=== PATIENT | male | born 1975 | race American Indian/Alaskan Native ===

== ENCOUNTER 2021-01-05 10:18 | Observation (INO) | payer SELFPAY ==
[2021-01-05] MEDS ORDERED: ONDANSETRON 4 MG/2 ML INJ IV ONE (16:46)
[2021-01-05] MEDS ORDERED: SODIUM CHLORIDE 0.9% 1000 ML 1,000 ML IV ONE (16:46)
[2021-01-05] MEDS ORDERED: MORPHINE 4 MG/1 ML INJ IV ONE (16:46)
[2021-01-05 17:41] LABS: Hematocrit 23.7 % (35.5-45.6); Hemoglobin 7.9 gm/dl (11.8-15.2); Mean Corpuscular HGB Conc 33 % (32-34); Mean Corpuscular Volume 83 fl (84-94); Red Blood Count 2.86 M/mm3 (3.65-5.03); Red Cell Distribution Width 19.8 % (13.2-15.2)
[2021-01-05 17:42] LABS: Platelet Count 93 K/mm3 (140-440)
[2021-01-05 17:51] LABS: Alanine Aminotransferase 100 units/L (7-56); Albumin 3.1 g/dL (3.9-5); BUN/Creatinine Ratio 7; Blood Urea Nitrogen 6 mg/dL (9-20); Hemolysis Index 0
--- NOTE | 2021-01-05 17:51 | Emergency Department Report ---
ED Abdominal Pain HPI - General Chief Complaint: Psych Stated Complaint: ABDOMINAL PAIN FROM SURGERY Time Seen by Provider: 01/05/21 16:45 Source: patient, EMS Mode of arrival: Ambulatory Limitations: No Limitations - History of Present Illness Initial Comments: This is a 45-year-old male nontoxic, well nourished in appearance, no acute signs of distress presents to the ED with c/o of nausea and vomiting and abdominal pain several days. Patient stated has history of appendectomy 2 weeks ago. Stated has a general surgeon scheduled for post-op next week. Patient describes vomiting as food content and yellow gastric acid. Patient describes abdominal pain as cramping and aching with level of 8/10 diffuse. Patient denies chest pain, short of breath, fever, hemoptysis, blood in stool, chills, headache, stiff neck, numbness or tingling. Patient denies any diarrhea or constipation. Denies any blood in stool. Patient denies any recent travels. Patient stated allergies to PCN. Stated past medical history includes appendectomy, asthma and psych. Patient stated has been feeling anxious due to pain. Denies any suicidal homicidal ideation. Denies any psychiatric complications or symptoms. MD Complaint: abdominal pain -: days(s) Location: diffuse Radiation: none Migration to: no migration Severity: moderate Severity scale (0 -10): 10 Quality: cramping, aching Improves With: nothing Worsens With: nothing Associated Symptoms: nausea, vomiting. denies: diarrhea, fever, chills, constipation, dysuria, hematemesis, hematochezia, melena, hematuria, anorexia, syncope - Related Data Allergies Allergy/AdvReac Type Severity Reaction Status Date / Time Penicillins Allergy Angioedema Verified 01/03/16 16:56 ED Review of Systems ROS: Stated complaint: ABDOMINAL PAIN FROM SURGERY Other details as noted in HPI Comment: All other systems reviewed and negative Constitutional: denies: chills, fever Eyes: denies: eye pain, eye discharge, vision change ENT: denies: ear pain, throat pain Respiratory: denies: cough, shortness of breath, wheezing Cardiovascular: denies: chest pain, palpitations Endocrine: no symptoms reported Gastrointestinal: abdominal pain, nausea, vomiting. denies: diarrhea, constipation, hematemesis, melena, hematochezia Genitourinary: denies: urgency, dysuria Musculoskeletal: denies: back pain, joint swelling, arthralgia Skin: denies: rash, lesions Neurological: denies: headache, weakness, paresthesias Psychiatric: denies: anxiety, depression Hematological/Lymphatic: denies: easy bleeding, easy bruising ED Past Medical Hx - Past Medical History Previous Medical History?: Yes Hx Psychiatric Treatment: Yes (anxiety) Hx Asthma: Yes - Surgical History Past Surgical History?: Yes Hx Appendectomy: Yes - Social History Smoking Status: Never Smoker Substance Use Type: None ED Physical Exam - General Limitations: No Limitations General appearance: alert, in no apparent distress - Head Head exam: Present: atraumatic, normocephalic - Eye Eye exam: Present: normal appearance - Neck Neck exam: Present: normal inspection, full ROM. Absent: tenderness, meningismus, lymphadenopathy - Respiratory Respiratory exam: Present: normal lung sounds bilaterally. Absent: respiratory distress, wheezes, rales, rhonchi, stridor, chest wall tenderness, accessory muscle use, decreased breath sounds, prolonged expiratory - Cardiovascular Cardiovascular Exam: Present: regular rate, normal rhythm, normal heart sounds. Absent: bradycardia, tachycardia, irregular rhythm, systolic murmur, diastolic murmur, rubs, gallop - GI/Abdominal GI/Abdominal exam: Present: soft, tenderness (diffuse), normal bowel sounds, other (kaya present to midline abdomen area s/p surgery). Absent: distended, guarding, rebound, rigid, diminished bowel sounds - Extremities Exam Extremities exam: Present: normal inspection, full ROM - Back Exam Back exam: Present: normal inspection, full ROM. Absent: tenderness, CVA tenderness (R), CVA tenderness (L), muscle spasm, paraspinal tenderness, vertebral tenderness, rash noted - Neurological Exam Neurological exam: Present: alert, oriented X3, normal gait - Psychiatric Psychiatric exam: Present: normal affect, normal mood - Skin Skin exam: Present: warm, dry, intact, normal color. Absent: rash ED Course Vital Signs 01/05/21 01/05/21 01/05/21 10:42 17:56 17:57 Temperature 98.8 F 97.8 F Pulse Rate 92 H 73 Respiratory 20 20 Rate Blood Pressure 127/85 Blood Pressure 131/72 [Right] O2 Sat by Pulse 96 99 100 Oximetry 01/05/21 01/05/21 01/05/21 19:45 20:00 20:16 Temperature Pulse Rate 61 72 Respiratory 12 11 L Rate Blood Pressure 127/81 127/81 Blood Pressure [Right] O2 Sat by Pulse 100 98 100 Oximetry - Reevaluation(s) Reevaluation #1: 01/05/21 19:14 Patient is speaking in full sentences with no signs of distress noted. - Consultations Consultation #1: 01/05/21 17:50 Patient has been consulted with Dr. Pearce about patient history, physical exam, and labs and agrees to the ED plan of care and admission. Consultation #2: 01/05/21 19:38 Patient has been consulted with Dr. Pearce about final lab results and imaging results and no blood transfusion at this time but patient to be admitted. Consultation #3: 01/05/21 21:24 Patient has been consulted with Dr. Chavez about patient history, physical exam, and labs/imaging results and accepts patient to services. ED Medical Decision Making - Lab Data Result diagrams: 01/05/21 17:19 01/05/21 17:19 Lab Results 01/05/21 01/05/21 01/05/21 Range/Units 17:19 17:19 17:57 WBC 1.6 L* (4.5-11.0) K/mm3 RBC 2.86 L (3.65-5.03) M/mm3 Hgb 7.9 L (11.8-15.2) gm/dl Hct 23.7 L (35.5-45.6) % MCV 83 L (84-94) fl MCH 28 (28-32) pg MCHC 33 (32-34) % RDW 19.8 H (13.2-15.2) % Plt Count 93 L (140-440) K/mm3 [place] % (Auto) [employer] Add Manual Diff Complete Total Counted 50 Seg Neuts % (Manual) 64.0 (40.0-70.0) % Lymphocytes % (Manual) 22.0 (13.4-35.0) % Monocytes % (Manual) 12.0 H (0.0-7.3) % Eosinophils % (Manual) 2.0 (0.0-4.3) % Nucleated RBC % Not Reportable Seg Neutrophils # Man 1.0 L (1.8-7.7) K/mm3 Band Neutrophils # 0.0 K/mm3 Lymphocytes # (Manual) 0.4 L (1.2-5.4) K/mm3 Abs React Lymphs (Man) 0.0 K/mm3 Monocytes # (Manual) 0.2 (0.0-0.8) K/mm3 Eosinophils # (Manual) 0.0 (0.0-0.4) K/mm3 Basophils # (Manual) 0.0 (0.0-0.1) K/mm3 Metamyelocytes # 0.0 K/mm3 Myelocytes # 0.0 K/mm3 Promyelocytes # 0.0 K/mm3 Blast Cells # 0.0 K/mm3 WBC Morphology Not Reportable Hypersegmented Neuts Not Reportable Hyposegmented Neuts Not Reportable Hypogranular Neuts Not Reportable Smudge Cells Not Reportable Toxic Granulation Not Reportable Toxic Vacuolation Not Reportable Dohle Bodies Not Reportable Pelger-Huet Anomaly Not Reportable Steffi Rods Not Reportable Platelet Estimate Consistent w auto Clumped Platelets Not Reportable Plt Clumps, EDTA Not Reportable Large Platelets Not Reportable Giant Platelets Not Reportable Platelet Satelliting Not Reportable Plt Morphology Comment Not Reportable RBC Morphology Not Reportable Dimorphic RBCs Not Reportable Polychromasia Not Reportable Hypochromasia Not Reportable Poikilocytosis 2+ Anisocytosis 1+ Microcytosis Not Reportable Macrocytosis Not Reportable Spherocytes Not Reportable Pappenheimer Bodies Not Reportable Sickle Cells Not Reportable Target Cells Not Reportable Tear Drop Cells Not Reportable Ovalocytes 1+ Helmet Cells Not Reportable [place] Bodies Not Reportable [place] Rings Not Reportable [place] Cells Few Bite Cells Not Reportable Crenated Cell Not Reportable Elliptocytes Few Acanthocytes (Spur) Not Reportable Rouleaux Not Reportable Hemoglobin C Crystals Not Reportable Schistocytes Rare Malaria parasites Not Reportable Josue Bodies Not Reportable Hem Pathologist Commnt No PT 13.3 (12.2-14.9) Sec. INR 0.95 (0.87-1.13) APTT 37.1 H (24.2-36.6) Sec. Sodium 141 (137-145) mmol/L Potassium 3.3 L (3.6-5.0) mmol/L Chloride 105.1 (98-107) mmol/L Carbon Dioxide 27 (22-30) mmol/L Anion Gap 12 mmol/L BUN 6 L (9-20) mg/dL Creatinine 0.9 (0.8-1.3) mg/dL Estimated GFR > 60 ml/min BUN/Creatinine Ratio 7 % Glucose 86 (75-100) mg/dL Calcium 8.0 L (8.4-10.2) mg/dL Total Bilirubin 0.30 (0.1-1.2) mg/dL AST 202 H (5-40) units/L ALT 100 H (7-56) units/L Alkaline Phosphatase 98 (35-129) units/L Troponin T (0.00-0.029) ng/mL Total Protein 6.6 (6.3-8.2) g/dL Albumin 3.1 L (3.9-5) g/dL Albumin/Globulin Ratio 0.9 % Lipase 162 H (13-60) units/L Blood Type Antibody Screen 01/05/21 01/05/21 Range/Units 17:57 17:57 WBC (4.5-11.0) K/mm3 RBC (3.65-5.03) M/mm3 Hgb (11.8-15.2) gm/dl Hct (35.5-45.6) % MCV (84-94) fl MCH (28-32) pg MCHC (32-34) % RDW (13.2-15.2) % Plt Count (140-440) K/mm3 [place] % (Auto) Add Manual Diff Total Counted Seg Neuts % (Manual) (40.0-70.0) % Lymphocytes % (Manual) (13.4-35.0) % Monocytes % (Manual) (0.0-7.3) % Eosinophils % (Manual) (0.0-4.3) % Nucleated RBC % Seg Neutrophils # Man (1.8-7.7) K/mm3 Band Neutrophils # K/mm3 Lymphocytes # (Manual) (1.2-5.4) K/mm3 Abs React Lymphs (Man) K/mm3 Monocytes # (Manual) (0.0-0.8) K/mm3 Eosinophils # (Manual) (0.0-0.4) K/mm3 Basophils # (Manual) (0.0-0.1) K/mm3 Metamyelocytes # K/mm3 Myelocytes # K/mm3 Promyelocytes # K/mm3 Blast Cells # K/mm3 WBC Morphology Hypersegmented Neuts Hyposegmented Neuts Hypogranular Neuts Smudge Cells Toxic Granulation Toxic Vacuolation Dohle Bodies Pelger-Huet Anomaly Steffi Rods Platelet Estimate Clumped Platelets Plt Clumps, EDTA Large Platelets Giant Platelets Platelet Satelliting Plt Morphology Comment RBC Morphology Dimorphic RBCs Polychromasia Hypochromasia Poikilocytosis Anisocytosis Microcytosis Macrocytosis Spherocytes Pappenheimer Bodies Sickle Cells Target Cells Tear Drop Cells Ovalocytes Helmet Cells [place] Bodies [place] Rings [place] Cells Bite Cells Crenated Cell Elliptocytes Acanthocytes (Spur) Rouleaux Hemoglobin C Crystals Schistocytes Malaria parasites Josue Bodies Hem Pathologist Commnt PT (12.2-14.9) Sec. INR (0.87-1.13) APTT (24.2-36.6) Sec. Sodium (137-145) mmol/L Potassium (3.6-5.0) mmol/L Chloride (98-107) mmol/L Carbon Dioxide (22-30) mmol/L Anion Gap mmol/L BUN (9-20) mg/dL Creatinine (0.8-1.3) mg/dL Estimated GFR ml/min BUN/Creatinine Ratio % Glucose (75-100) mg/dL Calcium (8.4-10.2) mg/dL Total Bilirubin (0.1-1.2) mg/dL AST (5-40) units/L ALT (7-56) units/L Alkaline Phosphatase (35-129) units/L Troponin T < 0.010 (0.00-0.029) ng/mL Total Protein (6.3-8.2) g/dL Albumin (3.9-5) g/dL Albumin/Globulin Ratio % Lipase (13-60) units/L Blood Type B POSITIVE Antibody Screen Negative - EKG Data 01/05/21 20:14 Normal sinus bradycardia at [address] or T wave abnormalities. No STEMI. Reviewed and signed by Brien Fischer. - Radiology Data [facility] [address] [place] [address] XRay Report Signed Patient: ALEJANDRO JARRELL MR#: [id number] : 1975 Acct:[id number] Age/Sex: 45 / M ADM Date: 01/05/21 Loc: ED Attending Dr: Ordering Physician: BRENDA SANTIAGO NP Date of Service: 01/05/21 Procedure(s): XR chest routine 2V Accession Number(s): [id number] cc: BRENDA SANTIAGO NP Fluoro Time In Minutes: CHEST 2 VIEWS INDICATION / CLINICAL INFORMATION: Chest Pain. COMPARISON: None available. FINDINGS: SUPPORT DEVICES: None. HEART / MEDIASTINUM: No significant abnormality. LUNGS / PLEURA: No significant pulmonary or pleural abnormality. No pneumothorax. ADDITIONAL FINDINGS: No significant additional findings. IMPRESSION: 1. No acute findings. Signer Name: Viktor Petty MD Signed: 01/05/2021 6:28 PM Workstation Name: [id number] Transcribed By: SS Dictated By: Viktor Petty MD Electronically Authenticated By: Viktor Petty MD Signed Date/Time: 01/05/211827 DD/ 27 TD/TT: [place] [address] Cat Scan Report Signed Patient: ALEJANDRO JARRELL MR#: [id number] : 1975 Acct:[id number] Age/Sex: 45 / M ADM Date: 01/05/21 Loc: ED Attending Dr: Ordering Physician: BRENDA SANTIAGO NP Date of Service: 01/05/21 Procedure(s): CT abdomen pelvis w con Accession Number(s): [id number] cc: BRENDA SANTIAGO NP CT OF THE ABDOMEN AND PELVIS WITH INTRAVENOUS CONTRAST INDICATION / CLINICAL INFORMATION: Abdominal pain with nausea and vomiting s/p appendectomy. TECHNIQUE: The patient received 100 cc Omnipaque [address] scans at this location are performed using CT dose reduction for ALARA by means of automated exposure control. COMPARISON: None available. FINDINGS: ABDOMEN: The liver, gallbladder, bile ducts, pancreas, spleen, adrenal glands and kidneys are normal in appearance. There is no evidence of bowel obstruction, wall thickening or free air. No adenopathy is present. The lung bases are clear. PELVIS: The distal ureters and urinary bladder are normal. The prostate gland and seminal vesicles are unremarkable. The appendix is surgically absent. There are surgical clips involving the lower anterior abdominal wall in the midline. There is no evidence of diverticulitis. No abnormal mass or fluid collection is seen. I do not identify a hernia. Bilateral small symmetric inguinal lymph nodes are likely reactive. No acute osseous abnormality is seen. IMPRESSION: Prior appendectomy. No acute intra-abdominal disease is identified. No complication of surgery is seen. Signer Name: Khanh Jarquin MD Signed: 01/05/2021 6:44 PM Workstation Name: [id number] Transcribed By: RT Dictated By: Khanh Jarquin MD Electronically Authenticated By: Khanh Jarquin MD Signed Date/Time: 01/05/211843 DD/ 39 TD/TT: - Medical Decision Making 36-year-old male that presents with thrombocytopenia, neutropenia, abdominal pain with nausea vomiting. Patient is stable and was examined by me. Patient consulted with my attending Dr. Pearce which agrees to the ED plan of care and admission. Patient admitted with hospitalist Dr. Chavez. Patient is notified of the lab results and imaging results with no questions noted by the patient. Patient received IV resuscitation which stated pain is under control with no n/v. At time of admission, the patient does not seem toxic or ill in appearance. No acute signs of distress noted. Patient agrees to admission treatment plan of care. No further questions noted by the patient. Critical care attestation.: If time is entered above; I have spent that time in minutes in the direct care of this critically ill patient, excluding procedure time. ED Disposition Clinical Impression: Thrombocytopenia, Abdominal pain of unknown cause Neutropenia Qualifiers: Neutropenia type: unspecified Qualified Code(s): D70.9 - Neutropenia, unspecified Nausea & vomiting Qualifiers: Vomiting type: unspecified Vomiting Intractability: non-intractable Qualified Code(s): R11.2 - Nausea with vomiting, unspecified Disposition: ADMITTED INPATIENT Is pt being admited?: Yes Condition: Stable
[2021-01-05] MEDS ORDERED: POTASSIUM CHLORIDE ER 20 MEQ TAB PO ONE (18:07)
--- NOTE | 2021-01-05 18:33 | XRay Report ---
CHEST 2 VIEWS INDICATION / CLINICAL INFORMATION: Chest Pain. COMPARISON: None available. FINDINGS: SUPPORT DEVICES: None. HEART / MEDIASTINUM: No significant abnormality. LUNGS / PLEURA: No significant pulmonary or pleural abnormality. No pneumothorax. ADDITIONAL FINDINGS: No significant additional findings. IMPRESSION: 1. No acute findings. Signer Name: Viktor Petty MD Signed: 01/05/2021 6:28 PM Workstation Name: [id number]
[2021-01-05 18:41] LABS: INR 0.95 (0.87-1.13)
[2021-01-05 18:42] LABS: Partial Thromboplastin Time 37.1 Sec. (24.2-36.6)
--- NOTE | 2021-01-05 18:48 | Cat Scan Report ---
CT OF THE ABDOMEN AND PELVIS WITH INTRAVENOUS CONTRAST INDICATION / CLINICAL INFORMATION: Abdominal pain with nausea and vomiting s/p appendectomy. TECHNIQUE: The patient received 100 cc Omnipaque [address] scans at this location are performed using CT dose reduction for ALARA by means of automated exposure control. COMPARISON: None available. FINDINGS: ABDOMEN: The liver, gallbladder, bile ducts, pancreas, spleen, adrenal glands and kidneys are normal in appearance. There is no evidence of bowel obstruction, wall thickening or free air. No adenopathy is present. The lung bases are clear. PELVIS: The distal ureters and urinary bladder are normal. The prostate gland and seminal vesicles ar e unremarkable. The appendix is surgically absent. There are surgical clips involving the lower anter ior abdominal wall in the midline. There is no evidence of diverticulitis. No abnormal mass or fluid collection is seen. I do not identify a hernia. Bilateral small symmetric inguinal lymph nodes are li geri reactive. No acute osseous abnormality is seen. IMPRESSION: Prior appendectomy. No acute intra-abdominal disease is identified. No complication of bolaños rgery is seen. Signer Name: Khanh Jarquin MD Signed: 01/05/2021 6:44 PM Workstation Name: [id number]
[2021-01-05 19:48] LABS: Anisocytosis 1+; Poikilocytosis 2+; Total Cells Counted 50
[2021-01-05 19:49] LABS: Burr Cells Few; Ovalocytes 1+; Platelet Estimate Consistent w Auto; Schistocytes Rare
[2021-01-05] MEDS ORDERED: VANCOMYCIN/NS 1 GM/250 ML 1 GM/250 ML BAG IV ONE (21:32)
--- NOTE | 2021-01-05 22:08 | History and Physical Report ---
History of Present Illness Date of examination: 01/05/21 Date of admission: 01/05 Chief complaint: abdominal pain History of present illness: This is a 45-year-old male that presented to ED with chief complaint of abdominal pain and nausea and vomiting. Patient stated has history of appendectomy 2 weeks ago. Patient describes abdominal pain as cramping and aching with level of 9/10 diffuse. Patient denies chest pain, short of breath, fever, hemoptysis, blood in stool, chills, headache, stiff neck, numbness or tingling. Patient denies any diarrhea or constipation. Patient denies tobacco use, alcohol use and illicit drug use. Patient said he lives in [place]. He is visiting nephew and started having abdominal pain, then he came to the hospital. Patient said he will be going back to [facility] when discharged. Patient said he lives alone but may not be able to live by himself anymore because of his illness. Reviewed lab medication record, and vital signs. Patient has no all blood counts including WBC and platelet level. Heme oncologist has been consulted. CT of the abdomen done with no acute finding. Past History Past Medical History: other (Appendicitis, asthma, and anxiety) Past Surgical History: Other (Appendectomy) Social history: Lives alone Family history: no significant family history Medications and Allergies Allergies Allergy/AdvReac Type Severity Reaction Status Date / Time Penicillins Allergy Angioedema Verified 01/03/16 16:56 Active Meds: Active Medications Vancomycin HCl (Vancomycin/Ns 1 Gm/250 Ml) 1 gm in 250 mls @ 167.007 mls/hr IV ONCE ONE; Protocol Stop: 01/05/21 23:01 Levofloxacin/Dextrose (Levaquin 750mg/150ml) 750 mg in 150 mls @ 100 mls/hr IV ONCE ONE; Protocol Stop: 01/05/21 23:03 Review of Systems Constitutional: fatigue, weakness Ears, nose, mouth and throat: no epistaxis, no bleeding gums Cardiovascular: no chest pain Respiratory: no wheezing Gastrointestinal: abdominal pain, nausea Genitourinary Male: no genital sores Rectal: no hemorrhoids Musculoskeletal: muscle weakness Integumentary: rash (Dry scaly rash but no open sores) Neurological: no convulsions Psychiatric: anxiety Hematologic/Lymphatic: no easy bruising, no easy bleeding Allergic/Immunologic: no urticaria Exam - Constitutional Vitals: Temp Pulse Resp BP Pulse Ox 97.8 F 72 11 L 127/81 100 01/05/21 17:56 01/05/21 20:16 01/05/21 20:16 01/05/21 20:16 01/05/21 20:16 General appearance: Present: mild distress, other (Fragile appearing patient) - EENT Eyes: Absent: exopthalmos ENT: hearing intact, clear oral mucosa - Neck Neck: Present: supple, normal ROM - Respiratory Respiratory effort: normal Respiratory: bilateral: CTA - Cardiovascular Heart Sounds: Present: S1 & S2. Absent: rub, click - Extremities Extremities: pulses symmetrical, No edema Peripheral Pulses: within normal limits - Abdominal General gastrointestinal: Present: soft, tender, non-distended, normal bowel sounds, other (Abdominal incision from appendectomy tender on palpation, no drainage, kaya intact) Male genitourinary: Present: normal - Integumentary Integumentary: Present: clear, warm, dry - Musculoskeletal Musculoskeletal: gait normal, strength equal bilaterally - Psychiatric Psychiatric: appropriate mood/affect, intact judgment & insight, cooperative - Neurologic Neurologic: CNII-XII intact, moves all extremities - Allied Health Allied health notes reviewed: nursing HEART Score - HEART Score Troponin: Troponin T < 0.010 ng/mL (0.00-0.029) 01/05/21 20:56 Results - Labs CBC & Chem 7: 01/06/21 04:58 01/06/21 04:58 Labs: Abnormal lab results 01/05/21 01/05/21 01/05/21 Range/Units 17:19 17:19 17:57 WBC 1.6 L* (4.5-11.0) K/mm3 RBC 2.86 L (3.65-5.03) M/mm3 Hgb 7.9 L (11.8-15.2) gm/dl Hct 23.7 L (35.5-45.6) % MCV 83 L (84-94) fl RDW 19.8 H (13.2-15.2) % Plt Count 93 L (140-440) K/mm3 Monocytes % (Manual) 12.0 H (0.0-7.3) % Seg Neutrophils # Man 1.0 L (1.8-7.7) K/mm3 Lymphocytes # (Manual) 0.4 L (1.2-5.4) K/mm3 APTT 37.1 H (24.2-36.6) Sec. Potassium 3.3 L (3.6-5.0) mmol/L BUN 6 L (9-20) mg/dL Calcium 8.0 L (8.4-10.2) mg/dL AST 202 H (5-40) units/L ALT 100 H (7-56) units/L Albumin 3.1 L (3.9-5) g/dL Lipase 162 H (13-60) units/L Assessment and Plan - Patient Problems (1) Abdominal pain of unknown cause Current Visit: Yes Status: Acute Plan to address problem: CT of the abdomen done showed no acute process As needed pain management (2) Nausea & vomiting Current Visit: Yes Status: Acute Qualifiers: Vomiting type: unspecified Vomiting Intractability: non-intractable Qualified Code(s): R11.2 - Nausea with vomiting, unspecified Plan to address problem: Antiemetic as needed (3) Neutropenia Current Visit: Yes Status: Acute Qualifiers: Neutropenia type: unspecified Qualified Code(s): D70.9 - Neutropenia, unspecified Plan to address problem: Unknown causeinfection? Patient denies Covid infection exposurehe said he was tested and it was negative We will consult heme oncologist Dr. Jackson (4) Thrombocytopenia Current Visit: Yes Status: Acute Plan to address problem: Questionable causeviral infection/bone marrow disease Monitor platelet level Bleeding precautionheme oncologist has been consulted follow-up with plan of care (5) Elevated liver enzymes Current Visit: Yes Status: Acute Plan to address problem: Questionable causepatient denies alcohol use/viral infection Monitor liver enzymes
[2021-01-05] MEDS ORDERED: ACETAMINOPHEN 325 MG TAB PO PRN ×2 (22:11→22:17)
[2021-01-05] MEDS ORDERED: IBUPROFEN 600 MG TAB PO PRN (22:17)
[2021-01-05] MEDS ORDERED: ONDANSETRON 4 MG/2 ML INJ IV PRN (22:17)
[2021-01-06] MEDS: FAMOTIDINE 20 MG/2 ML INJ IV SCH ×2 (00:27→11:35)
[2021-01-06 00:55] LABS: Bilirubin,Urine NEG (Negative); Blood,Urine MOD (Negative); Color,Urine Yellow (Yellow); Mucus,Urine FEW /HPF; Urobilinogen,Urine < 2.0 mg/dL (<2.0)
[2021-01-06 05:24] LABS: Alanine Aminotransferase 90 units/L (7-56); Albumin 2.8 g/dL (3.9-5); BUN/Creatinine Ratio 8; Blood Urea Nitrogen 6 mg/dL (9-20); Calcium 7.6 mg/dL (8.4-10.2); Hemolysis Index 2
[2021-01-06 06:31] LABS: Hematocrit 22.5 % (35.5-45.6); Hemoglobin 7.5 gm/dl (11.8-15.2); Mean Corpuscular HGB Conc 33 % (32-34); Mean Corpuscular Volume 82 fl (84-94); Red Blood Count 2.73 M/mm3 (3.65-5.03); Red Cell Distribution Width 19.2 % (13.2-15.2)
[2021-01-06 06:59] LABS: Platelet Count 90 K/mm3 (140-440)
--- NOTE | 2021-01-06 10:17 | Electrocardiograph Report ---
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
--- NOTE | 2021-01-06 10:38 | Hem/Onc Consultation ---
History of Present Illness - History of Present Illness premil note heme consult for pancytopenia 45yo man with no listed chronicmedical problems appendectomy 2 weeks ago abd pain, vomiting found to have pancytopenia data reviewed below Abd CT nothing acute IMP: pancytopenia, r/o heme malignancy or infection abd pain, cause unknown PLAN/REC: eval for covid infection try to obtain records from recent hospitalization consider RBC transfusion will consider requesting BM biopsy Laboratory Last Values WBC 1.6 K/mm3 (4.5-11.0) L* 01/06/21 04:58 Hgb 7.5 gm/dl (11.8-15.2) L 01/06/21 04:58 Hct 22.5 % (35.5-45.6) L 01/06/21 04:58 Plt Count 90 K/mm3 (140-440) L 01/06/21 04:58 Seg Neuts % (Manual) 64.0 % (40.0-70.0) 01/05/21 17:19 Lymphocytes % (Manual) 22.0 % (13.4-35.0) 01/05/21 17:19 Monocytes % (Manual) 12.0 % (0.0-7.3) H 01/05/21 17:19 Eosinophils % (Manual) 2.0 % (0.0-4.3) 01/05/21 17:19 PT 13.3 Sec. (12.2-14.9) 01/05/21 17:57 INR 0.95 (0.87-1.13) 01/05/21 17:57 APTT 37.1 Sec. (24.2-36.6) H 01/05/21 17:57 Creatinine 0.8 mg/dL (0.8-1.3) 01/06/21 04:58 Total Bilirubin 0.20 mg/dL (0.1-1.2) 01/06/21 04:58 AST 180 units/L (5-40) H 01/06/21 04:58 ALT 90 units/L (7-56) H 01/06/21 04:58 Alkaline Phosphatase 92 units/L (35-129) 01/06/21 04:58 Lipase 162 units/L (13-60) H 01/05/21 17:19 Antibody Screen Negative 01/05/21 17:57 Past History Past Medical History: other (Appendicitis, asthma, and anxiety) Past Surgical History: Other (Appendectomy) Social history: Lives alone Family history: no significant family history Medications and Allergies Allergies Allergy/AdvReac Type Severity Reaction Status Date / Time Penicillins Allergy Angioedema Verified 01/03/16 16:56 Active Meds: Active Medications Acetaminophen (Acetaminophen 325 Mg Tab) 650 mg PO Q4H PRN PRN Reason: Pain MILD(1-3)/Fever >100.5/STEPHENS Famotidine (Famotidine 20 Mg/2 Ml Inj) 20 mg IV BID [facility] Last Admin: 01/06/21 00:27 Dose: 20 mg Documented by: Levofloxacin (Levofloxacin 500 Mg Tab) 500 mg PO Q24HR YANELIS; Protocol Morphine Sulfate (Morphine 2 Mg/1 Ml Inj) 2 mg IV Q4H PRN PRN Reason: Pain, Moderate (4-6) Ondansetron HCl (Ondansetron 4 Mg/2 Ml Inj) 4 mg IV Q8H PRN PRN Reason: Nausea And Vomiting Oxycodone/Acetaminophen (Oxycodone /Acetaminophen 5-325mg Tab) 1 tab PO Q6H PRN PRN Reason: Pain, Moderate (4-6) Sodium Chloride (Sodium Chloride 0.9% 10 Ml Flush Syringe) 10 ml IV BID [facility] Sodium Chloride (Sodium Chloride 0.9% 10 Ml Flush Syringe) 10 ml IV PRN PRN PRN Reason: LINE FLUSH Exam - Constitutional Vitals: Last Vital Signs Temp 98 F 01/06/21 07:49 Pulse 70 01/06/21 07:49 Resp 16 01/06/21 08:00 BP 122/80 01/06/21 07:49 Pulse Ox 100 01/06/21 08:00 Results - Labs lab Results: Laboratory Results - last 24 hr 01/05/21 01/05/21 01/05/21 17:19 17:19 17:57 WBC 1.6 L* RBC 2.86 L Hgb 7.9 L Hct 23.7 L MCV 83 L MCH 28 MCHC 33 RDW 19.8 H Plt Count 93 L [place] % (Auto) Manager Pmo Eos % (Auto) Add Manual Diff Complete Total Counted 50 Seg Neuts % (Manual) 64.0 Lymphocytes % (Manual) 22.0 Monocytes % (Manual) 12.0 H Eosinophils % (Manual) 2.0 Nucleated RBC % Not Reportable Seg Neutrophils # Man 1.0 L Band Neutrophils # 0.0 Lymphocytes # (Manual) 0.4 L Abs React Lymphs (Man) 0.0 Monocytes # (Manual) 0.2 Eosinophils # (Manual) 0.0 Basophils # (Manual) 0.0 Metamyelocytes # 0.0 Myelocytes # 0.0 Promyelocytes # 0.0 Blast Cells # 0.0 WBC Morphology Not Reportable Hypersegmented Neuts Not Reportable Hyposegmented Neuts Not Reportable Hypogranular Neuts Not Reportable Smudge Cells Not Reportable Toxic Granulation Not Reportable Toxic Vacuolation Not Reportable Dohle Bodies Not Reportable Pelger-Huet Anomaly Not Reportable Steffi Rods Not Reportable Platelet Estimate Consistent w auto Clumped Platelets Not Reportable Plt Clumps, EDTA Not Reportable Large Platelets Not Reportable Giant Platelets Not Reportable Platelet Satelliting Not Reportable Plt Morphology Comment Not Reportable RBC Morphology Not Reportable Dimorphic RBCs Not Reportable Polychromasia Not Reportable Hypochromasia Not Reportable Poikilocytosis 2+ Anisocytosis 1+ Microcytosis Not Reportable Macrocytosis Not Reportable Spherocytes Not Reportable Pappenheimer Bodies Not Reportable Sickle Cells Not Reportable Target Cells Not Reportable Tear Drop Cells Not Reportable Ovalocytes 1+ Helmet Cells Not Reportable [place] Bodies Not Reportable [place] Rings Not Reportable Praveena Cells Few Bite Cells Not Reportable Crenated Cell Not Reportable Elliptocytes Few Acanthocytes (Spur) Not Reportable Rouleaux Not Reportable Hemoglobin C Crystals Not Reportable Schistocytes Rare Malaria parasites Not Reportable Josue Bodies Not Reportable Hem Pathologist Commnt No PT 13.3 INR 0.95 APTT 37.1 H Sodium 141 Potassium 3.3 L Chloride 105.1 Carbon Dioxide 27 Anion Gap 12 BUN 6 L Creatinine 0.9 Estimated GFR > 60 BUN/Creatinine Ratio 7 Glucose 86 Calcium 8.0 L Total Bilirubin 0.30 AST 202 H ALT 100 H Alkaline Phosphatase 98 Troponin T Total Protein 6.6 Albumin 3.1 L Albumin/Globulin Ratio 0.9 Lipase 162 H Urine Color Urine Turbidity Urine pH Ur Specific Speculator Urine Protein Urine Glucose (UA) Urine Ketones Urine Blood Urine Nitrite Urine Bilirubin Urine Urobilinogen Ur Leukocyte Esterase Urine WBC (Auto) Urine RBC (Auto) U Epithel Cells (Auto) Urine Mucus Blood Type Antibody Screen 01/05/21 01/05/21 01/05/21 17:57 17:57 20:56 WBC RBC Hgb Hct MCV MCH MCHC RDW Plt Count [place] % (Auto) Eos % (Auto) Add Manual Diff Total Counted Seg Neuts % (Manual) Lymphocytes % (Manual) Monocytes % (Manual) Eosinophils % (Manual) Nucleated RBC % Seg Neutrophils # Man Band Neutrophils # Lymphocytes # (Manual) Abs React Lymphs (Man) Monocytes # (Manual) Eosinophils # (Manual) Basophils # (Manual) Metamyelocytes # Myelocytes # Promyelocytes # Blast Cells # WBC Morphology Hypersegmented Neuts Hyposegmented Neuts Hypogranular Neuts Smudge Cells Toxic Granulation Toxic Vacuolation Dohle Bodies Pelger-Huet Anomaly Steffi Rods Platelet Estimate Clumped Platelets Plt Clumps, EDTA Large Platelets Giant Platelets Platelet Satelliting Plt Morphology Comment RBC Morphology Dimorphic RBCs Polychromasia Hypochromasia Poikilocytosis Anisocytosis Microcytosis Macrocytosis Spherocytes Pappenheimer Bodies Sickle Cells Target Cells Tear Drop Cells Ovalocytes Helmet Cells [place] Bodies [place] Rings Praveena Cells Bite Cells Crenated Cell Elliptocytes Acanthocytes (Spur) Rouleaux Hemoglobin C Crystals Schistocytes Malaria parasites Josue Bodies Hem Pathologist Commnt PT INR APTT Sodium Potassium Chloride Carbon Dioxide Anion Gap BUN Creatinine Estimated GFR BUN/Creatinine Ratio Glucose Calcium Total Bilirubin AST ALT Alkaline Phosphatase Troponin T < 0.010 < 0.010 Total Protein Albumin Albumin/Globulin Ratio Lipase Urine Color Urine Turbidity Urine pH Ur Specific Speculator Urine Protein Urine Glucose (UA) Urine Ketones Urine Blood Urine Nitrite Urine Bilirubin Urine Urobilinogen Ur Leukocyte Esterase Urine WBC (Auto) Urine RBC (Auto) U Epithel Cells (Auto) Urine Mucus Blood Type B POSITIVE Antibody Screen Negative 01/06/21 01/06/21 01/06/21 04:58 04:58 Unknown WBC 1.6 L* RBC 2.73 L Hgb 7.5 L Hct 22.5 L MCV 82 L MCH 27 L MCHC 33 RDW 19.2 H Plt Count 90 L [place] % (Auto) Manager Pmo Eos % (Auto) Manager Pmo Add Manual Diff Total Counted Seg Neuts % (Manual) Lymphocytes % (Manual) Monocytes % (Manual) Eosinophils % (Manual) Nucleated RBC % Seg Neutrophils # Man Band Neutrophils # Lymphocytes # (Manual) Abs React Lymphs (Man) Monocytes # (Manual) Eosinophils # (Manual) Basophils # (Manual) Metamyelocytes # Myelocytes # Promyelocytes # Blast Cells # WBC Morphology Hypersegmented Neuts Hyposegmented Neuts Hypogranular Neuts Smudge Cells Toxic Granulation Toxic Vacuolation Dohle Bodies Pelger-Huet Anomaly Steffi Rods Platelet Estimate Clumped Platelets Plt Clumps, EDTA Large Platelets Giant Platelets Platelet Satelliting Plt Morphology Comment RBC Morphology Dimorphic RBCs Polychromasia Hypochromasia Poikilocytosis Anisocytosis Microcytosis Macrocytosis Spherocytes Pappenheimer Bodies Sickle Cells Target Cells Tear Drop Cells Ovalocytes Helmet Cells [place] Bodies [place] Rings Praveena Cells Bite Cells Crenated Cell Elliptocytes Acanthocytes (Spur) Rouleaux Hemoglobin C Crystals Schistocytes Malaria parasites Josue Bodies Hem Pathologist Commnt PT INR APTT Sodium 140 Potassium 3.6 Chloride 106.1 Carbon Dioxide 26 Anion Gap 12 BUN 6 L Creatinine 0.8 Estimated GFR > 60 BUN/Creatinine Ratio 8 Glucose 90 Calcium 7.6 L Total Bilirubin 0.20 AST 180 H ALT 90 H Alkaline Phosphatase 92 Troponin T Total Protein 5.8 L Albumin 2.8 L Albumin/Globulin Ratio 0.9 Lipase Urine Color Yellow Urine Turbidity Clear Urine pH 7.0 Ur Specific Speculator 1.030 Urine Protein 30 mg/dl Urine Glucose (UA) Neg Urine Ketones Neg Urine Blood Mod Urine Nitrite Neg Urine Bilirubin Neg Urine Urobilinogen < 2.0 Ur Leukocyte Esterase Neg Urine WBC (Auto) 7.0 H Urine RBC (Auto) 4.0 U Epithel Cells (Auto) < 1.0 Urine Mucus Few Blood Type Antibody Screen
[2021-01-06 10:55] LABS: Platelet Estimate Consistent w Auto; Total Cells Counted 100
[2021-01-06 11:01] LABS: Hypochromasia 3+; Poikilocytosis 3+; Tear Drop Cells 3+
[2021-01-06 11:02] LABS: Anisocytosis 1+; Burr Cells Few; Ovalocytes 1+; Schistocytes Rare
[2021-01-06] MEDS: MORPHINE 2 MG/1 ML INJ IV PRN (11:35)
[2021-01-06] MEDS: oxyCODONE /ACETAMINOPHEN 5-325MG TAB PO PRN (11:35)
--- NOTE | 2021-01-06 14:42 | Progress Note ---
Assessment and Plan Assessment and plan: This is a 45-year-old male that presented to ED with chief complaint of abdominal pain and nausea and vomiting. Patient stated has history of appendectomy 2 weeks ago. Patient describes abdominal pain as cramping and aching with level of 9/10 diffuse. Patient denies chest pain, short of breath, fever, hemoptysis, blood in stool, chills, headache, stiff neck, numbness or tingling. Patient denies any diarrhea or constipation. Patient denies tobacco use, alcohol use and illicit drug use. Patient said he lives in [place]. He is visiting nephew and started having abdominal pain, then he came to the hospital. Patient said he will be going back to [facility] when discharged. Patient said he lives alone but may not be able to live by himself anymore because of his illness. Reviewed lab medication record, and vital signs. Patient has no all blood counts including WBC and platelet level. Heme oncologist has been consulted. CT of the abdomen done with no acute finding. CT of the abdomen pelvis was negative for acute pathology except for postsurgical changes.. 01/06: Patient still with surgical sutures. Surgery consulted to assist with property management specialist has diffuse tenderness. Managed Services Sales Consultant assisted with pancytopenia. Continue pain control. Have requested records from his facility outside to further evaluate and help with management. (1) Abdominal pain of unknown cause Current Visit: Yes Status: Acute Plan to address problem: CT of the abdomen done showed no acute process As needed pain management (2) Nausea & vomiting Current Visit: Yes Status: Acute Qualifiers: Vomiting type: unspecified Vomiting Intractability: non-intractable Quali fied Code(s): R11.2 - Nausea with vomiting, unspecified Plan to address problem: Antiemetic as needed (3) Neutropenia Current Visit: Yes Status: Acute Qualifiers: Neutropenia type: unspecified Qualified Code(s): D70.9 - Neutropenia, unspecified Plan to address problem: Unknown causeinfection? Patient denies Covid infection exposurehe said he was tested and it was negative We will consult heme oncologist Dr. Jackson (4) Thrombocytopenia Current Visit: Yes Status: Acute Plan to address problem: Questionable causeviral infection/bone marrow disease Monitor platelet level Bleeding precautionheme oncologist has been consulted follow-up with plan of care (5) Elevated liver enzymes Current Visit: Yes Status: Acute Plan to address problem: Questionable causepatient denies alcohol use/viral infection Monitor liver enzymes History Interval history: Patient seen and examined resting comfortably molder machine tender 7/10 in the abdomen. Hospitalist Physical - Physical exam Narrative exam: General appearance: Present: mild distress, other (Fragile appearing patient) - EENT Eyes: Absent: exopthalmos ENT: hearing intact, clear oral mucosa - Neck Neck: Present: supple, normal ROM - Respiratory Respiratory effort: normal Respiratory: bilateral: CTA - Cardiovascular Heart Sounds: Present: S1 & S2. Absent: rub, click - Extremities Extremities: pulses symmetrical, No edema Peripheral Pulses: within normal limits - Abdominal General gastrointestinal: Present: soft, tender, non-distended, normal bowel sounds, other (Abdominal incision from appendectomy tender on palpation, no drainage, kaya intact) Male genitourinary: Present: normal - Integumentary Integumentary: Present: clear, warm, dry - Musculoskeletal Musculoskeletal: gait normal, strength equal bilaterally - Psychiatric Psychiatric: appropriate mood/affect, intact judgment & insight, cooperative - Neurologic Neurologic: CNII-XII intact, moves all extremities - Allied Health Allied health notes reviewed: nursing - Constitutional Vitals: Temp Pulse Resp BP Pulse Ox 98 F 74 13 111/64 100 01/06/21 07:49 01/06/21 11:30 01/06/21 11:30 01/06/21 11:30 01/06/21 11:30 General appearance: Present: mild distress, other (Fragile appearing patient) HEART Score - HEART Score Troponin: Troponin T < 0.010 ng/mL (0.00-0.029) 01/05/21 20:56 Results - Labs CBC & Chem 7: 01/06/21 04:58 01/06/21 04:58 Labs: Laboratory Last Values WBC 1.6 K/mm3 (4.5-11.0) L* 01/06/21 04:58 RBC 2.73 M/mm3 (3.65-5.03) L 01/06/21 04:58 Hgb 7.5 gm/dl (11.8-15.2) L 01/06/21 04:58 Hct 22.5 % (35.5-45.6) L 01/06/21 04:58 MCV 82 fl (84-94) L 01/06/21 04:58 MCH 27 pg (28-32) L 01/06/21 04:58 MCHC 33 % (32-34) 01/06/21 04:58 RDW 19.2 % (13.2-15.2) H 01/06/21 04:58 Plt Count 90 K/mm3 (140-440) L 01/06/21 04:58 [place] % (Auto) Nail Mill Worker 01/06/21 04:58 Eos % (Auto) Nail Mill Worker 01/06/21 04:58 Add Manual Diff Complete 01/06/21 04:58 Total Counted 100 01/06/21 04:58 Seg Neuts % (Manual) 56.0 % (40.0-70.0) 01/06/21 04:58 Lymphocytes % (Manual) 24.0 % (13.4-35.0) 01/06/21 04:58 Monocytes % (Manual) 5.0 % (0.0-7.3) 01/06/21 04:58 Eosinophils % (Manual) 13.0 % (0.0-4.3) H 01/06/21 04:58 Metamyelocytes % 2.0 % 01/06/21 04:58 Nucleated RBC % 2.0 % (0.0-0.9) H 01/06/21 04:58 Seg Neutrophils # Man 0.9 K/mm3 (1.8-7.7) L 01/06/21 04:58 Band Neutrophils # 0.0 K/mm3 01/06/21 04:58 Lymphocytes # (Manual) 0.4 K/mm3 (1.2-5.4) L 01/06/21 04:58 Abs React Lymphs (Man) 0.0 K/mm3 01/06/21 04:58 Monocytes # (Manual) 0.1 K/mm3 (0.0-0.8) 01/06/21 04:58 Eosinophils # (Manual) 0.2 K/mm3 (0.0-0.4) 01/06/21 04:58 Basophils # (Manual) 0.0 K/mm3 (0.0-0.1) 01/06/21 04:58 Metamyelocytes # 0.0 K/mm3 01/06/21 04:58 Myelocytes # 0.0 K/mm3 01/06/21 04:58 Promyelocytes # 0.0 K/mm3 01/06/21 04:58 Blast Cells # 0.0 K/mm3 01/06/21 04:58 WBC Morphology Not Reportable 01/06/21 04:58 Hypersegmented Neuts Not Reportable 01/06/21 04:58 Hyposegmented Neuts Not Reportable 01/06/21 04:58 Hypogranular Neuts Not Reportable 01/06/21 04:58 Smudge Cells Not Reportable 01/06/21 04:58 Toxic Granulation Not Reportable 01/06/21 04:58 Toxic Vacuolation Not Reportable 01/06/21 04:58 Dohle Bodies Not Reportable 01/06/21 04:58 Pelger-Huet Anomaly Not Reportable 01/06/21 04:58 Steffi Rods Not Reportable 01/06/21 04:58 Platelet Estimate Consistent w auto 01/06/21 04:58 Clumped Platelets Not Reportable 01/06/21 04:58 Plt Clumps, EDTA Not Reportable 01/06/21 04:58 Large Platelets Not Reportable 01/06/21 04:58 Giant Platelets Not Reportable 01/06/21 04:58 Platelet Satelliting Not Reportable 01/06/21 04:58 Plt Morphology Comment Not Reportable 01/06/21 04:58 RBC Morphology Not Reportable 01/06/21 04:58 Dimorphic RBCs Not Reportable 01/06/21 04:58 Polychromasia Not Reportable 01/06/21 04:58 Hypochromasia 3+ 01/06/21 04:58 Poikilocytosis 3+ 01/06/21 04:58 Anisocytosis 1+ 01/06/21 04:58 Microcytosis Not Reportable 01/06/21 04:58 Macrocytosis Not Reportable 01/06/21 04:58 Spherocytes Not Reportable 01/06/21 04:58 Pappenheimer Bodies Not Reportable 01/06/21 04:58 Sickle Cells Not Reportable 01/06/21 04:58 Target Cells Not Reportable 01/06/21 04:58 Tear Drop Cells 3+ 01/06/21 04:58 Ovalocytes 1+ 01/06/21 04:58 Helmet Cells Not Reportable 01/06/21 04:58 [place] Bodies Not Reportable 01/06/21 04:58 [place] Rings Not Reportable 01/06/21 04:58 Praveena Cells Few 01/06/21 04:58 Bite Cells Not Reportable 01/06/21 04:58 Crenated Cell Not Reportable 01/06/21 04:58 Elliptocytes Not Reportable 01/06/21 04:58 Acanthocytes (Spur) Not Reportable 01/06/21 04:58 Rouleaux Not Reportable 01/06/21 04:58 Hemoglobin C Crystals Not Reportable 01/06/21 04:58 Schistocytes Rare 01/06/21 04:58 Malaria parasites Not Reportable 01/06/21 04:58 Josue Bodies Not Reportable 01/06/21 04:58 Hem Pathologist Commnt No 01/06/21 04:58 PT 13.3 Sec. (12.2-14.9) 01/05/21 17:57 INR 0.95 (0.87-1.13) 01/05/21 17:57 APTT 37.1 Sec. (24.2-36.6) H 01/05/21 17:57 Sodium 140 mmol/L (137-145) 01/06/21 04:58 Potassium 3.6 mmol/L (3.6-5.0) 01/06/21 04:58 Chloride 106.1 mmol/L (98-107) 01/06/21 04:58 Carbon Dioxide 26 mmol/L (22-30) 01/06/21 04:58 Anion Gap 12 mmol/L 01/06/21 04:58 BUN 6 mg/dL (9-20) L 01/06/21 04:58 Creatinine 0.8 mg/dL (0.8-1.3) 01/06/21 04:58 Estimated GFR > 60 ml/min 01/06/21 04:58 BUN/Creatinine Ratio 8 % 01/06/21 04:58 Glucose 90 mg/dL (75-100) 01/06/21 04:58 Calcium 7.6 mg/dL (8.4-10.2) L 01/06/21 04:58 Total Bilirubin 0.20 mg/dL (0.1-1.2) 01/06/21 04:58 AST 180 units/L (5-40) H 01/06/21 04:58 ALT 90 units/L (7-56) H 01/06/21 04:58 Alkaline Phosphatase 92 units/L (35-129) 01/06/21 04:58 Troponin T < 0.010 ng/mL (0.00-0.029) 01/05/21 20:56 Total Protein 5.8 g/dL (6.3-8.2) L 01/06/21 04:58 Albumin 2.8 g/dL (3.9-5) L 01/06/21 04:58 Albumin/Globulin Ratio 0.9 % 01/06/21 04:58 Lipase 162 units/L (13-60) H 01/05/21 17:19 Urine Color Yellow (Yellow) 01/06/21 Unknown Urine Turbidity Clear (Clear) 01/06/21 Unknown Urine pH 7.0 (5.0-7.0) 01/06/21 Unknown Ur Specific [place] 1.030 (1.003-1.030) 01/06/21 Unknown Urine Protein 30 mg/dl mg/dL (Negative) 01/06/21 Unknown Urine Glucose (UA) Neg mg/dL (Negative) 01/06/21 Unknown Urine Ketones Neg mg/dL (Negative) 01/06/21 Unknown Urine Blood Mod (Negative) 01/06/21 Unknown Urine Nitrite Neg (Negative) 01/06/21 Unknown Urine Bilirubin Neg (Negative) 01/06/21 Unknown Urine Urobilinogen < 2.0 mg/dL (<2.0) 01/06/21 Unknown Ur Leukocyte Esterase Neg (Negative) 01/06/21 Unknown Urine WBC (Auto) 7.0 /HPF (0.0-6.0) H 01/06/21 Unknown Urine RBC (Auto) 4.0 /HPF (0.0-6.0) 01/06/21 Unknown U Epithel Cells (Auto) < 1.0 /HPF (0-13.0) 01/06/21 Unknown Urine Mucus Few /HPF 01/06/21 Unknown Blood Type B POSITIVE 01/05/21 17:57 Antibody Screen Negative 01/05/21 17:57 Microbiology: Microbiology 01/05/21 23:27 Peripheral/Venous Blood Culture - Preliminary Culture in Progress 01/05/21 23:35 Peripheral/Venous Blood Culture - Preliminary Culture in Progress Active Medications - Current Medications Current Medications: Generic Name Dose Route Start Last Admin Trade Name Freq PRN Reason Stop Dose Admin Acetaminophen 650 mg 01/05/21 22:17 Acetaminophen 325 Mg Tab PO Q4H PRN Pain MILD(1-3)/Fever >100.5/STEPHENS Famotidine 20 mg 01/05/21 23:00 01/06/21 11:35 Famotidine 20 Mg/2 Ml Inj IV 20 mg BID YANELIS Administration Levofloxacin 500 mg 01/06/21 12:00 Levofloxacin 500 Mg Tab PO Q24HR [facility] Protocol Morphine Sulfate 2 mg 01/05/21 22:16 01/06/21 11:35 Morphine 2 Mg/1 Ml Inj IV 2 mg Q4H PRN Administration Pain, Moderate (4-6) Ondansetron HCl 4 mg 01/05/21 22:17 Ondansetron 4 Mg/2 Ml Inj IV Q8H PRN Nausea And Vomiting Oxycodone/Acetaminophen 1 tab 01/05/21 22:16 01/06/21 11:35 Oxycodone /Acetaminophen 5-325mg Tab PO 1 tab Q6H PRN Administration Pain, Moderate (4-6) Sodium Chloride 10 ml 01/06/21 10:00 01/06/21 11:35 Sodium Chloride 0.9% 10 Ml Flush Syringe IV 10 ml BID YANELIS Administration Sodium Chloride 10 ml 01/05/21 22:17 Sodium Chloride 0.9% 10 Ml Flush Syringe IV PRN PRN LINE FLUSH
[2021-01-06] MEDS: levoFLOXacin 500 MG TAB PO SCH (14:45)
--- NOTE | 2021-01-06 17:51 | Consultation ---
History of Present Illness Consult date: 01/06/21 Reason for consult: abdominal pain - History of present illness History of present illness: General surgery called to see a 45-year-old male who presented with abdominal pain. Patient has a history of appendectomy 2 weeks ago and per previous documentation had Natacyn abdominal pain with nausea and vomiting. Patient is CT scan with no acute findings. When I went to examine the patient patient denies having any abdominal pain other than coming to the hospital because his kaya were hurting. He denies any nausea vomiting or residual abdominal pain. I asked the patient if he knew why his appendectomy was not done laparo scopically which is standard first-line therapy for appendicitis, he said he did not know why his appendectomy was done via an open vertical midline infraumbilical laparotomy. Past History Past Medical History: other (Appendicitis, asthma, and anxiety, HIV) Past Surgical History: Other (Appendectomy) Social history: Lives alone Family history: no significant family history Medications and Allergies Allergies Allergy/AdvReac Type Severity Reaction Status Date / Time Penicillins Allergy Angioedema Verified 01/03/16 16:56 Active Meds: Active Medications Acetaminophen (Acetaminophen 325 Mg Tab) 650 mg PO Q4H PRN PRN Reason: Pain MILD(1-3)/Fever >100.5/STEPHENS Famotidine (Famotidine 20 Mg/2 Ml Inj) 20 mg IV BID [facility] Last Admin: 01/06/21 11:35 Dose: 20 mg Documented by: Levofloxacin (Levofloxacin 500 Mg Tab) 500 mg PO Q24HR [facility]; Protocol Last Admin: 01/06/21 14:45 Dose: 500 mg Documented by: Morphine Sulfate (Morphine 2 Mg/1 Ml Inj) 2 mg IV Q4H PRN PRN Reason: Pain, Moderate (4-6) Last Admin: 01/06/21 11:35 Dose: 2 mg Documented by: Ondansetron HCl (Ondansetron 4 Mg/2 Ml Inj) 4 mg IV Q8H PRN PRN Reason: Nausea And Vomiting Oxycodone/Acetaminophen (Oxycodone /Acetaminophen 5-325mg Tab) 1 tab PO Q6H PRN PRN Reason: Pain, Moderate (4-6) Last Admin: 01/06/21 11:35 Dose: 1 tab Documented by: Quetiapine Fumarate (Quetiapine 25 Mg Tab) 50 mg PO QHS [facility] Sertraline HCl (Sertraline 50 Mg Tab) 50 mg PO QDAY [facility] Sodium Chloride (Sodium Chloride 0.9% 10 Ml Flush Syringe) 10 ml IV BID YANELIS Last Admin: 01/06/21 11:35 Dose: 10 ml Documented by: Sodium Chloride (Sodium Chloride 0.9% 10 Ml Flush Syringe) 10 ml IV PRN PRN PRN Reason: LINE FLUSH Review of Systems All systems: negative - Constitutional no poor appetite - Gastrointestinal other (Pain at staple line on abdomin) - Integumentary rash, dryness Exam Vital Signs Temp Pulse Resp BP Pulse Ox 98.8 F 92 H 20 131/72 96 01/05/21 10:42 01/05/21 10:42 01/05/21 10:42 01/05/21 10:42 01/05/21 10:42 - General physical appearance Positive: no distress, no pain, chronically ill - Respiratory Positive: normal expansion, normal respiratory effort - Cardiovascular Heart Sounds: Present: S1 & S2 - Extremities Extremities: no ischemia - Abdomen Abdomen: Present: soft, other (well healed infra-umbilical scar with kaya intact). Absent: tender - Neurologic Neurologic: alert and oriented to time, place and person, CN II-XII intact - Psychiatric Psychiatric: appropriate mood/affect, cooperative Results - Labs 01/06/21 04:58 01/06/21 04:58 Abnormal lab results 01/05/21 01/05/21 01/05/21 Range/Units 17:19 17:19 17:57 WBC (4.5-11.0) K/mm3 RBC (3.65-5.03) M/mm3 Hgb (11.8-15.2) gm/dl Hct (35.5-45.6) % MCV (84-94) fl MCH (28-32) pg RDW (13.2-15.2) % Plt Count (140-440) K/mm3 Monocytes % (Manual) 12.0 H (0.0-7.3) % Eosinophils % (Manual) (0.0-4.3) % Nucleated RBC % (0.0-0.9) % Seg Neutrophils # Man 1.0 L (1.8-7.7) K/mm3 Lymphocytes # (Manual) 0.4 L (1.2-5.4) K/mm3 APTT 37.1 H (24.2-36.6) Sec. Potassium 3.3 L (3.6-5.0) mmol/L BUN 6 L (9-20) mg/dL Calcium 8.0 L (8.4-10.2) mg/dL AST 202 H (5-40) units/L ALT 100 H (7-56) units/L Total Protein (6.3-8.2) g/dL Albumin 3.1 L (3.9-5) g/dL Lipase 162 H (13-60) units/L Urine WBC (Auto) (0.0-6.0) /HPF 01/06/21 01/06/21 01/06/21 Range/Units 04:58 04:58 Unknown WBC 1.6 L* (4.5-11.0) K/mm3 RBC 2.73 L (3.65-5.03) M/mm3 Hgb 7.5 L (11.8-15.2) gm/dl Hct 22.5 L (35.5-45.6) % MCV 82 L (84-94) fl MCH 27 L (28-32) pg RDW 19.2 H (13.2-15.2) % Plt Count 90 L (140-440) K/mm3 Monocytes % (Manual) (0.0-7.3) % Eosinophils % (Manual) 13.0 H (0.0-4.3) % Nucleated RBC % 2.0 H (0.0-0.9) % Seg Neutrophils # Man 0.9 L (1.8-7.7) K/mm3 Lymphocytes # (Manual) 0.4 L (1.2-5.4) K/mm3 APTT (24.2-36.6) Sec. Potassium (3.6-5.0) mmol/L BUN 6 L (9-20) mg/dL Calcium 7.6 L (8.4-10.2) mg/dL AST 180 H (5-40) units/L ALT 90 H (7-56) units/L Total Protein 5.8 L (6.3-8.2) g/dL Albumin 2.8 L (3.9-5) g/dL Lipase (13-60) units/L Urine WBC (Auto) 7.0 H (0.0-6.0) /HPF Diabetes panel 01/05/21 01/06/21 Range/Units 17:19 04:58 Sodium 141 140 (137-145) mmol/L Potassium 3.3 L 3.6 (3.6-5.0) mmol/L Chloride 105.1 106.1 (98-107) mmol/L Carbon Dioxide 27 26 (22-30) mmol/L BUN 6 L 6 L (9-20) mg/dL Creatinine 0.9 0.8 (0.8-1.3) mg/dL Glucose 86 90 (75-100) mg/dL Calcium 8.0 L 7.6 L (8.4-10.2) mg/dL AST 202 H 180 H (5-40) units/L ALT 100 H 90 H (7-56) units/L Alkaline Phosphatase 98 92 (35-129) units/L Total Protein 6.6 5.8 L (6.3-8.2) g/dL Albumin 3.1 L 2.8 L (3.9-5) g/dL Calcium panel 01/05/21 01/06/21 Range/Units 17:19 04:58 Calcium 8.0 L 7.6 L (8.4-10.2) mg/dL Albumin 3.1 L 2.8 L (3.9-5) g/dL Pituitary panel 01/05/21 01/06/21 Range/Units 17:19 04:58 Sodium 141 140 (137-145) mmol/L Potassium 3.3 L 3.6 (3.6-5.0) mmol/L Chloride 105.1 106.1 (98-107) mmol/L Carbon Dioxide 27 26 (22-30) mmol/L BUN 6 L 6 L (9-20) mg/dL Creatinine 0.9 0.8 (0.8-1.3) mg/dL Glucose 86 90 (75-100) mg/dL Calcium 8.0 L 7.6 L (8.4-10.2) mg/dL Adrenal panel 01/05/21 01/06/21 Range/Units 17:19 04:58 Sodium 141 140 (137-145) mmol/L Potassium 3.3 L 3.6 (3.6-5.0) mmol/L Chloride 105.1 106.1 (98-107) mmol/L Carbon Dioxide 27 26 (22-30) mmol/L BUN 6 L 6 L (9-20) mg/dL Creatinine 0.9 0.8 (0.8-1.3) mg/dL Glucose 86 90 (75-100) mg/dL Calcium 8.0 L 7.6 L (8.4-10.2) mg/dL Total Bilirubin 0.30 0.20 (0.1-1.2) mg/dL AST 202 H 180 H (5-40) units/L ALT 100 H 90 H (7-56) units/L Alkaline Phosphatase 98 92 (35-129) units/L Total Protein 6.6 5.8 L (6.3-8.2) g/dL Albumin 3.1 L 2.8 L (3.9-5) g/dL - Imaging CT scan - abdomen: report reviewed, image reviewed CT scan - pelvis: report reviewed, image reviewed Assessment and Plan 45-year-old male with abdominal pain attributed to his kaya from appendectomy [address] scan for acute abdominal findings. Patient is afebrile and stable. Kaya were removed without difficulty. No further indication for general surgery intervention. Leukopenia, and positive HIV serology to be managed by hematology. We will sign off.
[2021-01-06] MEDS ORDERED: QUEtiapine 25 MG TAB PO SCH (22:00)
[2021-01-07] MEDS: oxyCODONE /ACETAMINOPHEN 5-325MG TAB PO PRN (00:04)
[2021-01-07] MEDS: FAMOTIDINE 20 MG/2 ML INJ IV SCH ×2 (00:05→10:28)
[2021-01-07] MEDS: MORPHINE 2 MG/1 ML INJ IV PRN (02:58)
[2021-01-07] MEDS ORDERED: ALPRAZolam 0.25 MG TAB PO ONE (04:57)
--- NOTE | 2021-01-07 07:55 | Discharge Summary ---
Providers - Providers Date of Admission: 01/05/21 22:19 Attending physician: HOMERO JOHNSON MD 01/05/21 22:11 Consult to Physician [CONS] Stat Comment: Consulting Provider: JAMES JACKSON Physician Instructions: Reason For Exam: neutropenia and thrombocytopenia 01/06/21 14:44 Consult to Physician [CONS] Routine Comment: Consulting Provider: SISSY NULL Physician Instructions: Reason For Exam: abdominal pain, recept appendectomy Primary care physician: INSOLE BUFFER Hospitalization Reason for admission: Abdominal pain Condition: Stable Hospital course: This is a 45-year-old male that presented to ED with chief complaint of abdominal pain and nausea and vomiting. Patient stated has history of appendectomy 2 weeks ago. Patient describes abdominal pain as cramping and aching with level of 9/10 diffuse. Patient denies chest pain, short of breath, fever, hemoptysis, blood in stool, chills, headache, stiff neck, numbness or tingling. Patient denies any diarrhea or constipation. Patient denies tobacco use, alcohol use and illicit drug use. Patient said he lives in [place]. He is visiting nephew and started having abdominal pain, then he came to the hospital. Patient said he will be going back to [facility] when discharged. Patient said he lives alone but may not be able to live by himself anymore b ecause of his illness. Reviewed lab medication record, and vital signs. Patient has no all blood counts including WBC and platelet level. Heme oncologist has been consulted. CT of the abdomen done with no acute finding. CT of the abdomen pelvis was negative for acute pathology except for post surgical changes.. 01/06: Patient still with surgical sutures. Surgery consulted to assist with rn pain management has diffuse tenderness. Anode Worker assisted with pancytopenia. Continue pain control. Have requested records from his facility outside to further evaluate and help with management. 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 Will give xanax and also Robaxin on discharge. X-ray of the face done was without any acute pathology of also recommended an ENT evaluation outpatient (1) Abdominal pain SECONDRY TO REtained surgical suture Current Visit: Yes Status: Acute Plan to address problem: CT of the abdomen done showed no acute process As needed pain management (2) Nausea & vomiting Current Visit: Yes Status: Acute Qualifiers: Vomiting type: unspecified Vomiting Intractability: non-intractable Qualified Code(s): R11.2 - Nausea with vomiting, unspecified Plan to address problem: Antiemetic as needed (3) Neutropenia Current Visit: Yes Status: Acute Qualifiers: Neutropenia type: unspecified Qualified Code(s): D70.9 - Neutropenia, unspecified Plan to address problem: Unknown causeinfection? Patient denies Covid infection exposurehe said he was tested and it was negative We will consult heme oncologist Dr. Jackson (4) Thrombocytopenia Current Visit: Yes Status: Acute Plan to address problem: Questionable causeviral infection/bone marrow disease Monitor platelet level Bleeding precautionheme oncologist has been consulted follow-up with plan of care (5) Elevated liver enzymes Current Visit: Yes Status: Acute Plan to address problem: Questionable causepatient denies alcohol use/viral infection Monitor liver enzymes HIV: Counselling provided to the patient as he claims this is a new diagnosis Lockjaw- anxiety-resolved with Xanax. Disposition: 01 HOME / SELF CARE / HOMELESS Final Discharge Diagnosis (Prints w/discharge instructions): Abdominal pain Time spent for discharge: 35 mins Core Measure Documentation - Palliative Care Palliative Care/ Comfort Measures: Not Applicable - Core Measures Any of the following diagnoses?: none Exam - Physical Exam Narrative exam: General appearance: Present: mild distress, other (Fragile appearing patient) - EENT Eyes: Absent: exopthalmos ENT: hearing intact, clear oral mucosa - Neck Neck: Present: supple, normal ROM - Respiratory Respiratory effort: normal Respiratory: bilateral: CTA - Cardiovascular Heart Sounds: Present: S1 & S2. Absent: rub, click - Extremities Extremities: pulses symmetrical, No edema Peripheral Pulses: within normal limits - Abdominal General gastrointestinal: Present: soft, tender, non-distended, normal bowel sounds, other (Abdominal incision from appendectomy tender on palpation, no drainage) Male genitourinary: Present: normal - Integumentary Integumentary: Present: clear, warm, dry - Musculoskeletal Musculoskeletal: gait normal, strength equal bilaterally - Psychiatric Psychiatric: appropriate mood/affect, intact judgment & insight, cooperative - Neurologic Neurologic: CNII-XII intact, moves all extremities - Allied Health Allied health notes reviewed: nursing - Constitutional Vitals: Temp Pulse Resp BP Pulse Ox 98 F 84 16 120/75 100 01/06/21 07:49 01/07/21 05:00 01/07/21 05:00 01/07/21 05:00 01/07/21 05:00 Plan Activity: advance as tolerated, fall precautions Diet: low fat Special Instructions: record daily weights, record daily BP diary Plan of Treatment: Must follow with primary surgeon Must follow with Infectious disease for discussed new diagnosis Follow up with: PRIMARY CAREMD [Primary Care Provider] - 3-5 Days LORENZA DOVE MD [Staff Physician] - 7 Days Prescriptions: levoFLOXacin [Levaquin TAB] 500 mg PO Q24HR #5 tablet oxyCODONE /ACETAMINOPHEN [Percocet 5/325 mg] 1 tab PO Q6H PRN #14 tablet PRN Reason: Pain, Moderate (4-6) methOCARBAMOL [Robaxin TAB] 500 mg PO Q6H PRN #14 tablet PRN Reason: Spasms
[2021-01-07] MEDS ORDERED: ALPRAZolam 0.5 MG TAB PO NR (08:00)
--- NOTE | 2021-01-07 08:46 | XRay Report ---
FACIAL BONES HISTORY: Lock jaw. COMPARISON: None. TECHNIQUE: 4 view(s) of the facial bones obtained. FINDINGS: Paranasal sinuses:No significant abnormality. Bones:No significant abnormality. Soft tissues:No significant abnormality. Additional findings: The TMJs are poorly imaged on this exam but no gross abnormality is detected. If further evaluation is needed consider CT or MRI facial bones. IMPRESSION: 1. No significant abnormality.. Signer Name: Benton Sen Jr, MD Signed: 01/07/2021 8:42 AM Workstation Name: [id number]
[2021-01-07] MEDS ORDERED: SERTRALINE 50 MG TAB PO SCH (10:00)
[2021-01-07] MEDS: levoFLOXacin 500 MG TAB PO SCH (10:16)
[2021-01-07 15:07] VITALS: BP 107/62
== END 2021-01-07 15:05 | disposition home or self-care (01) ==
LOC: ED 10:18 → 3A 22:19 → 4A 01-07 07:49
PROVIDERS: ADMIT Internal Medicine Geriatric Medicine; ATTEND Internal Medicine
DX: D69.6 Thrombocytopenia, unspecified (principal); R10.9 Unspecified abdominal pain; R11.2 Nausea with vomiting, unspecified; D70.9 Neutropenia, unspecified; R74.01 Elevation of levels of liver transaminase levels; F41.9 Anxiety disorder, unspecified; J45.909 Unspecified asthma, uncomplicated; Z79.899 Other long term (current) drug therapy; Z90.49 Acquired absence of other specified parts of digestive tract; Z98.890 Other specified postprocedural states
CPT/HCPCS: 36415; 70150; 71046; 74177; 80053; 81001; 82024; 83690; 84484; 85025; 85610; 85730; 86850; 86900; 86901; 87040; 87806; 93005; 96361; 96365; 96366; 96367; 96375; 96376; 99285; G0378; J1956; J2270; J2405; J3370; J7030; Q9967; 85007

== ENCOUNTER 2021-01-07 17:17 | Emergency (ER) | payer SELFPAY ==
[2021-01-07] MEDS ORDERED: ONDANSETRON 4 MG ODT TAB PO ONE (17:36)
[2021-01-07] MEDS ORDERED: HYOSCYAMINE SUBL 0.125 MG TAB SL ONE (17:36)
--- NOTE | 2021-01-07 17:40 | Emergency Department Report ---
ED General Adult HPI - General Chief complaint: Abdominal Pain Stated complaint: HOMELESS/WEAKNESS Time Seen by Provider: 01/07/21 17:28 - History of Present Illness Initial comments: Patient presents with multiple issues. He was actually just discharged, had been gone for 5 to 10 minutes, and then called an ambulance to transport him back here. He states that he been here for several days because of abdominal pain. Patient states that he has not slept. He needs a place to sleep. He does report vomiting, but states that he had been vomiting even before he left the hospital. He complains of abdominal pain and states that he was having pain even before he left the hospital. Patient states that he is tried liquid medicine and just cannot keep it down. He believes that he needs a place to rest and stretch out for several more days. There is no chest pain. Has no hematemesis or coffee-ground emesis. - Related Data Previous Rx's Medication Instructions Recorded Last Taken Type Hyoscyamine Subl [Levsin Sl 0.125 0.125 mg SL ONCE #20 tablet 01/07/21 Unknown Rx TAB] Ondansetron [Zofran ODT TAB] 4 mg PO ONCE #20 tab.rapdis 01/07/21 Unknown Rx QUEtiapine [SEROquel] 50 mg PO QHS tablet 01/07/21 Unknown Rx Sertraline [Zoloft] 50 mg PO QDAY tablet 01/07/21 Unknown Rx levoFLOXacin [Levaquin TAB] 500 mg PO Q24HR #5 tablet 01/07/21 Unknown Rx methOCARBAMOL [Robaxin TAB] 500 mg PO Q6H PRN #14 tablet 01/07/21 Unknown Rx oxyCODONE /ACETAMINOPHEN [Percocet 1 tab PO Q6H PRN #14 tablet 01/07/21 Unknown Rx 5/325 mg] Allergies Allergy/AdvReac Type Severity Reaction Status Date / Time Penicillins Allergy Angioedema Verified 01/03/16 16:56 ED Review of Systems ROS: Stated complaint: HOMELESS/WEAKNESS Other details as noted in HPI Comment: All other systems reviewed and negative Constitutional: denies: fever ENT: denies: ear pain Respiratory: denies: cough Cardiovascular: denies: chest pain Endocrine: denies: increased urine Gastrointestinal: as per HPI, abdominal pain, nausea, vomiting Genitourinary: denies: dysuria Musculoskeletal: denies: back pain Skin: denies: rash Neurological: weakness. denies: headache Hematological/Lymphatic: easy bruising ED Past Medical Hx - Past Medical History Hx Psychiatric Treatment: Yes (anxiety) Hx Asthma: Yes Additional medical history: Thrombocytopenia, leukopenia - Surgical History Hx Appendectomy: Yes - Family History Family history: hypertension - Social History Smoking Status: Never Smoker Substance Use Type: None - Medications Home Medications: Home Medications Medication Instructions Recorded Confirmed Last Taken Type Hyoscyamine Subl [Levsin Sl 0.125 0.125 mg SL ONCE #20 tablet 01/07/21 Unknown Rx TAB] Ondansetron [Zofran ODT TAB] 4 mg PO ONCE #20 tab.rapdis 01/07/21 Unknown Rx QUEtiapine [SEROquel] 50 mg PO QHS tablet 01/07/21 Unknown Rx Sertraline [Zoloft] 50 mg PO QDAY tablet 01/07/21 Unknown Rx levoFLOXacin [Levaquin TAB] 500 mg PO Q24HR #5 tablet 01/07/21 Unknown Rx methOCARBAMOL [Robaxin TAB] 500 mg PO Q6H PRN #14 tablet 01/07/21 Unknown Rx oxyCODONE /ACETAMINOPHEN [Percocet 1 tab PO Q6H PRN #14 tablet 01/07/21 Unknown Rx 5/325 mg] ED Physical Exam - General General appearance: alert, in no apparent distress, appears intoxicated - Head Head exam: Present: atraumatic, normocephalic - Eye Eye exam: Present: normal appearance, PERRL. Absent: scleral icterus, conjunctival injection - ENT ENT exam: Present: normal exam, mucous membranes dry - Neck Neck exam: Present: full ROM. Absent: meningismus - Respiratory Respiratory exam: Present: normal lung sounds bilaterally, respiratory distress - Cardiovascular Cardiovascular Exam: Present: regular rate, normal rhythm - GI/Abdominal GI/Abdominal exam: Present: soft, tenderness (Diffuse and mild), normal bowel sounds. Absent: distended, guarding, rebound - Extremities Exam Extremities exam: Absent: pedal edema - Back Exam Back exam: Absent: CVA tenderness (R), CVA tenderness (L) - Neurological Exam Neurological exam: Present: alert, oriented X3 - Psychiatric Psychiatric exam: Present: normal affect, normal mood - Skin Skin exam: Present: warm, dry ED Course - Reevaluation(s) Reevaluation #1: 01/07/21 17:52 Patient was seen as above. Case have been discussed with case management. Patient was given oral medications here and discharged. He had frankly admitted that he was homeless and did not have a place to go. This would not constitute grounds for admission. ED Medical Decision Making - Medical Decision Making Patient presented here with multiple issues and a recent discharge. He does not have peritoneal findings on exam. There is no distention or tympany to suggest bowel obstruction. He reported vomiting but has not been vomiting. He reported pain, but is sleeping and easily arousable. He does not require admission. He certainly does not have any surgical pathology on my exam. I have reviewed his recent discharge. Have been seen by numerous specialist. He had a CT that was unremarkable. I do not believe this requires repetition. On exam, he certainly has no evidence of AAA or peritoneal finding. Critical Care Time: No Critical care attestation.: If time is entered above; I have spent that time in minutes in the direct care of this critically ill patient, excluding procedure time. ED Disposition Clinical Impression: Vomiting, Generalized abdominal pain, Homelessness Disposition: 01 HOME / SELF CARE / HOMELESS Is pt being admited?: No Does the pt Need Aspirin: No Condition: Stable Instructions: Abdominal Pain, Adult, [id number], Nausea and Vomiting, Adult Additional Instructions: Drink plenty of water. Follow-up as directed by the hospitalist and the parcel wrapper yesterday. Have a bland diet. Return for problems. Follow-up with your regular physician and your surgeon. Prescriptions: Hyoscyamine Subl [Levsin Sl 0.125 TAB] 0.125 mg SL ONCE #20 tablet Ondansetron [Zofran ODT TAB] 4 mg PO ONCE #20 tab.vaughn
== END 2021-01-08 17:40 | disposition home or self-care (01) ==
LOC: ED 17:17
DX: R11.10 Vomiting, unspecified (principal); R10.84 Generalized abdominal pain; J45.909 Unspecified asthma, uncomplicated; F41.9 Anxiety disorder, unspecified; Z79.899 Other long term (current) drug therapy; Z88.0 Allergy status to penicillin; Z90.49 Acquired absence of other specified parts of digestive tract; Z59.0 Homelessness
CPT/HCPCS: 99282; Q0162

== ENCOUNTER 2021-01-14 12:00 | Emergency (ER) | payer SELFPAY | END 2021-01-14 17:43 | disposition left against medical advice (07) | LOC: ED 12:00 | DX: R10.9 Unspecified abdominal pain (principal); Z53.21 Procedure and treatment not carried out due to patient leaving prior to being seen by health care provider ==

== ENCOUNTER 2021-01-23 07:43 | Emergency (ER) | payer SELFPAY ==
[2021-01-23 08:40] VITALS: BP 136/79
[2021-01-23] MEDS ORDERED: SODIUM CHLORIDE 0.9% 1000 ML 1,000 ML IV ONE (10:26)
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
[2021-01-23 11:27] LABS: Hematocrit 26.8 % (35.5-45.6); Hemoglobin 8.6 gm/dl (11.8-15.2); Mean Corpuscular HGB Conc 32 % (32-34); Mean Corpuscular Volume 87 fl (84-94); Platelet Count 174 K/mm3 (140-440); Red Blood Count 3.09 M/mm3 (3.65-5.03)
[2021-01-23 11:36] LABS: Red Cell Distribution Width 20.2 % (13.2-15.2)
[2021-01-23 11:48] LABS: Alanine Aminotransferase 26 units/L (7-56); Albumin 3.4 g/dL (3.9-5); BUN/Creatinine Ratio 14; Blood Urea Nitrogen 11 mg/dL (9-20); Calcium 8.7 mg/dL (8.4-10.2); Hemolysis Index 3
[2021-01-23 17:19] LABS: Anisocytosis 1+; Platelet Estimate Consistent w Auto; Tear Drop Cells 2+; Total Cells Counted 100
== END 2021-01-23 16:40 | disposition home or self-care (01) ==
LOC: ED 07:43
DX: S00.03XA Contusion of scalp, initial encounter (principal); R53.1 Weakness; R42 Dizziness and giddiness; Z59.0 Homelessness; J45.909 Unspecified asthma, uncomplicated; F41.9 Anxiety disorder, unspecified; Z88.0 Allergy status to penicillin; Z91.018 Allergy to other foods; Z79.899 Other long term (current) drug therapy; Y04.8XXA Assault by other bodily force, initial encounter; Y93.89 Activity, other specified; Y92.89 Other specified places as the place of occurrence of the external cause; Y99.8 Other external cause status
CPT/HCPCS: 36415; 80053; 85007; 85025; 99283; J7030

== ENCOUNTER 2021-01-31 11:08 | Emergency (ER) | payer SELFPAY ==
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
[2021-01-31 13:28] LABS: Hematocrit 24.7 % (35.5-45.6); Hemoglobin 8.5 gm/dl (11.8-15.2); Mean Corpuscular HGB Conc 35 % (32-34); Mean Corpuscular Volume 82 fl (84-94); Platelet Count 166 K/mm3 (140-440); Red Blood Count 2.99 M/mm3 (3.65-5.03)
[2021-01-31 13:50] LABS: BUN/Creatinine Ratio 9; Blood Urea Nitrogen 10 mg/dL (9-20); Calcium 8.7 mg/dL (8.4-10.2); Hemolysis Index 9
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
[2021-01-31 16:55] LABS: Anisocytosis 1+; Hypochromasia 1+; Ovalocytes 1+; Platelet Estimate Consistent w Auto; Total Cells Counted 100
[2021-01-31] MEDS ORDERED: SODIUM CHLORIDE 0.9% IRR 500 ML BOTTLE IR ONE (17:49)
[2021-01-31 18:02] VITALS: BP 114/66
== END 2021-01-31 15:45 | disposition home or self-care (01) ==
LOC: ED 11:08
DX: S80.812A Abrasion, left lower leg, initial encounter (principal); S80.811A Abrasion, right lower leg, initial encounter; F41.9 Anxiety disorder, unspecified; Z59.0 Homelessness; Z21 Asymptomatic human immunodeficiency virus [HIV] infection status; J45.909 Unspecified asthma, uncomplicated; Z98.890 Other specified postprocedural states; Z79.899 Other long term (current) drug therapy; Z88.0 Allergy status to penicillin; Z91.018 Allergy to other foods; X58.XXXA Exposure to other specified factors, initial encounter; Y93.89 Activity, other specified; Y92.89 Other specified places as the place of occurrence of the external cause; Y99.8 Other external cause status
CPT/HCPCS: 36415; 70450; 72072; 72100; 80048; 80320; 85007; 85025; 99284; G0480

== ENCOUNTER 2021-02-01 09:45 | Inpatient (IN) | payer OTHER ==
--- NOTE | 2021-02-01 11:57 | Consultation ---
History of Present Illness - Reason for Consult Consult date: 02/01/21 Reason for consult: MHE - History of Present Psychiatric Illness Juan F Ca is a 45y/o male patient I evaluated today. The patient is resting but arouses easily. He is covered in skin abrasions. He says he came to the hospital for a "bunch of different stuff." The patient says "my legs hurt." He says "I scratched them because I have anxiety real bad." The patient states that his "is cold and doesn't feel well." He says "I can't walk." The patient denies SI/HI at present. He says "I was yesterday and the day before but not now." He also denies hallucinations of any kind. The patient says "I feel sick and my legs hurt. I don't know why I'm so cold." The patient says he's homeless because his took everything and he couldn't pay for what he had. PAST PSYCHIATRIC HISTORY Diagnoses: anxiety Suicide attempts or Self-harm behavior: Denies Prior psychiatric hospitalizations: Denies Substance Abuse history: denies Previous psychiatric medications tried: Denied Outpatient treatment: Denied SOCIAL HISTORY Marital Status: Living Arrangements: homeless Employment Status: Unemployed Access to guns/weapons: Denied Education: History of Abuse: Denied Legal History: None reported REVIEW OF SYSTEMS Constitutional: Negative for weight loss ENT: Negative for stridor Respiratory: Negative for cough or hemoptysis All other systems reviewed and are negative MENTAL STATUS EXAMINATION General Appearance and Behavior: Age appropriate, dressed appropriately, calm and cooperative Cooperation: engaging Psychomotor Behavior: psychomotor normal Mood: Anxious Affect and affective range: Congruent with stated mood Thought Process: goal oriented Thought Content: None Speech: Normal volume, Regular rate and rhythm, Suicidal Ideation: Denies Homicidal Ideation: denies Hallucinations: Denies Delusions: None elicited Impulse Control: Unimpaired Insight and Judgment: limited insight and judgment, Memory: Normal Attention: attentive Orientation: Alert, oriented Assessment and Plan (1) Generalized Anxiety Disorder Treatment plan Vistaril 25mg po BID, give first dose prior to discharge Continue previous prescribed meds Risks, benefits and alternatives of medications discussed with the patient, questions answered and consent obtained from patient. PSYCHOTHERAPY: Supportive psychotherapy provided MEDICAL: Per primary team DELIRIUM PRECAUTIONS: Please re-orient patient frequently, keep lights on during the day, and minimize benzodiazepines and opiates as these medications could worsen patient's confusion. 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 Do not Recommend acute inpatient psychiatric hospitalization. The patient may discharge once medically clear. The patient is to follow up with outpatient psych in 7 to 14 days upon discharge The security assessor to give the patient all necessary outpatient resources. Please give the patient a transportation pass if needed. Will sign off. Thank you for the consult. Please contact with any questions and/or concerns. Case staffed with Dr. Norwood Medications and Allergies Allergies Allergy/AdvReac Type Severity Reaction Status Date / Time Penicillins Allergy Angioedema Verified 01/14/21 12:05 cinnamon AdvReac Hives Verified 01/23/21 08:41 Home Medications Medication Instructions Recorded Confirmed Last Taken Type Hyoscyamine Subl [Levsin Sl 0.125 0.125 mg SL ONCE #20 tablet 01/07/21 Unknown Rx TAB] Ondansetron [Zofran ODT TAB] 4 mg PO ONCE #20 tab.rapdis 01/07/21 Unknown Rx QUEtiapine [SEROquel] 50 mg PO QHS tablet 01/07/21 Unknown Rx Sertraline [Zoloft] 50 mg PO QDAY tablet 01/07/21 Unknown Rx levoFLOXacin [Levaquin TAB] 500 mg PO Q24HR #5 tablet 01/07/21 Unknown Rx methOCARBAMOL [Robaxin TAB] 500 mg PO Q6H PRN #14 tablet 01/07/21 Unknown Rx oxyCODONE /ACETAMINOPHEN [Percocet 1 tab PO Q6H PRN #14 tablet 01/07/21 Unknown Rx 5/325 mg] Bacitracin Zinc/Polymyxin B 1 applicatio TP DAILY #1 tube 01/31/21 Unknown Rx [Polysporin Ointment] Non-Adherent Bandage [Surgical 1 each TP DAILY #10 bandage 01/31/21 Unknown Rx Dressing] hydrOXYzine PAMOATE [Vistaril] 25 mg PO BID PRN #60 capsule 02/01/21 Unknown Rx Results All other labs normal.
[2021-02-01] MEDS ORDERED: hydrOXYzine PAMOATE 25 MG CAP PO ONE (11:58)
--- NOTE | 2021-02-01 17:06 | Emergency Department Report ---
HPI - General Chief Complaint: Psych Time Seen by Provider: 02/01/21 16:07 - HPI HPI: 45-year-old male with recently diagnosed HIV/AIDS who presents with suicidal ideation as well as requesting dressing changes to his bilateral lower extremities. The patient recently became homeless and has been struggling to find food and retirement. He states that he feels extremely depressed and wants to end his life. He also says he has voices in his head telling him to kill himself which started today. He says he has been suffering from mid lower back pain for a few weeks. He feels itchy and has been scratching himself causing significant excoriations throughout his body. He says he has whole body pain but otherwise denies any significant fever/chills, headache, vision changes, neck pain, chest pain, shortness of breath, cough, abdominal pain, nausea/v omiting, focal weakness, sensory changes, or any other complaints. ED Past Medical Hx - Past Medical History Hx Psychiatric Treatment: Yes (anxiety) Hx Asthma: Yes Hx HIV: Yes Additional medical history: HIV/AIDS - Surgical History Hx Appendectomy: Yes - Social History Smoking Status: Never Smoker Substance Use Type: None - Medications Home Medications: Home Medications Medication Instructions Recorded Confirmed Last Taken Type Hyoscyamine Subl [Levsin Sl 0.125 0.125 mg SL ONCE #20 tablet 01/07/21 Unknown Rx TAB] Ondansetron [Zofran ODT TAB] 4 mg PO ONCE #20 tab.rapdis 01/07/21 Unknown Rx QUEtiapine [SEROquel] 50 mg PO QHS tablet 01/07/21 Unknown Rx Sertraline [Zoloft] 50 mg PO QDAY tablet 01/07/21 Unknown Rx levoFLOXacin [Levaquin TAB] 500 mg PO Q24HR #5 tablet 01/07/21 Unknown Rx methOCARBAMOL [Robaxin TAB] 500 mg PO Q6H PRN #14 tablet 01/07/21 Unknown Rx oxyCODONE /ACETAMINOPHEN [Percocet 1 tab PO Q6H PRN #14 tablet 01/07/21 Unknown Rx 5/325 mg] Bacitracin Zinc/Polymyxin B 1 applicatio TP DAILY #1 tube 01/31/21 Unknown Rx [Polysporin Ointment] Non-Adherent Bandage [Surgical 1 each TP DAILY #10 bandage 01/31/21 Unknown Rx Dressing] hydrOXYzine PAMOATE [Vistaril] 25 mg PO BID PRN #60 capsule 02/01/21 Unknown Rx ED Review of Systems ROS: Stated complaint: BILATERAL LEG PAIN Other details as noted in HPI Constitutional: other (Whole body pain). denies: chills, fever Eyes: denies: eye pain, vision change ENT: denies: throat pain, congestion Respiratory: denies: cough, shortness of breath Cardiovascular: denies: chest pain, palpitations Gastrointestinal: denies: abdominal pain, nausea, vomiting Genitourinary: denies: dysuria, frequency Musculoskeletal: back pain. denies: joint swelling Skin: lesions, pruritus Neurological: denies: headache, weakness, numbness Psychiatric: depression, auditory hallucinations, suicidal thoughts. denies: visual hallucinations, homicidal thoughts Physical Exam - Physical Exam Physical Exam: GENERAL: Very thin and frail appearing male who appears older than stated age. In no acute distress. HEAD: Normocephalic. No obvious signs of trauma. ENT: Moist mucous membranes. EYES: Extraocular movements are intact. Pupils are equal round and reactive to light bilaterally NECK: Supple. Full ROM is intact. Trachea is midline. LUNGS: Nonlabored breathing. Equal chest rise bilaterally. Clear to auscultation bilaterally. CARDIOVASCULAR: Regular rate and rhythm. No murmurs or rubs. VASCULAR: Cap refill < 2 seconds ABDOMEN: Abdomen is soft and nondistended. There is no significant tenderness, guarding or rebound. SKIN: Skin is dry. There are scattered excoriations throughout the patient's body with areas of hypopigmentation. The bilateral lower extremities are wrapped in gauze and the patient refuses to allow me to examine those areas. NEURO: Patient is awake, alert, and oriented. 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 No focal deficits. Normal motor and sensory exam throughout. Normal speech. MUSCULOSKELETAL: No obvious deformities. Has tenderness throughout bilateral upper and lower extremities as well as bilateral flanks and the lower back. Normal ROM. BACK/SPINE: There is tenderness of the entire lower back which is not restricted to the midline but involves the paraspinous and more lateral regions of the lower back as well. ED Medical Decision Making - Lab Data Result diagrams: 02/01/21 20:54 02/01/21 20:54 Lab Results 02/01/21 02/01/21 02/01/21 Range/Units 17:21 17:21 17:21 WBC 3.1 L (4.5-11.0) K/mm3 RBC 2.69 L (3.65-5.03) M/mm3 Hgb 7.7 L (11.8-15.2) gm/dl Hct 23.0 L (35.5-45.6) % MCV 85 (84-94) fl MCH 29 (28-32) pg MCHC 33 (32-34) % RDW 17.3 H (13.2-15.2) % Plt Count 185 (140-440) K/mm3 [place] % (Auto) Technical Buyer Sodium 137 (137-145) mmol/L Potassium 3.4 L (3.6-5.0) mmol/L Chloride 100.5 (98-107) mmol/L Carbon Dioxide 25 (22-30) mmol/L Anion Gap 15 mmol/L BUN 12 (9-20) mg/dL Creatinine 1.3 (0.8-1.3) mg/dL Estimated GFR > 60 ml/min BUN/Creatinine Ratio 9 % Glucose 105 H (75-100) mg/dL Calcium 7.8 L (8.4-10.2) mg/dL Salicylates < 0.3 L (2.8-20.0) mg/dL Acetaminophen (10.0-30.0) ug/mL 02/01/21 Range/Units 17:21 WBC (4.5-11.0) K/mm3 RBC (3.65-5.03) M/mm3 Hgb (11.8-15.2) gm/dl Hct (35.5-45.6) % MCV (84-94) fl MCH (28-32) pg MCHC (32-34) % RDW (13.2-15.2) % Plt Count (140-440) K/mm3 [place] % (Auto) Sodium (137-145) mmol/L Potassium (3.6-5.0) mmol/L Chloride (98-107) mmol/L Carbon Dioxide (22-30) mmol/L Anion Gap mmol/L BUN (9-20) mg/dL Creatinine (0.8-1.3) mg/dL Estimated GFR ml/min BUN/Creatinine Ratio % Glucose (75-100) mg/dL Calcium (8.4-10.2) mg/dL Salicylates (2.8-20.0) mg/dL Acetaminophen 5.0 L (10.0-30.0) ug/mL - Medical Decision Making 45-year-old male with recently diagnosed HIV/AIDS and frequent visits to the ER presents with suicidal ideation. He states that he wants to end his life and that he has command auditory hallucinations telling him to kill himself. When asked about a plan he says he would walk out into traffic. The patient continues to report whole body pain most significantly in the bilateral lower extremities where he has significant excoriations. He is alert and oriented x4. He has a nonfocal neurologic exam. Lungs are clear to auscultation. The patient was seen in our emergency department yesterday by another provider and had a significant work-up including CT of the head as well as x-rays of the lumbar and thoracic spine. The patient was seen by the mental health/psychiatry team prior to me becoming aware of his presence and they have written a note saying that he is cleared for discharge from a psychiatric perspective. However, in their note they state that the patient denies SI. However when I interviewed the patient he has active suicidal ideation with command auditory hallucinations and a plan. I have signed a 1013 order and spoken to the mental health/psychiatry team and requested repeat evaluation tomorrow given what he told me. We will order medical clearance labs. Labs reveal significant leukopenia which is unchanged from yesterday and is most likely related to his HIV/AIDS. He also has significant anemia with hemoglobin of 7.8 but he has chronically low hemoglobin. There are no significant electrolyte abnormalities and he has normal kidney function. He is cleared for psychiatric evaluation and placement. Several hours later after the patient was cleared, the nurse informed me that he spiked a fever of 100.3. I also see that his heart rate has been persistently elevated in the low 100s. Given this new development, sepsis order set was initiated and the patient was moved to a medical bed in the ER. Given that he is immunosuppressed and has spiked a fever, I have ordered broad-spectrum vancomycin and Levaquin given that he has a beta-lactam allergy with the reaction being angioedema. I asked the patient to allow me to remove the dressings from his bilateral lower extremities to examine the area in case it is the source of infection but he refuses saying that he will allow examination at a later time but not now. He understands that doing so may delay appropriate diagnosis. At 8:45 PM, the case was signed out to Dr. Meza who will follow up the sepsis order set results and plan to admit the patient to the on-call hospitalist for further work-up and management. Critical Care Time: Yes Critical care time in (mins) excluding proc time.: 35 Critical care attestation.: If time is entered above; I have spent that time in minutes in the direct care of this critically ill patient, excluding procedure time. Critical care time was spent in the evaluation/assessment, work-up, and management of initially complex psychiatric situation requiring consultation and discussion with psychiatry team as well as immunosuppression with fever and suspected sepsis requiring initiation of sepsis protocol with IV antibiotics and fluids. ED Disposition Clinical Impression: AIDS, Suicidal ideation, Auditory hallucination, Multiple excoriations, Sepsis, Fever of unknown origin with HIV infection Neutropenia Qualifiers: Neutropenia type: unspecified Qualified Code(s): D70.9 - Neutropenia, unspecified Disposition: 09 ADMITTED INPATIENT Is pt being admited?: Yes Condition: Undetermined
[2021-02-01 17:50] LABS: Hemoglobin 7.7 gm/dl (11.8-15.2); Mean Corpuscular HGB Conc 33 % (32-34); Mean Corpuscular Volume 85 fl (84-94); Platelet Count 185 K/mm3 (140-440); Red Blood Count 2.69 M/mm3 (3.65-5.03); Red Cell Distribution Width 17.3 % (13.2-15.2)
[2021-02-01 18:14] LABS: BUN/Creatinine Ratio 9; Blood Urea Nitrogen 12 mg/dL (9-20); Calcium 7.8 mg/dL (8.4-10.2); Hemolysis Index 4
[2021-02-01] MEDS ORDERED: SODIUM CHLORIDE 0.9% 1000 ML 1,000 ML IV ONE (20:28)
[2021-02-01] MEDS ORDERED: VANCOMYCIN PHARMACY TO DOSE IV SCH (21:00)
[2021-02-01] MEDS ORDERED: VANCOMYCIN 1,750 MG in SODIUM CHLORIDE 0.9% 500 ML 500 ML IV ONE (21:00)
[2021-02-01 21:17] LABS: Hematocrit 24.3 % (35.5-45.6); Hemoglobin 8.1 gm/dl (11.8-15.2); Mean Corpuscular HGB Conc 33 % (32-34); Mean Corpuscular Volume 85 fl (84-94); Platelet Count 202 K/mm3 (140-440); Red Blood Count 2.88 M/mm3 (3.65-5.03); Red Cell Distribution Width 17.7 % (13.2-15.2)
--- NOTE | 2021-02-01 21:17 | XRay Report ---
CHEST 1 VIEW INDICATION / CLINICAL INFORMATION: fever. COMPARISON: 01/05/2021 FINDINGS: SUPPORT DEVICES: None. HEART / MEDIASTINUM: No significant abnormality. LUNGS / PLEURA: No significant pulmonary or pleural abnormality. No pneumothorax. ADDITIONAL FINDINGS: No significant additional findings. IMPRESSION: 1. No acute findings. Signer Name: Todd Fernandes MD Signed: 02/01/2021 9:12 PM Workstation Name: [id number]
[2021-02-01 21:29] LABS: Alanine Aminotransferase 11 units/L (7-56); Albumin 3.3 g/dL (3.9-5); BUN/Creatinine Ratio 10; Blood Urea Nitrogen 12 mg/dL (9-20); Calcium 8.1 mg/dL (8.4-10.2); Hemolysis Index 1
[2021-02-01 21:30] LABS: Total Cells Counted 100
[2021-02-01 21:31] LABS: Ovalocytes 1+; Schistocytes Few
[2021-02-01 21:37] LABS: Platelet Estimate Consistent w Auto; Tear Drop Cells Rare
[2021-02-01 22:22] LABS: Total Cells Counted 100
[2021-02-01 22:23] LABS: Tear Drop Cells Few
[2021-02-01 22:24] LABS: Ovalocytes 1+; Poikilocytosis Few; Schistocytes Few
[2021-02-01 22:25] LABS: Platelet Estimate Consistent w Auto
[2021-02-01] MEDS ORDERED: NALOXONE 0.4 MG/1 ML INJ IV PRN (22:55)
[2021-02-01] MEDS ORDERED: diphenhydrAMINE 50 MG/ML VIAL IV PRN (23:55)
[2021-02-01] MEDS ORDERED: ONDANSETRON 4 MG/2 ML INJ IV PRN (23:55)
[2021-02-01] MEDS ORDERED: SODIUM CHLORIDE 0.9% 1000 ML 1,000 ML IV SCH (23:55)
[2021-02-02 02:23] LABS: Bilirubin,Urine NEG (Negative); Blood,Urine NEG (Negative); Color,Urine Yellow (Yellow); Mucus,Urine FEW /HPF; Urobilinogen,Urine < 2.0 mg/dL (<2.0)
[2021-02-02 02:25] LABS: Amphetamine Screen,Urine PRESUMPTIVE NEGATIVE; Benzodiazepines Screen,Urine PRESUMPTIVE NEGATIVE; Cannabinoid Screen,Urine PRESUMPTIVE NEGATIVE; Cocaine Screen,Urine PRESUMPTIVE NEGATIVE; Methadone Screen,Urine PRESUMPTIVE NEGATIVE; Opiate Screen,Urine PRESUMPTIVE NEGATIVE
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
[2021-02-02] MEDS ORDERED: ALBUTEROL 8.5 GM MDI INHALATION IH PRN (04:00)
[2021-02-02] MEDS: CEFEPIME/NS 1 GM/100 ML 1 GM/100 ML BAG IV SCH ×2 (04:11→10:32)
[2021-02-02] MEDS ORDERED: VANCOMYCIN 1,250 MG in SODIUM CHLORIDE 0.9% 250ML 250 ML IV SCH (10:00)
[2021-02-02] MEDS: FAMOTIDINE 10 MG TAB PO SCH ×2 (10:28→21:47)
[2021-02-02] MEDS: HEPARIN 5,000 UNIT/1 ML VIAL SUB-Q SCH ×2 (10:28→21:47)
[2021-02-02] MEDS: DOCUSATE SODIUM 100 MG CAP PO SCH ×2 (10:28→21:47)
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
--- NOTE | 2021-02-02 12:02 | Progress Note ---
Subjective - Reason for Consult Consult date: 02/02/21 Reason for consult: SI - Chief Complaint Chief complaint: The patient was seen today. He appears much better. He says he was actually able to get some sleep. He denies SI/HI. The patient says "I thought about it last night but not today." The patient says his health and living situation make him feel this way. He says he's trying to get to "[place] with his aunt Sarai and Uncle Yusef." The patient is asking for his phone. He says he has hallucinations on and off, but denies them being harmful. REVIEW OF SYSTEMS Constitutional: Negative for weight loss ENT: Negative for stridor Respiratory: Negative for cough or hemoptysis All other systems reviewed and are negative MENTAL STATUS EXAMINATION General Appearance and Behavior: Age appropriate, dressed appropriately, calm and cooperative Cooperation: engaging Psychomotor Behavior: psychomotor normal Mood: better Affect and affective range: Congruent with stated mood Thought Process: goal oriented Thought Content: None Speech: Normal volume, Regular rate and rhythm, Suicidal Ideation: Denies Homicidal Ideation: denies Hallucinations: Denies Delusions: None elicited Impulse Control: Unimpaired Insight and Judgment: limited insight and judgment, Memory: Normal Attention: attentive Orientation: Alert, oriented Assessment and Plan (1) Generalized Anxiety Disorder Treatment plan d/c 1013 Continue previous prescribed meds Risks, benefits and alternatives of medications discussed with the patient, questions answered and consent obtained from patient. PSYCHOTHERAPY: Supportive psychotherapy provided MEDICAL: Per primary team DELIRIUM PRECAUTIONS: Please re-orient patient frequently, keep lights on during the day, and minimize benzodiazepines and opiates as these medications could worsen patient's confusion. ENVIRONMENTAL FIELD PROFESSIONAL: Per medical team DISPOSITION: Do not Recommend acute inpatient psychiatric hospitalization. The patient may discharge once medically clear. The patient is to follow up with outpatient psych in 7 to 14 days upon discharge The property condition assessor to give the patient all necessary outpatient resources. Please give the patient a transportation pass if needed. Will sign off. Thank you for the consult. Please contact with any questions and/or concerns. Case staffed with Dr. Norwood Mental Status Exam - Vital signs Last Vital Signs Temp 98.6 F 02/02/21 06:06 Pulse 101 H 02/02/21 06:06 Resp 18 02/02/21 06:27 BP 122/67 02/02/21 06:06 Pulse Ox 96 02/02/21 06:27
--- NOTE | 2021-02-02 12:27 | Consultation ---
History of Present Illness - Reason for Consult Consult date: 02/02/21 PUI, HIV, fever Requesting physician: ODETTE RODAS - History of Present Illness The patient is a 45-year-old male with homelessness, HIV/AIDS, not on antiretroviral therapy, anxiety, asthma was admitted to the hospital with suicidal ideation. He was noted to have low-grade fever and multiple excoriations on his body. Has presented to the ER multiple times. Labs revealed leukopenia. Most recent CD4 count was 3 on 01/06/2021. Infectious diseases was consulted for additional evaluation. COVID-19 test is pending at this time. Chest x-ray does not reveal any pneumonia. Review of Systems: reviewed in the chart, unable to obtain, minimize risk of transmission Past History Past Medical History: HIV/AIDS, other (Anxiety, asthma) Past Surgical History: appendectomy Social history: (Does not live with ), full code, other (Homelessness). denies: smoking, alcohol abuse, prescription drug abuse, IV drug use Family history: no significant family history Medications and Allergies Allergies Allergy/AdvReac Type Severity Reaction Status Date / Time Penicillins Allergy Angioedema Verified 01/14/21 12:05 cinnamon AdvReac Unknown Hives Verified 02/02/21 06:11 Home Medications Medication Instructions Recorded Confirmed Last Taken Type Hyoscyamine Subl [Levsin Sl 0.125 0.125 mg SL ONCE #20 tablet 01/07/21 Unknown Rx TAB] Ondansetron [Zofran ODT TAB] 4 mg PO ONCE #20 tab.rapdis 01/07/21 Unknown Rx QUEtiapine [SEROquel] 50 mg PO QHS tablet 01/07/21 Unknown Rx Sertraline [Zoloft] 50 mg PO QDAY tablet 01/07/21 Unknown Rx levoFLOXacin [Levaquin TAB] 500 mg PO Q24HR #5 tablet 01/07/21 Unknown Rx methOCARBAMOL [Robaxin TAB] 500 mg PO Q6H PRN #14 tablet 01/07/21 Unknown Rx oxyCODONE /ACETAMINOPHEN [Percocet 1 tab PO Q6H PRN #14 tablet 01/07/21 Unknown Rx 5/325 mg] Bacitracin Zinc/Polymyxin B 1 applicatio TP DAILY #1 tube 01/31/21 Unknown Rx [Polysporin Ointment] Non-Adherent Bandage [Surgical 1 each TP DAILY #10 bandage 01/31/21 Unknown Rx Dressing] hydrOXYzine PAMOATE [Vistaril] 25 mg PO BID PRN #60 capsule 02/01/21 Unknown Rx Active Meds: Active Medications Acetaminophen (Acetaminophen 325 Mg Tab) 650 mg PO Q4H PRN PRN Reason: Pain MILD(1-3)/Fever >100.5/STEPHENS Albuterol (Albuterol 8.5 Gm Mdi Inhalation) 2 puff IH Q4HRT PRN PRN Reason: Shortness Of Breath Alprazolam (Alprazolam 0.5 Mg Tab) 0.5 mg PO Q8H PRN PRN Reason: Anxiety Diphenhydramine HCl (Diphenhydramine 50 Mg/Ml Vial) 25 mg IV Q6H PRN PRN Reason: Itching/ allergic reaction Docusate Sodium (Docusate Sodium 100 Mg Cap) 100 mg PO BID [facility] Last Admin: 02/02/21 10:28 Dose: 100 mg Documented by: Famotidine (Famotidine 10 Mg Tab) 10 mg PO BID [facility] Last Admin: 02/02/21 10:28 Dose: 10 mg Documented by: Heparin Sodium (Porcine) (Heparin 5,000 Unit/1 Ml Vial) 5,000 unit SUB-Q Q12HR [facility] Last Admin: 02/02/21 10:28 Dose: 5,000 unit Documented by: Hydroxyzine Pamoate (Hydroxyzine Pamoate 25 Mg Cap) 25 mg PO ONCE@1300 [facility] Stop: 02/02/21 18:00 Sodium Chloride (Nacl 0.9% 1000 Ml) 1,000 mls @ 100 mls/hr IV DIRECT [facility] Stop: 02/02/21 23:54 Ceftriaxone Sodium (Rocephin/Ns 2 Gm/100 Ml) 2 gm in 100 mls @ 200 mls/hr IV Q24HR YANELIS; Protocol Naloxone HCl (Naloxone 0.4 Mg/1 Ml Inj) 0.1 mg IV Q2MIN PRN PRN Reason: Res Rate </= 8 or 02 SAT < 92% Ondansetron HCl (Ondansetron 4 Mg/2 Ml Inj) 4 mg IV Q6H PRN PRN Reason: Nausea And Vomiting Oxycodone/Acetaminophen (Oxycodone /Acetaminophen 5-325mg Tab) 1 tab PO Q6H PRN PRN Reason: Pain, Moderate (4-6) Sodium Chloride (Sodium Chloride 0.9% 10 Ml Flush Syringe) 10 ml IV BID YANELIS Last Admin: 02/02/21 10:29 Dose: 10 ml Documented by: Sodium Chloride (Sodium Chloride 0.9% 10 Ml Flush Syringe) 10 ml IV PRN PRN PRN Reason: LINE FLUSH Trimethoprim/Sulfamethoxazole (Sulfamethoxazole/Trimethoprim 800/160mg Ds Tab) 1 each PO Q24HR YANELIS; Protocol Physical Examination - Physical Exam Narrative exam: Physical Exam (reviewed in chart to minimize risk of transmission) Constitutional: deferred Head, Ears, Nose: deferred Eyes: deferred Neck: deferred Oral: deferred Cardiovascular: deferred Respiratory: deferred GI: deferred Musculoskeletal: deferred Skin: deferred Hem/Lymphatic: deferred Psych: deferred Neurological: deferred - Constitutional Vitals: Vital Signs Temp Pulse Resp BP Pulse Ox 98.6 F 101 H 18 122/67 96 02/02/21 06:06 02/02/21 06:06 02/02/21 06:27 02/02/21 06:06 02/02/21 06:27 Temperature -Last 24 Hours Temperature 98.6 F Temperature 98.9 F Temperature 100.3 F Temperature 100.3 F Results - Labs CBC & Chem 7: 02/01/21 20:54 02/01/21 20:54 Labs: Abnormal lab results 02/01/21 02/01/21 02/01/21 Range/Units 17:21 17:21 17:21 WBC 3.1 L (4.5-11.0) K/mm3 RBC 2.69 L (3.65-5.03) M/mm3 Hgb 7.7 L (11.8-15.2) gm/dl Hct 23.0 L (35.5-45.6) % RDW 17.3 H (13.2-15.2) % Seg Neuts % (Manual) 77.0 H (40.0-70.0) % Lymphocytes % (Manual) (13.4-35.0) % Lymphocytes # (Manual) 0.5 L (1.2-5.4) K/mm3 Sodium (137-145) mmol/L Potassium 3.4 L (3.6-5.0) mmol/L Glucose 105 H (75-100) mg/dL Lactic Acid (0.7-2.0) mmol/L Calcium 7.8 L (8.4-10.2) mg/dL Albumin (3.9-5) g/dL Salicylates < 0.3 L (2.8-20.0) mg/dL Acetaminophen (10.0-30.0) ug/mL 02/01/21 02/01/21 02/01/21 Range/Units 17:21 20:54 20:54 WBC 3.0 L (4.5-11.0) K/mm3 RBC 2.88 L (3.65-5.03) M/mm3 Hgb 8.1 L (11.8-15.2) gm/dl Hct 24.3 L (35.5-45.6) % RDW 17.7 H (13.2-15.2) % Seg Neuts % (Manual) 81.0 H (40.0-70.0) % Lymphocytes % (Manual) 13.0 L (13.4-35.0) % Lymphocytes # (Manual) 0.4 L (1.2-5.4) K/mm3 Sodium 136 L (137-145) mmol/L Potassium 3.5 L (3.6-5.0) mmol/L Glucose (75-100) mg/dL Lactic Acid (0.7-2.0) mmol/L Calcium 8.1 L (8.4-10.2) mg/dL Albumin 3.3 L (3.9-5) g/dL Salicylates (2.8-20.0) mg/dL Acetaminophen 5.0 L (10.0-30.0) ug/mL 02/02/21 Range/Units 00:41 WBC (4.5-11.0) K/mm3 RBC (3.65-5.03) M/mm3 Hgb (11.8-15.2) gm/dl Hct (35.5-45.6) % RDW (13.2-15.2) % Seg Neuts % (Manual) (40.0-70.0) % Lymphocytes % (Manual) (13.4-35.0) % Lymphocytes # (Manual) (1.2-5.4) K/mm3 Sodium (137-145) mmol/L Potassium (3.6-5.0) mmol/L Glucose (75-100) mg/dL Lactic Acid 0.50 L (0.7-2.0) mmol/L Calcium (8.4-10.2) mg/dL Albumin (3.9-5) g/dL Salicylates (2.8-20.0) mg/dL Acetaminophen (10.0-30.0) ug/mL - Imaging and Cardiology Chest x-ray: report reviewed, image reviewed (no pneumonia) Assessment and Plan Cultures: SARS CoV2 PCR: pending A/P: 45-year-old male with homelessness, HIV/AIDS, not on antiretroviral therapy, anxiety, asthma was admitted to the hospital with suicidal ideation: #Low-grade fever, leukopenia: Could be related to uncontrolled HIV/AIDS. Chest x-ray without any pneumonia, on room air. Evaluate for other occult opportunistic infections. #HIV/AIDS: not on ARVs. CD4 count of 3 in 01/2021. #Suicidal ideation: Psychiatry following. #Multiple wounds: Recommend wound care Recs: -Follow-up COVID-19 PCR -Antibiotics switched to ceftriaxone -P.O. Bactrim ordered for prophylaxis -LDH, Fungitell, serum cryptococcal antigen ordered -f/u cultures -poor prognosis Jackie Del Valle MD, FACP [facility] ([facility] O: [phone] F: [phone]
[2021-02-02] MEDS ORDERED: hydrOXYzine PAMOATE 25 MG CAP PO SCH (13:00)
[2021-02-02] MEDS: cefTRIAXone/NS 2 GM/100 ML 2 GM/100 ML BAG IV SCH (15:12)
[2021-02-02] MEDS: SULFAMETHOXAZOLE/TRIMETHOPRIM 800/160MG DS TAB PO SCH (15:13)
[2021-02-02] MEDS: oxyCODONE /ACETAMINOPHEN 5-325MG TAB PO PRN (21:49)
[2021-02-03] MEDS: ALPRAZolam 0.5 MG TAB PO PRN ×2 (04:31→22:28)
[2021-02-03 07:20] LABS: Hematocrit 22.2 % (35.5-45.6); Hemoglobin 7.4 gm/dl (11.8-15.2); Mean Corpuscular HGB Conc 33 % (32-34); Mean Corpuscular Volume 84 fl (84-94); Platelet Count 214 K/mm3 (140-440); Red Blood Count 2.64 M/mm3 (3.65-5.03); Red Cell Distribution Width 17.1 % (13.2-15.2)
[2021-02-03 07:40] LABS: BUN/Creatinine Ratio 8; Blood Urea Nitrogen 8 mg/dL (9-20); Calcium 7.8 mg/dL (8.4-10.2); Hemolysis Index 2
[2021-02-03] MEDS: HEPARIN 5,000 UNIT/1 ML VIAL SUB-Q SCH ×2 (09:22→21:48)
[2021-02-03] MEDS: SULFAMETHOXAZOLE/TRIMETHOPRIM 800/160MG DS TAB PO SCH (09:22)
[2021-02-03] MEDS: DOCUSATE SODIUM 100 MG CAP PO SCH ×2 (09:22→21:47)
[2021-02-03] MEDS: cefTRIAXone/NS 2 GM/100 ML 2 GM/100 ML BAG IV SCH (09:22)
[2021-02-03] MEDS: FAMOTIDINE 10 MG TAB PO SCH ×2 (09:23→21:47)
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
[2021-02-03] MEDS ORDERED: VANCOMYCIN PHARMACY TO DOSE IV SCH (15:00)
[2021-02-03] MEDS ORDERED: VANCOMYCIN 1,250 MG in SODIUM CHLORIDE 0.9% 500 ML 500 ML IV ONE (15:00)
--- NOTE | 2021-02-03 15:00 | Progress Note ---
Assessment and Plan Cultures: SARS CoV2 PCR: negative 02/01/2021 blood culture: No growth 02/02/2021 serum cryptococcal antigen: Negative A/P: 45-year-old male with homelessness, HIV/AIDS, not on antiretroviral therapy, anxiety, asthma was admitted to the hospital with suicidal ideation: #Low-grade fever, leukopenia: Could be related to uncontrolled HIV/AIDS. Chest x-ray without any pneumonia, on room air. Evaluate for other occult opportunistic infections. #HIV/AIDS: not on ARVs. CD4 count of 3 in 01/2021. Patient states he was only recently diagnosed. He is not aware of any HIV related community resources. He has no home, no insurance, no money to pay for anything. #Suicidal ideation: Psychiatry cleared pt. #Multiple wounds, skin excoriations, suspected b/l LE cellulitis: Recommend wound care and empiric abx. Etiology of other skin lesions is unclear. Recs: -continue ceftriaxone -vancomycin added -P.O. Bactrim DS for prophylaxis -since it is unclear when he will actually being ART, added Azithromycin prophylaxis -f/u LDH, Fungitell -f/u cultures -wound care -Will need social work specialist assistance in providing resources as well as transportation. Patient will need to follow-up at [facility] clinic or [facility] -guarded prognosis Jackie Del Valle MD, FACP [facility] ([facility] O: [phone] F: [phone] Subjective Date of service: 02/03/21 Interval history: Febrile x 1 yesterday. Complains of bilateral lower extremity leg pain. Declined more detailed exam. Getting frustrated with any question I ask regarding his condition. Objective - Exam Narrative Exam: Physical Exam Constitutional: Alert, cooperative. No acute distress Head, Ears, Nose: Normocephalic, atraumatic. External ears, nose normal Eyes: Conjunctivae/corneas clear. No icterus. No ptosis. Neck: Supple, no meningeal signs Cardiovascular: S1, S2 + Respiratory: Good air entry, clear to auscultation bilaterally GI: Soft, non-tender; bowel sounds normal. No peritoneal signs Musculoskeletal: No pedal edema, no cyanosis. Skin: extensive excoriations on face, b/l arms, legs. Bilateral lower extremities with excoriations, dressing present. Patient declined more detailed exam due to pain Hem/Lymphatic: No palpable cervical or supraclavicular nodes. No lymphangitis Psych: flat affect Neurological: Awake, alert, oriented. No gross abnormality - Constitutional Vitals: Vital Signs Temp Pulse Resp BP Pulse Ox -98.2 F L 88 18 125/72 98 02/03/21 11:45 02/03/21 11:45 02/03/21 11:45 02/03/21 11:45 02/03/21 12:44 Temperature -Last 24 Hours Temperature -98.2 F Temperature 98.8 F Temperature 101.2 F Temperature 99.4 F - Labs CBC & Chem 7: 02/03/21 07:09 02/03/21 07:09 Labs: Abnormal lab results 02/03/21 02/03/21 Range/Units 07:09 07:09 WBC 2.6 L (4.5-11.0) K/mm3 RBC 2.64 L (3.65-5.03) M/mm3 Hgb 7.4 L (11.8-15.2) gm/dl Hct 22.2 L (35.5-45.6) % RDW 17.1 H (13.2-15.2) % Sodium 135 L (137-145) mmol/L BUN 8 L (9-20) mg/dL Calcium 7.8 L (8.4-10.2) mg/dL
[2021-02-03] MEDS: VANCOMYCIN 1,250 MG in SODIUM CHLORIDE 0.9% 250ML 250 ML IV SCH (17:41)
[2021-02-03] MEDS: AZITHROMYCIN 600 MG TAB PO SCH (18:04)
[2021-02-04] MEDS: VANCOMYCIN 1,250 MG in SODIUM CHLORIDE 0.9% 250ML 250 ML IV SCH ×3 (06:37→18:30)
[2021-02-04] MEDS: DOCUSATE SODIUM 100 MG CAP PO SCH ×2 (09:50→21:57)
[2021-02-04] MEDS: SULFAMETHOXAZOLE/TRIMETHOPRIM 800/160MG DS TAB PO SCH (09:50)
[2021-02-04] MEDS: FAMOTIDINE 10 MG TAB PO SCH ×2 (09:50→21:58)
[2021-02-04] MEDS: HEPARIN 5,000 UNIT/1 ML VIAL SUB-Q SCH ×2 (09:51→21:58)
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
[2021-02-04] MEDS: cefTRIAXone/NS 2 GM/100 ML 2 GM/100 ML BAG IV SCH (10:10)
--- NOTE | 2021-02-04 12:18 | Progress Note ---
Assessment and Plan Cultures: SARS CoV2 PCR: negative 02/01/2021 blood culture: No growth 02/02/2021 serum cryptococcal antigen: Negative A/P: 45-year-old male with homelessness, HIV/AIDS, not on antiretroviral therapy, anxiety, asthma was admitted to the hospital with suicidal ideation: #Low-grade fever, leukopenia: Could be related to uncontrolled HIV/AIDS. Chest x-ray without any pneumonia, on room air. Evaluate for other occult opportunistic infections. #HIV/AIDS: not on ARVs. CD4 count of 3 in 01/2021. Patient states he was only recently diagnosed. He is not aware of any HIV related community resources. He has no home, no insurance, no money to pay for anything. #Suicidal ideation: Psychiatry cleared pt. #Multiple wounds, skin excoriations, suspected b/l LE cellulitis: Recommend wound care and empiric abx. Etiology of other skin lesions is unclear. Recs: f/u LDH, Fungitell, cultures continue wound care Continue ceftriaxone, vancomycin Continue PO Bactrim DS 1 tab daily as prophylaxis Continue weekly PO azithromycin 1200 mg as prophylaxis (since it is unclear when he will actually begin ART, added Azithromycin prophylaxis) If he remains afebrile, may discharge on PO Keflex 500 mg QID plus doxycycline 100 mg BID x 10 days Will need social research assistant assistance in providing resources as well as transportation. Patient will need to follow-up at [facility] or [facility] guarded prognosis Jackie Del Valle MD, FACP [facility] O: [phone] F: [phone] Subjective Date of service: 02/04/21 Interval history: No fever. No new complaints. Objective - Exam Narrative Exam: Physical Exam Constitutional: Alert, cooperative. No acute distress Head, Ears, Nose: Normocephalic, atraumatic. External ears, nose normal Eyes: Conjunctivae/corneas clear. No icterus. No ptosis. Neck: Supple, no meningeal signs Oral: no thrush Cardiovascular: S1, S2 + Respiratory: Good air entry, clear to auscultation bilaterally GI: Soft, non-tender; bowel sounds normal. No peritoneal signs Musculoskeletal: No pedal edema, no cyanosis. Skin: extensive excoriations on face, b/l arms, legs. Bilateral lower extremities with excoriations, dressing present. Hem/Lymphatic: No palpable cervical or supraclavicular nodes. No lymphangitis Psych: flat affect Neurological: Awake, alert, oriented. No gross abnormality - Constitutional Vitals: Vital Signs Temp Pulse Resp BP Pulse Ox 98.3 F 115 H 18 101/53 99 02/04/21 04:30 02/04/21 04:30 02/04/21 04:30 02/04/21 04:30 02/04/21 04:30 Temperature -Last 24 Hours Temperature 98.3 F Temperature 98.2 F Temperature 97.6 F Temperature 99.2 F Temperature 98.5 F - Labs CBC & Chem 7: 02/03/21 07:09 02/03/21 07:09
[2021-02-04] MEDS: ACETAMINOPHEN 325 MG TAB PO PRN (21:57)
[2021-02-05] MEDS: VANCOMYCIN 1,250 MG in SODIUM CHLORIDE 0.9% 250ML 250 ML IV SCH ×2 (07:47→20:00)
[2021-02-05] MEDS: FAMOTIDINE 10 MG TAB PO SCH ×2 (10:00→21:40)
[2021-02-05] MEDS: HEPARIN 5,000 UNIT/1 ML VIAL SUB-Q SCH ×2 (10:47→21:40)
[2021-02-05] MEDS: DOCUSATE SODIUM 100 MG CAP PO SCH ×2 (10:48→21:40)
[2021-02-05] MEDS: SULFAMETHOXAZOLE/TRIMETHOPRIM 800/160MG DS TAB PO SCH (10:48)
[2021-02-05] MEDS: cefTRIAXone/NS 2 GM/100 ML 2 GM/100 ML BAG IV SCH (10:49)
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
[2021-02-06] MEDS: DOCUSATE SODIUM 100 MG CAP PO SCH ×2 (10:52→22:55)
[2021-02-06] MEDS: DOXYCYCLINE 100 MG CAP PO SCH ×2 (10:52→22:56)
[2021-02-06] MEDS: FAMOTIDINE 10 MG TAB PO SCH ×2 (10:52→22:55)
[2021-02-06] MEDS: SULFAMETHOXAZOLE/TRIMETHOPRIM 800/160MG DS TAB PO SCH (10:53)
[2021-02-06] MEDS: HEPARIN 5,000 UNIT/1 ML VIAL SUB-Q SCH ×2 (10:53→22:54)
--- NOTE | 2021-02-06 10:58 | Progress Note ---
Assessment and Plan Assessment and plan: 45-year-old homeless male with history of AIDS, anxiety, and asthma who presented at [facility] ED with complaints of suicidal ideation. Patient states his has taken everything from him, and he is now homeless struggling to find food and skilled nursing. Endorses feeling anxious, and depressed and wants to end his life. He states that he has voices in his head telling him to kill himself which started approximately a day ago. While in the ED patient was noted to have a fever and multiple excoriations throughout his body. Additionally he complains of generalized body pain. Endorses feeling itchy and as a result he continues to scratch his body, which has contributed to the multiple excoriations noted. SIRS -CXR unremarkable -Leukopenia 3.0 -Tachycardic with heart rate 107 bpm -T-max 100.3 -On IV ABX -UA pending -Blood cultures pending -Will continue to workup source of infection -May be due to opportunistic infection related to AIDS -Follow up on labs -Continue supportive care Suspected COVID-19 virus infection-ruled out -Patient is homeless and is struggling to find food and skilled nursing, has multiple risks for exposure -Complains of " body pain" -PCR pending -Follow-up on Covid labs -ID consult pending Suicidal ideation -States he has voices in his head telling him to kill his self x1 day -Seen and evaluated in ED by psych -Pending admission to inpatient psych once medically cleared -Psych consult pending Anxiety -Reports history of severe anxiety -Xanax as needed Hypokalemia AIDS -Last known CD4 count of 3 -Not on antiretroviral meds -ID consulted, recs appreciated Multiple wounds -Scattered excoriations throughout body in various stages of wound healing -Wound care consult pending History of asthma -Albuterol as needed 02/02: Patient remains clinically stable, awaiting COVID19 TESTING RESULT. Psych input noted, cleared as patient denies suicidal ideation. Wound management. Anticipate discharge in am if COVID19 is negative. Replace K. 02/03: Patient still with low grade fever, Negative COVID 19 TEST, per ID, - Antibiotics switched to ceftriaxone -P.O. Bactrim ordered for prophylaxis -LDH, Fungitell, serum cryptococcal antigen ordered. Continue supportive care. 02/04: Patient seen and examined today no acute distress still with skin excor iation dry skin etiology of skin lesions is unclear if this needs to be evaluated outpatient. Patient was seen by ID and was recommended and treated with ceftriaxone and vancomycin also p.o. Bactrim DS 1 tab daily for prophylaxis and azithromycin 1200 mg as prophylaxis. (since it is unclear when he will actually begin ART, added Azithromycin prophylaxis) If he remains afebrile, may discharge on PO Keflex 500 mg QID plus doxycycline 100 mg BID x 10 days Patient's leukopenia was felt to be secondary to uncontrolled HIV/AIDS chest x- ray was without pneumonia and is on room air doing well no other options infection is noted. Patient was cleared by psychiatry for suicidal ideation. He tolerated ceftriaxone here just the reason why Keflex has been added to his medication regimen. I did discuss with social workers for assistance in providing him resources on for placement and also transportation Patient will need to follow-up at [facility] or [facility] guarded prognosis 02/05: Patient has been discharged awaiting placement. My anticipation is with the patient will go to personal longterm out of the skilled nursing. He continues to refuse treatment while in house here. 02/05: Awaiting safe discharge. Continue supportive care, counselling provided to comply with treatment History Interval history: Patient seen and examined, patient has been discharged not sure why the patient still in house understand but they are looking for placement for the patient's nevertheless he continues to refuse treatment and therapy while in-house Hospitalist Physical - Physical exam Narrative exam: General appearance: Present: No acute distress, alert and oriented 3, thin, adult male - EENT Eyes: Present: PERRL, EOM intact ENT: hearing intact, missing teeth, poor dentition. Temporal wasting - Neck Neck: Present: supple, normal ROM - Respiratory Respiratory effort: Non-labored Respiratory: Clear throughout - Cardiovascular Heart rate: 107 (bpm) Rhythm: Sinus tachycardia Heart Sounds: Present: S1 & S2. Absent: rub, click - Extremities Extremities: no ischemia, pulses intact, - Peripheral Assessment Peripheral Pulses: within normal limits - Abdominal General gastrointestinal: soft, non-tender, normal bowel sounds - Integumentary Integumentary: Present: warm, dry, multiple excoriations throughout the body in different stages of wound healing - Musculoskeletal Musculoskeletal: Able to move all extremities -Neurological Neurological: CN II-XII intact - Psychiatric Psychiatric: cooperative - Constitutional Vitals: Temp Pulse Resp BP Pulse Ox 98.3 F 104 H 18 104/55 100 02/06/21 03:28 02/06/21 03:28 02/06/21 03:28 02/06/21 03:28 02/06/21 03:28 Results - Labs CBC & Chem 7: 02/03/21 07:09 02/03/21 07:09 Labs: Laboratory Last Values WBC 2.6 K/mm3 (4.5-11.0) L 02/03/21 07:09 RBC 2.64 M/mm3 (3.65-5.03) L 02/03/21 07:09 Hgb 7.4 gm/dl (11.8-15.2) L 02/03/21 07:09 Hct 22.2 % (35.5-45.6) L 02/03/21 07:09 MCV 84 fl (84-94) 02/03/21 07:09 MCH 28 pg (28-32) 02/03/21 07:09 MCHC 33 % (32-34) 02/03/21 07:09 RDW 17.1 % (13.2-15.2) H 02/03/21 07:09 Plt Count 214 K/mm3 (140-440) 02/03/21 07:09 [place] % (Auto) Motor Mechanic 02/01/21 20:54 Add Manual Diff Complete 02/01/21 20:54 Total Counted 100 02/01/21 20:54 Seg Neuts % (Manual) 81.0 % (40.0-70.0) H 02/01/21 20:54 Lymphocytes % (Manual) 13.0 % (13.4-35.0) L 02/01/21 20:54 Monocytes % (Manual) 6.0 % (0.0-7.3) 02/01/21 20:54 Nucleated RBC % Not Reportable 02/01/21 20:54 Seg Neutrophils # Man 2.4 K/mm3 (1.8-7.7) 02/01/21 20:54 Band Neutrophils # 0.0 K/mm3 02/01/21 20:54 Lymphocytes # (Manual) 0.4 K/mm3 (1.2-5.4) L 02/01/21 20:54 Abs React Lymphs (Man) 0.0 K/mm3 02/01/21 20:54 Monocytes # (Manual) 0.2 K/mm3 (0.0-0.8) 02/01/21 20:54 Eosinophils # (Manual) 0.0 K/mm3 (0.0-0.4) 02/01/21 20:54 Basophils # (Manual) 0.0 K/mm3 (0.0-0.1) 02/01/21 20:54 Metamyelocytes # 0.0 K/mm3 02/01/21 20:54 Myelocytes # 0.0 K/mm3 02/01/21 20:54 Promyelocytes # 0.0 K/mm3 02/01/21 20:54 Blast Cells # 0.0 K/mm3 02/01/21 20:54 WBC Morphology Not Reportable 02/01/21 20:54 Hypersegmented Neuts Not Reportable 02/01/21 20:54 Hyposegmented Neuts Not Reportable 02/01/21 20:54 Hypogranular Neuts Not Reportable 02/01/21 20:54 Smudge Cells Not Reportable 02/01/21 20:54 Toxic Granulation Not Reportable 02/01/21 20:54 Toxic Vacuolation Not Reportable 02/01/21 20:54 Dohle Bodies Not Reportable 02/01/21 20:54 Pelger-Huet Anomaly Not Reportable 02/01/21 20:54 Steffi Rods Not Reportable 02/01/21 20:54 Platelet Estimate Consistent w auto 02/01/21 20:54 Clumped Platelets Not Reportable 02/01/21 20:54 Plt Clumps, EDTA Not Reportable 02/01/21 20:54 Large Platelets Not Reportable 02/01/21 20:54 Giant Platelets Not Reportable 02/01/21 20:54 Platelet Satelliting Not Reportable 02/01/21 20:54 Plt Morphology Comment Not Reportable 02/01/21 20:54 RBC Morphology Not Reportable 02/01/21 20:54 Dimorphic RBCs Not Reportable 02/01/21 20:54 Polychromasia Not Reportable 02/01/21 20:54 Hypochromasia Not Reportable 02/01/21 20:54 Poikilocytosis Few 02/01/21 20:54 Anisocytosis Not Reportable 02/01/21 20:54 Microcytosis Not Reportable 02/01/21 20:54 Macrocytosis Not Reportable 02/01/21 20:54 Spherocytes Not Reportable 02/01/21 20:54 Pappenheimer Bodies Not Reportable 02/01/21 20:54 Sickle Cells Not Reportable 02/01/21 20:54 Target Cells Not Reportable 02/01/21 20:54 Tear Drop Cells Few 02/01/21 20:54 Ovalocytes 1+ 02/01/21 20:54 Helmet Cells Not Reportable 02/01/21 20:54 Hackett-Landfall Bodies Not Reportable 02/01/21 20:54 [place] Rings Not Reportable 02/01/21 20:54 Praveena Cells Not Reportable 02/01/21 20:54 Bite Cells Not Reportable 02/01/21 20:54 Crenated Cell Not Reportable 02/01/21 20:54 Elliptocytes Rare 02/01/21 20:54 Acanthocytes (Spur) Not Reportable 02/01/21 20:54 Rouleaux Not Reportable 02/01/21 20:54 Hemoglobin C Crystals Not Reportable 02/01/21 20:54 Schistocytes Few 02/01/21 20:54 Malaria parasites Not Reportable 02/01/21 20:54 Josue Bodies Not Reportable 02/01/21 20:54 Hem Pathologist Commnt No 02/01/21 20:54 Sodium 135 mmol/L (137-145) L 02/03/21 07:09 Potassium 4.0 mmol/L (3.6-5.0) 02/03/21 07:09 Chloride 102.9 mmol/L (98-107) 02/03/21 07:09 Carbon Dioxide 27 mmol/L (22-30) 02/03/21 07:09 Anion Gap 9 mmol/L 02/03/21 07:09 BUN 8 mg/dL (9-20) L 02/03/21 07:09 Creatinine 1.0 mg/dL (0.8-1.3) 02/03/21 07:09 Estimated GFR > 60 ml/min 02/03/21 07:09 BUN/Creatinine Ratio 8 % 02/03/21 07:09 Glucose 98 mg/dL (75-100) 02/03/21 07:09 Lactic Acid 0.50 mmol/L (0.7-2.0) L 02/02/21 00:41 Calcium 7.8 mg/dL (8.4-10.2) L 02/03/21 07:09 Total Bilirubin 0.30 mg/dL (0.1-1.2) 02/01/21 20:54 AST 23 units/L (5-40) 02/01/21 20:54 ALT 11 units/L (7-56) 02/01/21 20:54 Alkaline Phosphatase 55 units/L (35-129) 02/01/21 20:54 Total Protein 7.2 g/dL (6.3-8.2) 02/01/21 20:54 Albumin 3.3 g/dL (3.9-5) L 02/01/21 20:54 Albumin/Globulin Ratio 0.8 % 02/01/21 20:54 Urine Color Yellow (Yellow) 02/02/21 02:00 Urine Turbidity Slightly-cloudy (Clear) 02/02/21 02:00 Urine pH 6.0 (5.0-7.0) 02/02/21 02:00 Ur Specific [place] 1.011 (1.003-1.030) 02/02/21 02:00 Urine Protein 30 mg/dl mg/dL (Negative) 02/02/21 02:00 Urine Glucose (UA) Neg mg/dL (Negative) 02/02/21 02:00 Urine Ketones Neg mg/dL (Negative) 02/02/21 02:00 Urine Blood Neg (Negative) 02/02/21 02:00 Urine Nitrite Neg (Negative) 02/02/21 02:00 Urine Bilirubin Neg (Negative) 02/02/21 02:00 Urine Urobilinogen < 2.0 mg/dL (<2.0) 02/02/21 02:00 Ur Leukocyte Esterase Neg (Negative) 02/02/21 02:00 Urine WBC (Auto) 4.0 /HPF (0.0-6.0) 02/02/21 02:00 Urine RBC (Auto) 1.0 /HPF (0.0-6.0) 02/02/21 02:00 Urine Mucus Few /HPF 02/02/21 02:00 Urine Yeast (Budding) Few /HPF 02/02/21 02:00 Salicylates < 0.3 mg/dL (2.8-20.0) L 02/01/21 17:21 Urine Opiates Screen Presumptive negative 02/02/21 02:00 Urine Methadone Screen Presumptive negative 02/02/21 02:00 Acetaminophen 5.0 ug/mL (10.0-30.0) L 02/01/21 17:21 Ur Barbiturates Screen Presumptive negative 02/02/21 02:00 Ur Phencyclidine Scrn Presumptive negative 02/02/21 02:00 Ur Amphetamines Screen Presumptive negative 02/02/21 02:00 U Benzodiazepines Scrn Presumptive negative 02/02/21 02:00 Urine Cocaine Screen Presumptive negative 02/02/21 02:00 U Marijuana (THC) Screen Presumptive negative 02/02/21 02:00 Drugs of Abuse Note Disclamer 02/02/21 02:00 Coronavirus (PCR) Negative (Negative) 02/02/21 Unknown Microbiology: Microbiology 02/01/21 21:00 Peripheral/Venous Blood Culture - Preliminary NO GROWTH AFTER 4 DAYS 02/01/21 20:54 Peripheral/Venous Blood Culture - Preliminary NO GROWTH AFTER 4 DAYS [place]/IV: Voiding Method Urinal Active Medications - Current Medications Current Medications: Generic Name Dose Route Start Last Admin Trade Name Freq PRN Reason Stop Dose Admin Acetaminophen 650 mg 02/01/21 23:55 02/04/21 21:57 Acetaminophen 325 Mg Tab PO 650 mg Q4H PRN Administration Pain MILD(1-3)/Fever >100.5/STEPHENS Albuterol 2 puff 02/02/21 04:00 Albuterol 8.5 Gm Mdi Inhalation IH Q4HRT PRN Shortness Of Breath Alprazolam 0.5 mg 02/01/21 23:55 02/03/21 22:28 Alprazolam 0.5 Mg Tab PO 0.5 mg Q8H PRN Administration Anxiety Azithromycin 1,200 mg 02/03/21 16:00 02/03/21 18:04 Azithromycin 600 Mg Tab PO 1,200 mg Th@1600 YANELIS Administration Protocol Cephalexin 500 mg 02/06/21 12:00 Cephalexin 500 Mg Cap PO 02/16/21 06:01 Q6HR YANELIS Protocol Diphenhydramine HCl 25 mg 02/01/21 23:55 Diphenhydramine 50 Mg/Ml Vial IV Q6H PRN Itching/ allergic reaction Docusate Sodium 100 mg 02/02/21 10:00 02/06/21 10:52 Docusate Sodium 100 Mg Cap PO 100 mg BID YANELIS Administration Doxycycline Hyclate 100 mg 02/06/21 10:00 02/06/21 10:52 Doxycycline 100 Mg Cap PO 02/15/21 22:01 100 mg BID YANELIS Administration Protocol Famotidine 10 mg 02/02/21 10:00 02/06/21 10:52 Famotidine 10 Mg Tab PO 10 mg BID YANELIS Administration Heparin Sodium (Porcine) 5,000 unit 02/02/21 10:00 02/06/21 10:53 Heparin 5,000 Unit/1 Ml Vial SUB-Q 5,000 unit Q12HR YANELIS Administration Naloxone HCl 0.1 mg 02/01/21 22:55 Naloxone 0.4 Mg/1 Ml Inj IV Q2MIN PRN Res Rate </= 8 or 02 SAT < 92% Ondansetron HCl 4 mg 02/01/21 23:55 Ondansetron 4 Mg/2 Ml Inj IV Q6H PRN Nausea And Vomiting Oxycodone/Acetaminophen 1 tab 02/01/21 23:55 02/02/21 21:49 Oxycodone /Acetaminophen 5-325mg Tab PO 1 tab Q6H PRN Administration Pain, Moderate (4-6) Sodium Chloride 10 ml 02/02/21 10:00 02/06/21 10:53 Sodium Chloride 0.9% 10 Ml Flush Syringe IV Not Given BID YANELIS Sodium Chloride 10 ml 02/01/21 23:55 Sodium Chloride 0.9% 10 Ml Flush Syringe IV PRN PRN LINE FLUSH Trimethoprim/Sulfamethoxazole 1 each 02/02/21 13:00 02/06/21 10:53 Sulfamethoxazole/Trimethoprim 800/160mg Ds Tab PO 1 each Q24HR YANELIS Administration Protocol
[2021-02-06] MEDS: cephALEXin 500 MG CAP PO SCH ×2 (12:00→18:22)
[2021-02-06] MEDS ORDERED: diphenhydrAMINE 25 MG CAP PO PRN (15:00)
[2021-02-06] MEDS: AQUAPHOR OINTMENT TP SCH (19:31)
[2021-02-07] MEDS: ACETAMINOPHEN 325 MG TAB PO PRN (02:30)
[2021-02-07] MEDS: cephALEXin 500 MG CAP PO SCH ×4 (06:20→19:36)
[2021-02-07] MEDS: AQUAPHOR OINTMENT TP SCH ×2 (07:29→22:55)
[2021-02-07] MEDS: FAMOTIDINE 10 MG TAB PO SCH ×2 (09:27→22:53)
[2021-02-07] MEDS: HEPARIN 5,000 UNIT/1 ML VIAL SUB-Q SCH ×2 (09:28→22:54)
[2021-02-07] MEDS: DOXYCYCLINE 100 MG CAP PO SCH ×2 (09:28→22:53)
[2021-02-07] MEDS: SULFAMETHOXAZOLE/TRIMETHOPRIM 800/160MG DS TAB PO SCH (09:28)
[2021-02-07] MEDS: DOCUSATE SODIUM 100 MG CAP PO SCH ×2 (09:28→22:55)
--- NOTE | 2021-02-07 11:34 | Progress Note ---
Assessment and Plan SARS CoV2 PCR: negative 02/01/2021 blood culture: No growth 02/02/2021 serum cryptococcal antigen: Negative A/P: 45-year-old male with homelessness, HIV/AIDS, not on antiretroviral therapy, anxiety, asthma was admitted to the hospital with suicidal ideation: #Low-grade fever, leukopenia: Could be related to uncontrolled HIV/AIDS. Chest x-ray without any pneumonia, on room air. Evaluate for other occult opportunistic infections. #HIV/AIDS: not on ARVs. CD4 count of 3 in 01/2021. Patient states he was only recently diagnosed. He is not aware of any HIV related community resources. He has no home, no insurance, no money to pay for anything. #Suicidal ideation: Psychiatry cleared pt. #Multiple wounds, skin excoriations, suspected b/l LE cellulitis: Recommend wound care and empiric abx. Etiology of other skin lesions is unclear. Recs: Fungitell negative continue wound care Continue ceftriaxone, vancomycin Continue PO Bactrim DS 1 tab daily as prophylaxis Continue weekly PO azithromycin 1200 mg as prophylaxis (since it is unclear when he will actually begin ART, added Azithromycin prophylaxis) Okay to discharge on PO Keflex 500 mg QID plus doxycycline 100 mg BID x 10 days Will need medical social worker assistance in providing resources as well as transportation. Patient will need to follow-up at [facility] or [facility] guarded prognosis Angeline Blackmon MD [facility] O: [phone] F: [phone] Subjective Date of service: 02/07/21 Interval history: Afebrile, white count remains low at 2.6. Cultures remain negative. Objective - Exam Narrative Exam: Physical exam deferred to reduce risk of transmission of COVID-19. Please refer to primary team's note. - Constitutional Vitals: Vital Signs Temp Pulse Resp BP Pulse Ox 99.2 F 95 H 18 124/84 97 02/07/21 04:44 02/07/21 04:44 02/07/21 10:00 02/07/21 04:44 02/07/21 10:00 Temperature -Last 24 Hours Temperature 99.2 F Temperature 99.9 F Temperature 98.1 F Temperature 98.0 F - Labs CBC & Chem 7: 02/03/21 07:09 02/03/21 07:09
--- NOTE | 2021-02-07 12:08 | Discharge Summary ---
Providers - Providers Date of Admission: 02/01/21 21:42 Attending physician: HOMERO JOHNSON MD 02/01/21 17:03 Consult to Mental Health [CONS] Stat Reason For Exam: SI, auditory hallucinations 02/01/21 23:26 Consult to Physician [CONS] Routine Comment: Consulting Provider: LORENZA DOVE Physician Instructions: Reason For Exam: sepsis, PUI, AIDS 02/02/21 03:05 Consult to Wound/ET Nurse [CONS] Routine Reason For Exam: wound eval, scattered excoriations throughout body 02/03/21 15:03 Consult to Case Management [CONS] Routine Services Needed at Discharge: Digital Production Manager Notified:: CM Additional Physician Instructions: Community HIV resources including transportation to [facility] or [facility] 02/05/21 13:38 Physical Therapy Evaluation and Treat [CONS] Urgent Comment: Reason For Exam: DEBILITY Primary care physician: MARBLE POLISHER Hospitalization Reason for admission: Suicidal ideation Condition: Undetermined Hospital course: 45-year-old homeless male with history of AIDS, anxiety, and asthma who presented at [facility] ED with complaints of suicidal ideation. Patient states his has taken everything from him, and he is now homeless struggling to find food and fdc. Endorses feeling anxious, and depressed and wants to end his life. He states that he has voices in his head telling him to kill himself which started approximately a day ago. While in the ED patient was noted to have a fever and multiple excoriations throughout his body. Additionally he complains of generalized body pain. Endorses feeling itchy and as a result he continues to scratch his body, which has contributed to the multiple excoriation s noted. SIRS Suspected COVID-19 virus infection-ruled out Suicidal ideation -States he has voices in his head telling him to kill his self x1 day -Seen and evaluated in ED by psych -Pending admission to inpatient psych once medically cleared -Psych consult pending Anxiety -Reports history of severe anxiety -Xanax as needed Hypokalemia AIDS -Last known CD4 count of 3 -Not on antiretroviral meds -ID consulted, recs appreciated Multiple wounds -Scattered excoriations throughout body in various stages of wound healing -Wound care consult pending History of asthma -Albuterol as needed 02/02: Patient remains clinically stable, awaiting COVID19 TESTING RESULT. Psych input noted, cleared as patient denies suicidal ideation. Wound management. Anticipate discharge in am if COVID19 is negative. Replace K. 02/03: Patient still with low grade fever, Negative COVID 19 TEST, per ID, - Antibiotics switched to ceftriaxone -P.O. Bactrim ordered for prophylaxis -LDH, Fungitell, serum cryptococcal antigen ordered. Continue supportive care. 02/04: Patient seen and examined today no acute distress still with skin excoriation dry skin etiology of skin lesions is unclear if this needs to be evaluated outpatient. Patient was seen by ID and was recommended and treated with ceftriaxone and vancomycin also p.o. Bactrim DS 1 tab daily for prophylaxis and azithromycin 1200 mg as prophylaxis. (since it is unclear when he will actually begin ART, added Azithromycin prophylaxis) If he remains afebrile, may discharge on PO Keflex 500 mg QID plus doxycycline 100 mg BID x 10 days Patient's leukopenia was felt to be secondary to uncontrolled HIV/AIDS chest x- ray was without pneumonia and is on room air doing well no other options infection is noted. Patient was cleared by psychiatry for suicidal ideation. He tolerated ceftriaxone here just the reason why Keflex has been added to his medication regimen. I did discuss with social workers for assistance in providing him resources on for placement and also transportation Patient will need to follow-up at [facility] or [facility] guarded prognosis 02/05: Patient has been discharged awaiting placement. My anticipation is with the patient will go to personal halfway out of the fdc. He continues to refuse treatment while in house here. 02/06: Awaiting safe discharge. Continue supportive care, counselling provided to comply with treatment 02/07: Patient seen and examined resting comfortably Case management working with him have ordered a wheelchair unfortunately the company bringing it was going to take it to his previous address in [place] that has been corrected and I will bring it here for him to go to a fdc and then follow-up with his doctors as Disposition: HOME HEALTH CARE SERVICE Final Discharge Diagnosis (Prints w/discharge instructions): Suicidal ideation with debility Time spent for discharge: 35-minute Core Measure Documentation - Palliative Care Palliative Care/ Comfort Measures: Not Applicable - Core Measures Any of the following diagnoses?: none Exam - Physical Exam Narrative exam: General appearance: Present: No acute distress, alert and oriented 3, thin, adult male - EENT Eyes: Present: PERRL, EOM intact ENT: hearing intact, missing teeth, poor dentition. Temporal wasting - Neck Neck: Present: supple, normal ROM - Respiratory Respiratory effort: Non-labored Respiratory: Clear throughout - Cardiovascular Heart rate: 107 (bpm) Rhythm: Sinus tachycardia Heart Sounds: Present: S1 & S2. Absent: rub, click - Extremities Extremities: no ischemia, pulses intact, - Peripheral Assessment Peripheral Pulses: within normal limits - Abdominal General gastrointestinal: soft, non-tender, normal bowel sounds - Integumentary Integumentary: Present: warm, dry, multiple excoriations throughout the body in different stages of wound healing - Musculoskeletal Musculoskeletal: Able to move all extremities -Neurological Neurological: CN II-XII intact - Psychiatric Psychiatric: cooperative - Constitutional Vitals: Temp Pulse Resp BP Pulse Ox 98.0 F 90 18 123/72 100 02/07/21 11:33 02/07/21 11:33 02/07/21 11:33 02/07/21 11:33 02/07/21 11:33 Plan Activity: advance as tolerated, fall precautions Diet: low fat Special Instructions: record daily weights, record daily BP diary Follow up with: [facility] [Outside] - 7 Days [facility] [Outside] - 7 Days [facility] [Outside] - 7 Days PRIMARY [facility]ARE, [Primary Care Provider] - 3-5 Days Prescriptions: Sulfamethoxazole/Trimethoprim [Bactrim DS TAB] 1 each PO Q24HR #30 tablet Docusate Sodium [Colace CAP] 100 mg PO BID PRN #30 capsule PRN Reason: Constipation cephALEXin [Keflex] 500 mg PO Q6HR #40 capsule traMADoL [Ultram] 50 mg PO Q6HR PRN #14 tablet PRN Reason: Pain DOXYCYCLINE Hyclate [Vibramycin CAP] 100 mg PO Q12HR #20 capsule ALPRAZolam [Xanax TAB] 0.5 mg PO Q8H PRN #14 tablet PRN Reason: Anxiety Azithromycin [Zithromax TAB] 1,200 mg PO Th@1600 #8 tablet
[2021-02-08] MEDS: cephALEXin 500 MG CAP PO SCH ×4 (00:05→18:35)
[2021-02-08] MEDS: AQUAPHOR OINTMENT TP SCH ×2 (04:13→16:28)
[2021-02-08] MEDS: HEPARIN 5,000 UNIT/1 ML VIAL SUB-Q SCH ×2 (09:43→22:06)
[2021-02-08] MEDS: DOXYCYCLINE 100 MG CAP PO SCH ×2 (09:43→22:08)
[2021-02-08] MEDS: DOCUSATE SODIUM 100 MG CAP PO SCH ×2 (09:43→22:06)
[2021-02-08] MEDS: SULFAMETHOXAZOLE/TRIMETHOPRIM 800/160MG DS TAB PO SCH (09:43)
[2021-02-08] MEDS: FAMOTIDINE 10 MG TAB PO SCH ×2 (09:43→22:30)
--- NOTE | 2021-02-08 12:05 | Progress Note ---
Assessment and Plan SARS CoV2 PCR: negative 02/01/2021 blood culture: No growth 02/02/2021 serum cryptococcal antigen: Negative A/P: 45-year-old male with homelessness, HIV/AIDS, not on antiretroviral therapy, anxiety, asthma was admitted to the hospital with suicidal ideation: #Low-grade fever, leukopenia: Could be related to uncontrolled HIV/AIDS. Chest x-ray without any pneumonia, on room air. Evaluate for other occult opportunistic infections. #HIV/AIDS: not on ARVs. CD4 count of 3 in 01/2021. Patient states he was only recently diagnosed. He is not aware of any HIV related community resources. He has no home, no insurance, no money to pay for anything. #Suicidal ideation: Psychiatry cleared pt. #Multiple wounds, skin excoriations, suspected b/l LE cellulitis: Recommend wound care and empiric abx. Etiology of other skin lesions is unclear. Recs: Fungitell negative continue wound care Continue ceftriaxone, vancomycin Continue PO Bactrim DS 1 tab daily as prophylaxis Continue weekly PO azithromycin 1200 mg as prophylaxis (since it is unclear when he will actually begin ART, added Azithromycin prophylaxis) Okay to discharge on PO Keflex 500 mg QID plus doxycycline 100 mg BID x 10 days Will need child protective services social worker assistance in providing resources as well as transportation. Patient will need to follow-up at [facility] or [facility] guarded prognosis Angeline Blackmon MD [facility] O: [phone] F: [phone] Subjective Date of service: 02/08/21 Interval history: Afebrile, white count 2.6. Objective - Exam Narrative Exam: Physical exam deferred to reduce risk of transmission of COVID-19. Please refer to primary team's note. - Constitutional Vitals: Vital Signs Temp Pulse Resp BP Pulse Ox 99.1 F 97 H 20 124/81 100 02/08/21 05:31 02/08/21 05:31 02/08/21 05:31 02/08/21 05:31 02/08/21 05:31 Temperature -Last 24 Hours Temperature 99.1 F Temperature 98.9 F Temperature 98.6 F - Labs CBC & Chem 7: 02/03/21 07:09 02/03/21 07:09
--- NOTE | 2021-02-08 18:45 | Progress Note ---
Assessment and Plan Assessment and plan: 45-year-old homeless male with history of AIDS, anxiety, and asthma who presented at [facility] ED with complaints of suicidal ideation. Patient states his has taken everything from him, and he is now homeless struggling to find food and care home. Endorses feeling anxious, and depressed and wants to end his life. He states that he has voices in his head telling him to kill himself which started approximately a day ago. While in the ED patient was noted to have a fever and multiple excoriations throughout his body. Additionally he complains of generalized body pain. Endorses feeling itchy and as a result he continues to scratch his body, which has contributed to the multiple excoriations noted. SIRS Suspected COVID-19 virus infection-ruled out Suicidal ideation -States he has voices in his head telling him to kill his self x1 day -Seen and evaluated in ED by psych -Pending admission to inpatient psych once medically cleared -Psych consult pending Anxiety -Reports history of severe anxiety -Xanax as needed Hypokalemia AIDS -Last known CD4 count of 3 -Not on antiretroviral meds -ID consulted, recs appreciated Multiple wounds -Scattered excoriations throughout body in various stages of wound healing -Wound care consult pending History of asthma -Albuterol as needed Discharge planning; Patient is stable for discharge however has multiple social issues homeless Case management assisting with 02/02: Patient remains clinically stable, awaiting COVID19 TESTING RESULT. Psych input noted, cleared as patient denies suicidal ideation. Wound management. Anticipate discharge in am if COVID19 is negative. Replace K. 02/03: Patient still with low grade fever, Negative COVID 19 TEST, per ID, - Antibiotics switched to ceftriaxone -P.O. Bactrim ordered for prophylaxis -LDH, Fungitell, serum cryptococcal antigen ordered. Continue supportive care. 02/04: Patient seen and examined today no acute distress still with skin excoriation dry skin etiology of skin lesions is unclear if this needs to be evaluated outpatient. Patient was seen by ID and was recommended and treated with ceftriaxone and vancomycin also p.o. Bactrim DS 1 tab daily for prophylaxis and azithromycin 1200 mg as prophylaxis. (since it is unclear when he will actually begin ART, added Azithromycin prophylaxis) If he remains afebrile, may discharge on PO Keflex 500 mg QID plus doxycycline 100 mg BID x 10 days Patient's leukopenia was felt to be secondary to uncontrolled HIV/AIDS chest x- ray was without pneumonia and is on room air doing well no other options infection is noted. Patient was cleared by psychiatry for suicidal ideation. He tolerated ceftriaxone here just the reason why Keflex has been added to his medication regimen. I did discuss with social workers for assistance in providing him resources on for placement and also transportation Patient will need to follow-up at [facility] or [facility] guarded prognosis 02/05: Patient has been discharged awaiting placement. My anticipation is with the patient will go to personal [facility] out of the care home. He continues to refuse treatment while in house here. 02/06: Awaiting safe discharge. Continue supportive care, counselling provided to comply with treatment 02/07: Patient seen and examined resting comfortably Case management working with him have ordered a wheelchair unfortunately the company bringing it was going to take it to his previous address in [place] that has been corrected and I will bring it here for him to go to a care home and then follow-up with his doctors as 02/08/2021; patient is medically stable for discharge Multiple social issues, homeless, care home placement History Interval history: I have seen and examined the patient at the bedside Patient's chart and medications reviewed Patient patient says he does not feel good Hospitalist Physical - Constitutional Vitals: Temp Pulse Resp BP Pulse Ox 100.6 F H 110 H 18 141/87 100 02/08/21 15:46 02/08/21 15:46 02/08/21 15:46 02/08/21 15:46 02/08/21 15:46 General appearance: Present: no acute distress, well-nourished - EENT Eyes: Present: PERRL, EOM intact - Neck Neck: Present: supple, normal ROM - Respiratory Respiratory effort: normal Respiratory: bilateral: diminished, negative: rales, rhonchi, wheezing - Cardiovascular Rhythm: regular Heart Sounds: Present: S1 & S2 - Extremities Extremities: no ischemia, No edema - Abdominal General gastrointestinal: soft, non-tender, non-distended, normal bowel sounds - Integumentary Integumentary: Present: clear, warm - Psychiatric Psychiatric: appropriate mood/affect, cooperative - Neurologic Neurologic: CNII-XII intact, moves all extremities Results - Labs CBC & Chem 7: 02/10/21 Unknown 02/10/21 Unknown Labs: Laboratory Last Values WBC 2.6 K/mm3 (4.5-11.0) L 02/03/21 07:09 RBC 2.64 M/mm3 (3.65-5.03) L 02/03/21 07:09 Hgb 7.4 gm/dl (11.8-15.2) L 02/03/21 07:09 Hct 22.2 % (35.5-45.6) L 02/03/21 07:09 MCV 84 fl (84-94) 02/03/21 07:09 MCH 28 pg (28-32) 02/03/21 07:09 MCHC 33 % (32-34) 02/03/21 07:09 RDW 17.1 % (13.2-15.2) H 02/03/21 07:09 Plt Count 214 K/mm3 (140-440) 02/03/21 07:09 [place] % (Auto) Training Development Director 02/01/21 20:54 Add Manual Diff Complete 02/01/21 20:54 Total Counted 100 02/01/21 20:54 Seg Neuts % (Manual) 81.0 % (40.0-70.0) H 02/01/21 20:54 Lymphocytes % (Manual) 13.0 % (13.4-35.0) L 02/01/21 20:54 Monocytes % (Manual) 6.0 % (0.0-7.3) 02/01/21 20:54 Nucleated RBC % Not Reportable 02/01/21 20:54 Seg Neutrophils # Man 2.4 K/mm3 (1.8-7.7) 02/01/21 20:54 Band Neutrophils # 0.0 K/mm3 02/01/21 20:54 Lymphocytes # (Manual) 0.4 K/mm3 (1.2-5.4) L 02/01/21 20:54 Abs React Lymphs (Man) 0.0 K/mm3 02/01/21 20:54 Monocytes # (Manual) 0.2 K/mm3 (0.0-0.8) 02/01/21 20:54 Eosinophils # (Manual) 0.0 K/mm3 (0.0-0.4) 02/01/21 20:54 Basophils # (Manual) 0.0 K/mm3 (0.0-0.1) 02/01/21 20:54 Metamyelocytes # 0.0 K/mm3 02/01/21 20:54 Myelocytes # 0.0 K/mm3 02/01/21 20:54 Promyelocytes # 0.0 K/mm3 02/01/21 20:54 Blast Cells # 0.0 K/mm3 02/01/21 20:54 WBC Morphology Not Reportable 02/01/21 20:54 Hypersegmented Neuts Not Reportable 02/01/21 20:54 Hyposegmented Neuts Not Reportable 02/01/21 20:54 Hypogranular Neuts Not Reportable 02/01/21 20:54 Smudge Cells Not Reportable 02/01/21 20:54 Toxic Granulation Not Reportable 02/01/21 20:54 Toxic Vacuolation Not Reportable 02/01/21 20:54 Dohle Bodies Not Reportable 02/01/21 20:54 Pelger-Huet Anomaly Not Reportable 02/01/21 20:54 Steffi Rods Not Reportable 02/01/21 20:54 Platelet Estimate Consistent w auto 02/01/21 20:54 Clumped Platelets Not Reportable 02/01/21 20:54 Plt Clumps, EDTA Not Reportable 02/01/21 20:54 Large Platelets Not Reportable 02/01/21 20:54 Giant Platelets Not Reportable 02/01/21 20:54 Platelet Satelliting Not Reportable 02/01/21 20:54 Plt Morphology Comment Not Reportable 02/01/21 20:54 RBC Morphology Not Reportable 02/01/21 20:54 Dimorphic RBCs Not Reportable 02/01/21 20:54 Polychromasia Not Reportable 02/01/21 20:54 Hypochromasia Not Reportable 02/01/21 20:54 Poikilocytosis Few 02/01/21 20:54 Anisocytosis Not Reportable 02/01/21 20:54 Microcytosis Not Reportable 02/01/21 20:54 Macrocytosis Not Reportable 02/01/21 20:54 Spherocytes Not Reportable 02/01/21 20:54 Pappenheimer Bodies Not Reportable 02/01/21 20:54 Sickle Cells Not Reportable 02/01/21 20:54 Target Cells Not Reportable 02/01/21 20:54 Tear Drop Cells Few 02/01/21 20:54 Ovalocytes 1+ 02/01/21 20:54 Helmet Cells Not Reportable 02/01/21 20:54 Hackett-Riner Bodies Not Reportable 02/01/21 20:54 [place] Rings Not Reportable 02/01/21 20:54 [place] Cells Not Reportable 02/01/21 20:54 Bite Cells Not Reportable 02/01/21 20:54 Crenated Cell Not Reportable 02/01/21 20:54 Elliptocytes Rare 02/01/21 20:54 Acanthocytes (Spur) Not Reportable 02/01/21 20:54 Rouleaux Not Reportable 02/01/21 20:54 Hemoglobin C Crystals Not Reportable 02/01/21 20:54 Schistocytes Few 02/01/21 20:54 Malaria parasites Not Reportable 02/01/21 20:54 Josue Bodies Not Reportable 02/01/21 20:54 Hem Pathologist Commnt No 02/01/21 20:54 Sodium 135 mmol/L (137-145) L 02/03/21 07:09 Potassium 4.0 mmol/L (3.6-5.0) 02/03/21 07:09 Chloride 102.9 mmol/L (98-107) 02/03/21 07:09 Carbon Dioxide 27 mmol/L (22-30) 02/03/21 07:09 Anion Gap 9 mmol/L 02/03/21 07:09 BUN 8 mg/dL (9-20) L 02/03/21 07:09 Creatinine 1.0 mg/dL (0.8-1.3) 02/03/21 07:09 Estimated GFR > 60 ml/min 02/03/21 07:09 BUN/Creatinine Ratio 8 % 02/03/21 07:09 Glucose 98 mg/dL (75-100) 02/03/21 07:09 Lactic Acid 0.50 mmol/L (0.7-2.0) L 02/02/21 00:41 Calcium 7.8 mg/dL (8.4-10.2) L 02/03/21 07:09 Total Bilirubin 0.30 mg/dL (0.1-1.2) 02/01/21 20:54 AST 23 units/L (5-40) 02/01/21 20:54 ALT 11 units/L (7-56) 02/01/21 20:54 Alkaline Phosphatase 55 units/L (35-129) 02/01/21 20:54 Total Protein 7.2 g/dL (6.3-8.2) 02/01/21 20:54 Albumin 3.3 g/dL (3.9-5) L 02/01/21 20:54 Albumin/Globulin Ratio 0.8 % 02/01/21 20:54 Urine Color Yellow (Yellow) 02/02/21 02:00 Urine Turbidity Slightly-cloudy (Clear) 02/02/21 02:00 Urine pH 6.0 (5.0-7.0) 02/02/21 02:00 Ur Specific [place] 1.011 (1.003-1.030) 02/02/21 02:00 Urine Protein 30 mg/dl mg/dL (Negative) 02/02/21 02:00 Urine Glucose (UA) Neg mg/dL (Negative) 02/02/21 02:00 Urine Ketones Neg mg/dL (Negative) 02/02/21 02:00 Urine Blood Neg (Negative) 02/02/21 02:00 Urine Nitrite Neg (Negative) 02/02/21 02:00 Urine Bilirubin Neg (Negative) 02/02/21 02:00 Urine Urobilinogen < 2.0 mg/dL (<2.0) 02/02/21 02:00 Ur Leukocyte Esterase Neg (Negative) 02/02/21 02:00 Urine WBC (Auto) 4.0 /HPF (0.0-6.0) 02/02/21 02:00 Urine RBC (Auto) 1.0 /HPF (0.0-6.0) 02/02/21 02:00 Urine Mucus Few /HPF 02/02/21 02:00 Urine Yeast (Budding) Few /HPF 02/02/21 02:00 Salicylates < 0.3 mg/dL (2.8-20.0) L 02/01/21 17:21 Urine Opiates Screen Presumptive negative 02/02/21 02:00 Urine Methadone Screen Presumptive negative 02/02/21 02:00 Acetaminophen 5.0 ug/mL (10.0-30.0) L 02/01/21 17:21 Ur Barbiturates Screen Presumptive negative 02/02/21 02:00 Ur Phencyclidine Scrn Presumptive negative 02/02/21 02:00 Ur Amphetamines Screen Presumptive negative 02/02/21 02:00 U Benzodiazepines Scrn Presumptive negative 02/02/21 02:00 Urine Cocaine Screen Presumptive negative 02/02/21 02:00 U Marijuana (THC) Screen Presumptive negative 02/02/21 02:00 Drugs of Abuse Note Disclamer 02/02/21 02:00 Coronavirus (PCR) Negative (Negative) 02/02/21 Unknown Miscellaneous Test Flexitest 1 02/02/21 Unknown North/IV: Voiding Method Bedside Commode Active Medications - Current Medications Current Medications: Generic Name Dose Route Start Last Admin Trade Name Freq PRN Reason Stop Dose Admin Acetaminophen 650 mg 02/01/21 23:55 02/07/21 02:30 Acetaminophen 325 Mg Tab PO 650 mg Q4H PRN Administration Pain MILD(1-3)/Fever >100.5/STEPHENS Albuterol 2 puff 02/02/21 04:00 Albuterol 8.5 Gm Mdi Inhalation IH Q4HRT PRN Shortness Of Breath Alprazolam 0.5 mg 02/01/21 23:55 02/03/21 22:28 Alprazolam 0.5 Mg Tab PO 0.5 mg Q8H PRN Administration Anxiety Azithromycin 1,200 mg 02/03/21 16:00 02/03/21 18:04 Azithromycin 600 Mg Tab PO 1,200 mg Th@1600 YANELIS Administration Protocol Cephalexin 500 mg 02/06/21 12:00 02/08/21 18:35 Cephalexin 500 Mg Cap PO 02/16/21 06:01 500 mg Q6HR YANELIS Administration Protocol Diphenhydramine HCl 25 mg 02/06/21 15:00 02/06/21 22:57 Diphenhydramine 25 Mg Cap PO 25 mg Q6H PRN Administration Itching Docusate Sodium 100 mg 02/02/21 10:00 02/08/21 09:43 Docusate Sodium 100 Mg Cap PO 100 mg BID YANELIS Administration Doxycycline Hyclate 100 mg 02/06/21 10:00 02/08/21 09:43 Doxycycline 100 Mg Cap PO 02/15/21 22:01 100 mg BID YANELIS Administration Protocol Famotidine 10 mg 02/02/21 10:00 02/08/21 09:43 Famotidine 10 Mg Tab PO 10 mg BID YANELIS Administration Heparin Sodium (Porcine) 5,000 unit 02/02/21 10:00 02/08/21 09:43 Heparin 5,000 Unit/1 Ml Vial SUB-Q 5,000 unit Q12HR YANELIS Administration Hydrophilic Ointment 1 applic 02/06/21 16:00 02/08/21 16:28 Aquaphor Ointment TP 1 applic Q12H YANELIS Administration Naloxone HCl 0.1 mg 02/01/21 22:55 Naloxone 0.4 Mg/1 Ml Inj IV Q2MIN PRN Res Rate </= 8 or 02 SAT < 92% Ondansetron HCl 4 mg 02/01/21 23:55 Ondansetron 4 Mg/2 Ml Inj IV Q6H PRN Nausea And Vomiting Oxycodone/Acetaminophen 1 tab 02/01/21 23:55 02/02/21 21:49 Oxycodone /Acetaminophen 5-325mg Tab PO 1 tab Q6H PRN Administration Pain, Moderate (4-6) Sodium Chloride 10 ml 02/02/21 10:00 02/08/21 09:43 Sodium Chloride 0.9% 10 Ml Flush Syringe IV 10 ml BID YANELIS Administration Sodium Chloride 10 ml 02/01/21 23:55 Sodium Chloride 0.9% 10 Ml Flush Syringe IV PRN PRN LINE FLUSH Trimethoprim/Sulfamethoxazole 1 each 02/02/21 13:00 02/08/21 09:43 Sulfamethoxazole/Trimethoprim 800/160mg Ds Tab PO 1 each Q24HR YANELIS Administration Protocol
[2021-02-08] MEDS: ACETAMINOPHEN 325 MG TAB PO PRN (23:13)
[2021-02-09] MEDS: cephALEXin 500 MG CAP PO SCH ×5 (05:14→23:51)
[2021-02-09] MEDS: AQUAPHOR OINTMENT TP SCH ×2 (05:14→17:53)
--- NOTE | 2021-02-09 07:35 | Progress Note ---
Assessment and Plan Assessment and plan: --Suicidal thoughts and ideation; Nurse reports that patient expressed suicidal thoughts and plans Patient was evaluated for suicidal ideation and later cleared for discharge We will request psych for reevaluation --Fever; T-max last 24 hours is 103.1F, patient is already on antibiotics, ID following [place] PCR test is negative, chest x-ray on 02/01/2021 - for pneumonia Set of cultures are negative 02/01/2021, cryptococcal antigen negative 02/02/2021 We will check new chest x-ray to rule out pneumonia Send new set of urine and blood cultures, ID following --Negative COVID-19 test --HIV AIDS; noncompliant with antiretrovirals, ID following --History of asthma; patient is saturating well on room air, Albuterol as needed --Multiple superficial wounds; wound care --Discharge planning; patient has multiple social issues Homeless, no resources, case management and social services coordinator trying to secure A place in the local shelters --Requested psych reevaluation today --1013 status/suicidal watch Hold discharge at this point We will closely monitor the patient and adjust management as needed Follow-up psych reevaluation and recommendations before school babysitter at the bedside Brief history and hospital course: 45-year-old homeless male with history of AIDS, anxiety, and asthma who presented at [facility] with complaints of suicidal ideation. Patient states his has taken everything from him, and he is now homeless struggling to find food and assisted. Endorses feeling anxious, and depressed and wants to end his life. He states that he has voices in his head telling him to kill himself which started approximately a day ago. While in the ED patient was noted to have a fever and multiple excoriations throughout his body. Additionally he complains of generalized body pain. Endorses feeling itchy and as a result he continues to scratch his body, which has contributed to the multiple excoriations noted. 02/02: Patient remains clinically stable, awaiting COVID19 TESTING RESULT. Psych input noted, cleared as patient denies suicidal ideation. Wound management. Anticipate discharge in am if COVID19 is negative. Replace K. 02/03: Patient still with low grade fever, Negative COVID 19 TEST, per ID, - Antibiotics switched to ceftriaxone -P.O. Bactrim ordered for prophylaxis -LDH, Fungitell, serum cryptococcal antigen ordered. Continue supportive care. 02/04: Patient seen and examined today no acute distress still with skin excoriation dry skin etiology of skin lesions is unclear if this needs to be evaluated outpatient. Patient was seen by ID and was recommended and treated with ceftriaxone and vancomycin also p.o. Bactrim DS 1 tab daily for prophylaxis and azithromycin 1200 mg as prophylaxis. (since it is unclear when he will actually begin ART, added Azithromycin prophylaxis) If he remains afebrile, may discharge on PO Keflex 500 mg QID plus doxycycline 100 mg BID x 10 days Patient's leukopenia was felt to be secondary to uncontrolled HIV/AIDS chest x- ray was without pneumonia and is on room air doing well no other options infection is noted. Patient was cleared by psychiatry for suicidal ideation. He tolerated ceftriaxone here just the reason why Keflex has been added to his medication regimen. I did discuss with social workers for assistance in providing him resources on for placement and also transportation Patient will need to follow-up at [facility] or [facility] guarded prognosis 02/05: Patient has been discharged awaiting placement. My anticipation is with the patient will go to personal usp out of the assisted. He continues to refuse treatment while in house here. 02/06: Awaiting safe discharge. Continue supportive care, counselling provided to comply with treatment 02/07: Patient seen and examined resting comfortably Case management working with him have ordered a wheelchair unfortunately the company bringing it was going to take it to his previous address in [place] that has been corrected and I will bring it here for him to go to a assisted and then follow-up with his doctors as 02/08/2021; patient is medically stable for discharge Multiple social issues, homeless, assisted placement 02/09/2021; patient reported to the nurse that he has full suicidal thoughts and ideation Patient had similar symptoms at the time of admission, psych has evaluated and cleared for discharge We will place him 1013 again and reconsult psych, hold discharge at this point Follow psych recommendations History Interval history: Patient was febrile, the whole of last night T-max within last 24 hours was 103.1 F last night at 9 PM, this morning patient is afebrile. Nurse also reports that patient was having suicidal thoughts, and try to contact crisis center, place him on 1013 status/suicidal watch I have seen the patient this morning and examined at the bedside Patient is not very cooperative, reports that he is very depressed Afebrile this morning Hospitalist Physical - Constitutional Vitals: Temp Pulse Resp BP Pulse Ox 98.8 F 94 H 18 108/68 100 02/09/21 04:44 02/09/21 04:44 02/09/21 04:44 02/09/21 04:44 02/09/21 04:44 General appearance: Present: mild distress, well-nourished, other (Depressed) - EENT Eyes: Present: PERRL, EOM intact - Neck Neck: Present: supple, normal ROM - Respiratory Respiratory effort: normal Respiratory: bilateral: diminished, negative: rales, rhonchi, wheezing - Cardiovascular Rhythm: regular Heart Sounds: Present: S1 & S2 - Extremities Extremities: no ischemia, No edema - Abdominal General gastrointestinal: soft, non-tender, non-distended, normal bowel sounds - Integumentary Integumentary: Present: clear, warm - Psychiatric Psychiatric: appropriate mood/affect, cooperative - Neurologic Neurologic: CNII-XII intact, moves all extremities Results - Labs CBC & Chem 7: 02/03/21 07:09 02/03/21 07:09 Labs: Laboratory Last Values WBC 2.6 K/mm3 (4.5-11.0) L 02/03/21 07:09 RBC 2.64 M/mm3 (3.65-5.03) L 02/03/21 07:09 Hgb 7.4 gm/dl (11.8-15.2) L 02/03/21 07:09 Hct 22.2 % (35.5-45.6) L 02/03/21 07:09 MCV 84 fl (84-94) 02/03/21 07:09 MCH 28 pg (28-32) 02/03/21 07:09 MCHC 33 % (32-34) 02/03/21 07:09 RDW 17.1 % (13.2-15.2) H 02/03/21 07:09 Plt Count 214 K/mm3 (140-440) 02/03/21 07:09 [place] % (Auto) Civil Transportation Engineer 02/01/21 20:54 Add Manual Diff Complete 02/01/21 20:54 Total Counted 100 02/01/21 20:54 Seg Neuts % (Manual) 81.0 % (40.0-70.0) H 02/01/21 20:54 Lymphocytes % (Manual) 13.0 % (13.4-35.0) L 02/01/21 20:54 Monocytes % (Manual) 6.0 % (0.0-7.3) 02/01/21 20:54 Nucleated RBC % Not Reportable 02/01/21 20:54 Seg Neutrophils # Man 2.4 K/mm3 (1.8-7.7) 02/01/21 20:54 Band Neutrophils # 0.0 K/mm3 02/01/21 20:54 Lymphocytes # (Manual) 0.4 K/mm3 (1.2-5.4) L 02/01/21 20:54 Abs React Lymphs (Man) 0.0 K/mm3 02/01/21 20:54 Monocytes # (Manual) 0.2 K/mm3 (0.0-0.8) 02/01/21 20:54 Eosinophils # (Manual) 0.0 K/mm3 (0.0-0.4) 02/01/21 20:54 Basophils # (Manual) 0.0 K/mm3 (0.0-0.1) 02/01/21 20:54 Metamyelocytes # 0.0 K/mm3 02/01/21 20:54 Myelocytes # 0.0 K/mm3 02/01/21 20:54 Promyelocytes # 0.0 K/mm3 02/01/21 20:54 Blast Cells # 0.0 K/mm3 02/01/21 20:54 WBC Morphology Not Reportable 02/01/21 20:54 Hypersegmented Neuts Not Reportable 02/01/21 20:54 Hyposegmented Neuts Not Reportable 02/01/21 20:54 Hypogranular Neuts Not Reportable 02/01/21 20:54 Smudge Cells Not Reportable 02/01/21 20:54 Toxic Granulation Not Reportable 02/01/21 20:54 Toxic Vacuolation Not Reportable 02/01/21 20:54 Dohle Bodies Not Reportable 02/01/21 20:54 Pelger-Huet Anomaly Not Reportable 02/01/21 20:54 Steffi Rods Not Reportable 02/01/21 20:54 Platelet Estimate Consistent w auto 02/01/21 20:54 Clumped Platelets Not Reportable 02/01/21 20:54 Plt Clumps, EDTA Not Reportable 02/01/21 20:54 Large Platelets Not Reportable 02/01/21 20:54 Giant Platelets Not Reportable 02/01/21 20:54 Platelet Satelliting Not Reportable 02/01/21 20:54 Plt Morphology Comment Not Reportable 02/01/21 20:54 RBC Morphology Not Reportable 02/01/21 20:54 Dimorphic RBCs Not Reportable 02/01/21 20:54 Polychromasia Not Reportable 02/01/21 20:54 Hypochromasia Not Reportable 02/01/21 20:54 Poikilocytosis Few 02/01/21 20:54 Anisocytosis Not Reportable 02/01/21 20:54 Microcytosis Not Reportable 02/01/21 20:54 Macrocytosis Not Reportable 02/01/21 20:54 Spherocytes Not Reportable 02/01/21 20:54 Pappenheimer Bodies Not Reportable 02/01/21 20:54 Sickle Cells Not Reportable 02/01/21 20:54 Target Cells Not Reportable 02/01/21 20:54 Tear Drop Cells Few 02/01/21 20:54 Ovalocytes 1+ 02/01/21 20:54 Helmet Cells Not Reportable 02/01/21 20:54 [place] Bodies Not Reportable 02/01/21 20:54 [place] Rings Not Reportable 02/01/21 20:54 Praveena Cells Not Reportable 02/01/21 20:54 Bite Cells Not Reportable 02/01/21 20:54 Crenated Cell Not Reportable 02/01/21 20:54 Elliptocytes Rare 02/01/21 20:54 Acanthocytes (Spur) Not Reportable 02/01/21 20:54 Rouleaux Not Reportable 02/01/21 20:54 Hemoglobin C Crystals Not Reportable 02/01/21 20:54 Schistocytes Few 02/01/21 20:54 Malaria parasites Not Reportable 02/01/21 20:54 Josue Bodies Not Reportable 02/01/21 20:54 Hem Pathologist Commnt No 02/01/21 20:54 Sodium 135 mmol/L (137-145) L 02/03/21 07:09 Potassium 4.0 mmol/L (3.6-5.0) 02/03/21 07:09 Chloride 102.9 mmol/L (98-107) 02/03/21 07:09 Carbon Dioxide 27 mmol/L (22-30) 02/03/21 07:09 Anion Gap 9 mmol/L 02/03/21 07:09 BUN 8 mg/dL (9-20) L 02/03/21 07:09 Creatinine 1.0 mg/dL (0.8-1.3) 02/03/21 07:09 Estimated GFR > 60 ml/min 02/03/21 07:09 BUN/Creatinine Ratio 8 % 02/03/21 07:09 Glucose 98 mg/dL (75-100) 02/03/21 07:09 Lactic Acid 0.50 mmol/L (0.7-2.0) L 02/02/21 00:41 Calcium 7.8 mg/dL (8.4-10.2) L 02/03/21 07:09 Total Bilirubin 0.30 mg/dL (0.1-1.2) 02/01/21 20:54 AST 23 units/L (5-40) 02/01/21 20:54 ALT 11 units/L (7-56) 02/01/21 20:54 Alkaline Phosphatase 55 units/L (35-129) 02/01/21 20:54 Total Protein 7.2 g/dL (6.3-8.2) 02/01/21 20:54 Albumin 3.3 g/dL (3.9-5) L 02/01/21 20:54 Albumin/Globulin Ratio 0.8 % 02/01/21 20:54 Urine Color Yellow (Yellow) 02/02/21 02:00 Urine Turbidity Slightly-cloudy (Clear) 02/02/21 02:00 Urine pH 6.0 (5.0-7.0) 02/02/21 02:00 Ur Specific [place] 1.011 (1.003-1.030) 02/02/21 02:00 Urine Protein 30 mg/dl mg/dL (Negative) 02/02/21 02:00 Urine Glucose (UA) Neg mg/dL (Negative) 02/02/21 02:00 Urine Ketones Neg mg/dL (Negative) 02/02/21 02:00 Urine Blood Neg (Negative) 02/02/21 02:00 Urine Nitrite Neg (Negative) 02/02/21 02:00 Urine Bilirubin Neg (Negative) 02/02/21 02:00 Urine Urobilinogen < 2.0 mg/dL (<2.0) 02/02/21 02:00 Ur Leukocyte Esterase Neg (Negative) 02/02/21 02:00 Urine WBC (Auto) 4.0 /HPF (0.0-6.0) 02/02/21 02:00 Urine RBC (Auto) 1.0 /HPF (0.0-6.0) 02/02/21 02:00 Urine Mucus Few /HPF 02/02/21 02:00 Urine Yeast (Budding) Few /HPF 02/02/21 02:00 Salicylates < 0.3 mg/dL (2.8-20.0) L 02/01/21 17:21 Urine Opiates Screen Presumptive negative 02/02/21 02:00 Urine Methadone Screen Presumptive negative 02/02/21 02:00 Acetaminophen 5.0 ug/mL (10.0-30.0) L 02/01/21 17:21 Ur Barbiturates Screen Presumptive negative 02/02/21 02:00 Ur Phencyclidine Scrn Presumptive negative 02/02/21 02:00 Ur Amphetamines Screen Presumptive negative 02/02/21 02:00 U Benzodiazepines Scrn Presumptive negative 02/02/21 02:00 Urine Cocaine Screen Presumptive negative 02/02/21 02:00 U Marijuana (THC) Screen Presumptive negative 02/02/21 02:00 Drugs of Abuse Note Disclamer 02/02/21 02:00 Coronavirus (PCR) Negative (Negative) 02/02/21 Unknown Miscellaneous Test Flexitest 1 02/02/21 Unknown North/IV: Voiding Method Urinal Active Medications - Current Medications Current Medications: Generic Name Dose Route Start Last Admin Trade Name Freq PRN Reason Stop Dose Admin Acetaminophen 650 mg 02/01/21 23:55 02/08/21 23:13 Acetaminophen 325 Mg Tab PO 650 mg Q4H PRN Administration Pain MILD(1-3)/Fever >100.5/STEPHENS Albuterol 2 puff 02/02/21 04:00 Albuterol 8.5 Gm Mdi Inhalation IH Q4HRT PRN Shortness Of Breath Alprazolam 0.5 mg 02/01/21 23:55 02/03/21 22:28 Alprazolam 0.5 Mg Tab PO 0.5 mg Q8H PRN Administration Anxiety Azithromycin 1,200 mg 02/03/21 16:00 02/03/21 18:04 Azithromycin 600 Mg Tab PO 1,200 mg Th@1600 YANELIS Administration Protocol Cephalexin 500 mg 02/06/21 12:00 02/09/21 06:04 Cephalexin 500 Mg Cap PO 02/16/21 06:01 500 mg Q6HR YANELIS Administration Protocol Diphenhydramine HCl 25 mg 02/06/21 15:00 02/06/21 22:57 Diphenhydramine 25 Mg Cap PO 25 mg Q6H PRN Administration Itching Docusate Sodium 100 mg 02/02/21 10:00 02/08/21 22:06 Docusate Sodium 100 Mg Cap PO 100 mg BID YANELIS Administration Doxycycline Hyclate 100 mg 02/06/21 10:00 02/08/21 22:08 Doxycycline 100 Mg Cap PO 02/15/21 22:01 100 mg BID YANELIS Administration Protocol Famotidine 10 mg 02/02/21 10:00 02/08/21 22:30 Famotidine 10 Mg Tab PO 10 mg BID YANELIS Administration Heparin Sodium (Porcine) 5,000 unit 02/02/21 10:00 02/08/21 22:06 Heparin 5,000 Unit/1 Ml Vial SUB-Q 5,000 unit Q12HR [facility] Administration Hydrophilic Ointment 1 applic 02/06/21 16:00 02/09/21 05:14 Aquaphor Ointment TP Not Given Q12H [facility] Naloxone HCl 0.1 mg 02/01/21 22:55 Naloxone 0.4 Mg/1 Ml Inj IV Q2MIN PRN Res Rate </= 8 or 02 SAT < 92% Ondansetron HCl 4 mg 02/01/21 23:55 Ondansetron 4 Mg/2 Ml Inj IV Q6H PRN Nausea And Vomiting Oxycodone/Acetaminophen 1 tab 02/01/21 23:55 02/02/21 21:49 Oxycodone /Acetaminophen 5-325mg Tab PO 1 tab Q6H PRN Administration Pain, Moderate (4-6) Sodium Chloride 10 ml 02/02/21 10:00 02/08/21 22:07 Sodium Chloride 0.9% 10 Ml Flush Syringe IV 10 ml BID YANELIS Administration Sodium Chloride 10 ml 02/01/21 23:55 Sodium Chloride 0.9% 10 Ml Flush Syringe IV PRN PRN LINE FLUSH Trimethoprim/Sulfamethoxazole 1 each 02/02/21 13:00 02/08/21 09:43 Sulfamethoxazole/Trimethoprim 800/160mg Ds Tab PO 1 each Q24HR YANELIS Administration Protocol
--- NOTE | 2021-02-09 09:27 | XRay Report ---
CHEST 1 VIEW 02/09/2021 8:20 AM INDICATION / CLINICAL INFORMATION: Fever/evaluate for pneumonia. COMPARISON: February 01, 2021 FINDINGS: SUPPORT DEVICES: None. HEART / MEDIASTINUM: No significant abnormality. LUNGS / PLEURA: No significant pulmonary or pleural abnormality. No pneumothorax. ADDITIONAL FINDINGS: No significant additional findings. IMPRESSION: 1. No acute findings. Signer Name: Carson Castorena MD Signed: 02/09/2021 9:22 AM Workstation Name: [id number]
[2021-02-09] MEDS: SULFAMETHOXAZOLE/TRIMETHOPRIM 800/160MG DS TAB PO SCH (11:29)
[2021-02-09] MEDS: DOCUSATE SODIUM 100 MG CAP PO SCH ×2 (11:30→23:40)
[2021-02-09] MEDS: FAMOTIDINE 10 MG TAB PO SCH ×2 (11:30→23:41)
[2021-02-09] MEDS: DOXYCYCLINE 100 MG CAP PO SCH ×2 (11:30→23:42)
[2021-02-09] MEDS: HEPARIN 5,000 UNIT/1 ML VIAL SUB-Q SCH ×2 (11:31→23:40)
[2021-02-09] MEDS: oxyCODONE /ACETAMINOPHEN 5-325MG TAB PO PRN ×2 (11:42→20:35)
[2021-02-09] MEDS: ACETAMINOPHEN 325 MG TAB PO PRN (13:04)
--- NOTE | 2021-02-09 15:20 | Progress Note ---
Assessment and Plan SARS CoV2 PCR: negative 02/01/2021 blood culture: No growth 02/02/2021 serum cryptococcal antigen: Negative A/P: 45-year-old male with homelessness, HIV/AIDS, not on antiretroviral therapy, anxiety, asthma was admitted to the hospital with suicidal ideation: #Low-grade fever, leukopenia: Could be related to uncontrolled HIV/AIDS. Chest x-ray without any pneumonia, on room air. Evaluate for other occult opportunistic infections. #HIV/AIDS: not on ARVs. CD4 count of 3 in 01/2021. Patient states he was only recently diagnosed. He is not aware of any HIV related community resources. He has no home, no insurance, no money to pay for anything. #Suicidal ideation: Psychiatry cleared pt. #Multiple wounds, skin excoriations, suspected b/l LE cellulitis: Recommend wound care and empiric abx. Etiology of other skin lesions is unclear. Recs: Follow up repeat blood cultures Unclear source of new fevers. continue wound care Continue ceftriaxone, vancomycin Continue PO Bactrim DS 1 tab daily as prophylaxis Continue weekly PO azithromycin 1200 mg as prophylaxis (since it is unclear when he will actually begin ART, added Azithromycin prophylaxis) Okay to discharge on PO Keflex 500 mg QID plus doxycycline 100 mg BID x 10 days Will need social worker school assistance in providing resources as well as transportation. Patient will need to follow-up at [facility] clinic or [facility] guarded prognosis G. Regina Blackmon MD [facility] O: [phone] F: [phone] Subjective Date of service: 02/09/21 Interval history: Febrile to 102.8, white count 2.6. Repeat blood cultures obtained today. No acute change. Imaging personally reviewed: Chest x-ray: No acute findings. Objective - Exam Narrative Exam: Physical exam deferred to reduce risk of transmission of COVID-19. Please refer to primary team's note. - Constitutional Vitals: Vital Signs Temp Pulse Resp BP Pulse Ox 102.8 F H 123 H 20 107/64 100 02/09/21 13:16 02/09/21 12:10 02/09/21 12:10 02/09/21 12:10 02/09/21 12:10 Temperature -Last 24 Hours Temperature 102.8 F Temperature 102.8 F Temperature 98.8 F Temperature 99.7 F Temperature 103.1 F Temperature 100.6 F - Labs CBC & Chem 7: 02/03/21 07:09 02/03/21 07:09
[2021-02-10] MEDS: ACETAMINOPHEN 325 MG TAB PO PRN ×2 (03:25→09:13)
[2021-02-10] MEDS: AQUAPHOR OINTMENT TP SCH ×2 (05:45→17:08)
[2021-02-10] MEDS: cephALEXin 500 MG CAP PO SCH ×2 (05:46→13:19)
[2021-02-10 11:21] LABS: Hematocrit 21.5 % (35.5-45.6); Hemoglobin 7.2 gm/dl (11.8-15.2); Mean Corpuscular HGB Conc 33 % (32-34); Mean Corpuscular Volume 84 fl (84-94); Platelet Count 275 K/mm3 (140-440); Red Blood Count 2.57 M/mm3 (3.65-5.03); Red Cell Distribution Width 16.7 % (13.2-15.2)
[2021-02-10 11:35] LABS: BUN/Creatinine Ratio 14; Blood Urea Nitrogen 17 mg/dL (9-20); Calcium 8.6 mg/dL (8.4-10.2); Hemolysis Index 0
[2021-02-10] MEDS: FAMOTIDINE 10 MG TAB PO SCH ×2 (12:30→22:41)
[2021-02-10] MEDS: DOCUSATE SODIUM 100 MG CAP PO SCH (12:30)
[2021-02-10] MEDS: DOXYCYCLINE 100 MG CAP PO SCH ×2 (12:30→22:42)
[2021-02-10] MEDS: SULFAMETHOXAZOLE/TRIMETHOPRIM 800/160MG DS TAB PO SCH (12:30)
[2021-02-10] MEDS: HEPARIN 5,000 UNIT/1 ML VIAL SUB-Q SCH ×2 (12:30→22:40)
--- NOTE | 2021-02-10 13:16 | Progress Note ---
Assessment and Plan SARS CoV2 PCR: negative 02/01/2021 blood culture: No growth 02/02/2021 serum cryptococcal antigen: Negative A/P: 45-year-old male with homelessness, HIV/AIDS, not on antiretroviral therapy, anxiety, asthma was admitted to the hospital with suicidal ideation: #Low-grade fever, leukopenia: Could be related to uncontrolled HIV/AIDS. Chest x-ray without any pneumonia, on room air. Evaluate for other occult opportunistic infections. #HIV/AIDS: not on ARVs. CD4 count of 3 in 01/2021. Patient states he was only recently diagnosed. He is not aware of any HIV related community resources. He has no home, no insurance, no money to pay for anything. #Suicidal ideation: Psychiatry cleared pt. #Multiple wounds, skin excoriations, suspected b/l LE cellulitis: Recommend wound care and empiric abx. Etiology of other skin lesions is unclear. Recs: Follow up repeat blood cultures Unclear source of new fevers. continue wound care Continue ceftriaxone, vancomycin Continue PO Bactrim DS 1 tab daily as prophylaxis Continue weekly PO azithromycin 1200 mg as prophylaxis (since it is unclear when he will actually begin ART, added Azithromycin prophylaxis) Given persistent fevers, escalated therapy to vancomycin, cefepime for now. Will need social welfare clerk assistance in providing resources as well as transportation. Patient will need to follow-up at [facility] clinic or [facility] guarded prognosis G. Regina Blackmon MD [facility] ([facility] O: [phone] F: [phone] Subjective Date of service: 02/10/21 Interval history: Remains febrile with a white count of 2.6. Objective - Exam Narrative Exam: Physical exam deferred to reduce risk of transmission of COVID-19. Please refer to primary team's note. - Constitutional Vitals: Vital Signs Temp Pulse Resp BP Pulse Ox 98.5 F 94 H 18 104/56 100 02/10/21 11:53 02/10/21 11:53 02/10/21 11:53 02/10/21 11:53 02/10/21 11:53 Temperature -Last 24 Hours Temperature 98.5 F Temperature 102.6 F Temperature 101.4 F Temperature 99.8 F Temperature 102.8 F - Labs CBC & Chem 7: 02/10/21 Unknown 02/10/21 Unknown Labs: Abnormal lab results 02/10/21 02/10/21 Range/Units Unknown Unknown WBC 2.9 L (4.5-11.0) K/mm3 RBC 2.57 L (3.65-5.03) M/mm3 Hgb 7.2 L (11.8-15.2) gm/dl Hct 21.5 L (35.5-45.6) % RDW 16.7 H (13.2-15.2) % Sodium 132 L (137-145) mmol/L Glucose 106 H (75-100) mg/dL
[2021-02-10] MEDS ORDERED: CEFEPIME/NS 2 GM/100 ML 2 GM/100 ML BAG IV SCH (14:00)
[2021-02-10] MEDS ORDERED: VANCOMYCIN PHARMACY TO DOSE IV SCH (14:00)
[2021-02-10] MEDS: levoFLOXacin 750 MG TAB PO SCH (17:05)
[2021-02-10] MEDS: AZITHROMYCIN 600 MG TAB PO SCH (17:05)
[2021-02-10 18:26] LABS: Platelet Estimate Consistent w Auto; Total Cells Counted 100
--- NOTE | 2021-02-10 18:38 | Progress Note ---
Assessment and Plan Assessment and plan: --Suicidal thoughts and ideation; Nurse reports that patient expressed suicidal thoughts and plans Patient was evaluated for suicidal ideation and later cleared for discharge We will request psych for reevaluation --Persistent fever; T-max last 24 hours is 103.1F, patient is already on antibiotics, ID following [place] PCR test is negative, chest x-ray on 02/01/2021 - for pneumonia Set of cultures are negative 02/01/2021, cryptococcal antigen negative 02/02/2021 We will check new chest x-ray to rule out pneumonia Send new set of urine and blood cultures, ID adjusted antibiotics --Negative COVID-19 test --HIV AIDS; noncompliant with antiretrovirals, ID following I recommend compliance with medications follow-up visits Health department, [place] Case management to assist with home health/transportation --History of asthma; patient is saturating well on room air, Albuterol as needed --Multiple superficial wounds; wound care --Discharge planning; patient has multiple social issues Homeless, no resources, case management and group social worker trying to secure A place in the local shelters --Requested psych reevaluation today --1013 status/suicidal watch Hold discharge at this point We will closely monitor the patient and adjust management as needed Follow-up psych reevaluation and recommendations compensation manager at the bedside Brief history and hospital course: 45-year-old homeless male with history of AIDS, anxiety, and asthma who presented at [facility] ED with complaints of suicidal ideation. Patient states his has taken everything from him, and he is now homeless struggling to find food and jail. Endorses feeling anxious, and depressed and wants to end his life. He states that he has voices in his head telling him to kill himself which started approximately a day ago. While in the ED patient was noted to have a fever and multiple excoriations throughout his body. Additionally he complains of generalized body pain. Endorses feeling itchy and as a result he continues to scratch his body, which has contributed to the multiple excoriation s noted. 02/02: Patient remains clinically stable, awaiting COVID19 TESTING RESULT. Psych input noted, cleared as patient denies suicidal ideation. Wound management. Anticipate discharge in am if COVID19 is negative. Replace K. 02/03: Patient still with low grade fever, Negative COVID 19 TEST, per ID, - Antibiotics switched to ceftriaxone -P.O. Bactrim ordered for prophylaxis -LDH, Fungitell, serum cryptococcal antigen ordered. Continue supportive care. 02/04: Patient seen and examined today no acute distress still with skin excoriation dry skin etiology of skin lesions is unclear if this needs to be evaluated outpatient. Patient was seen by ID and was recommended and treated with ceftriaxone and vancomycin also p.o. Bactrim DS 1 tab daily for prophylaxis and azithromycin 1200 mg as prophylaxis. (since it is unclear when he will actually begin ART, added Azithromycin prophylaxis) If he remains afebrile, may discharge on PO Keflex 500 mg QID plus doxycycline 100 mg BID x 10 days Patient's leukopenia was felt to be secondary to uncontrolled HIV/AIDS chest x- ray was without pneumonia and is on room air doing well no other options infection is noted. Patient was cleared by psychiatry for suicidal ideation. He tolerated ceftriaxone here just the reason why Keflex has been added to his medication regimen. I did discuss with social workers for assistance in providing him resources on for placement and also transportation Patient will need to follow-up at [facility] clinic or [facility] guarded prognosis 02/05: Patient has been discharged awaiting placement. My anticipation is with the patient will go to personal usp out of the jail. He continues to refuse treatment while in house here. 02/06: Awaiting safe discharge. Continue supportive care, counselling provided to comply with treatment 02/07: Patient seen and examined resting comfortably Case management working with him have ordered a wheelchair unfortunately the company bringing it was going to take it to his previous address in [place] that has been corrected and I will bring it here for him to go to a jail and then follow-up with his doctors as 02/08/2021; patient is medically stable for discharge Multiple social issues, homeless, jail placement 02/09/2021; patient reported to the nurse that he has full suicidal thoughts and ideation Patient had similar symptoms at the time of admission, psych has evaluated and cleared for discharge We will place him 1013 again and reconsult psych, hold discharge at this point Follow psych recommendations ; persistent fevers, ID adjusted antibiotics Follow cultures, x-ray negative for pneumonia Psych following, poor prognosis History Interval history: Seen and examined the patient at the bedside Patient is febrile complains of generalized weakness Vital signs reviewed 1013 status/suicidal watch Hospitalist Physical - Constitutional Vitals: Temp Pulse Resp BP Pulse Ox 98.5 F 94 H 18 104/56 100 02/10/21 11:53 02/10/21 11:53 02/10/21 11:53 02/10/21 11:53 02/10/21 11:53 General appearance: Present: mild distress, well-nourished, other (Depressed) - EENT Eyes: Present: PERRL, EOM intact - Neck Neck: Present: supple, normal ROM - Respiratory Respiratory effort: normal Respiratory: bilateral: diminished, rhonchi, negative: rales, wheezing - Cardiovascular Rhythm: regular Heart Sounds: Present: S1 & S2 - Extremities Extremities: no ischemia, No edema - Abdominal General gastrointestinal: soft, non-tender, non-distended, normal bowel sounds - Integumentary Integumentary: Present: clear, warm - Psychiatric Psychiatric: appropriate mood/affect, cooperative - Neurologic Neurologic: CNII-XII intact, moves all extremities Results - Labs CBC & Chem 7: 02/10/21 Unknown 02/10/21 Unknown Labs: Laboratory Last Values WBC 2.9 K/mm3 (4.5-11.0) L 02/10/21 Unknown RBC 2.57 M/mm3 (3.65-5.03) L 02/10/21 Unknown Hgb 7.2 gm/dl (11.8-15.2) L 02/10/21 Unknown Hct 21.5 % (35.5-45.6) L 02/10/21 Unknown MCV 84 fl (84-94) 02/10/21 Unknown MCH 28 pg (28-32) 02/10/21 Unknown MCHC 33 % (32-34) 02/10/21 Unknown RDW 16.7 % (13.2-15.2) H 02/10/21 Unknown Plt Count 275 K/mm3 (140-440) 02/10/21 Unknown Lamb % (Auto) Tooling [employer] Tech 02/10/21 Unknown Add Manual Diff Complete 02/10/21 Unknown Total Counted 100 02/10/21 Unknown Seg Neuts % (Manual) 66.0 % (40.0-70.0) 02/10/21 Unknown Band Neutrophils % 1.0 % 02/10/21 Unknown Lymphocytes % (Manual) 12.0 % (13.4-35.0) L 02/10/21 Unknown Monocytes % (Manual) 18.0 % (0.0-7.3) H 02/10/21 Unknown Eosinophils % (Manual) 3.0 % (0.0-4.3) 02/10/21 Unknown Nucleated RBC % Not Reportable 02/10/21 Unknown Seg Neutrophils # Man 1.9 K/mm3 (1.8-7.7) 02/10/21 Unknown Band Neutrophils # 0.0 K/mm3 02/10/21 Unknown Lymphocytes # (Manual) 0.3 K/mm3 (1.2-5.4) L 02/10/21 Unknown Abs React Lymphs (Man) 0.0 K/mm3 02/10/21 Unknown Monocytes # (Manual) 0.5 K/mm3 (0.0-0.8) 02/10/21 Unknown Eosinophils # (Manual) 0.1 K/mm3 (0.0-0.4) 02/10/21 Unknown Basophils # (Manual) 0.0 K/mm3 (0.0-0.1) 02/10/21 Unknown Metamyelocytes # 0.0 K/mm3 02/10/21 Unknown Myelocytes # 0.0 K/mm3 02/10/21 Unknown Promyelocytes # 0.0 K/mm3 02/10/21 Unknown Blast Cells # 0.0 K/mm3 02/10/21 Unknown WBC Morphology Not Reportable 02/10/21 Unknown Hypersegmented Neuts Not Reportable 02/10/21 Unknown Hyposegmented Neuts Not Reportable 02/10/21 Unknown Hypogranular Neuts Not Reportable 02/10/21 Unknown Smudge Cells Not Reportable 02/10/21 Unknown Toxic Granulation Not Reportable 02/10/21 Unknown Toxic Vacuolation Not Reportable 02/10/21 Unknown Dohle Bodies Not Reportable 02/10/21 Unknown Pelger-Huet Anomaly Not Reportable 02/10/21 Unknown Steffi Rods Not Reportable 02/10/21 Unknown Platelet Estimate Consistent w auto 02/10/21 Unknown Clumped Platelets Not Reportable 02/10/21 Unknown Plt Clumps, EDTA Not Reportable 02/10/21 Unknown Large Platelets Not Reportable 02/10/21 Unknown Giant Platelets Not Reportable 02/10/21 Unknown Platelet Satelliting Not Reportable 02/10/21 Unknown Plt Morphology Comment Not Reportable 02/10/21 Unknown RBC Morphology Not Reportable 02/10/21 Unknown Dimorphic RBCs Not Reportable 02/10/21 Unknown Polychromasia Not Reportable 02/10/21 Unknown Hypochromasia Not Reportable 02/10/21 Unknown Poikilocytosis Not Reportable 02/10/21 Unknown Anisocytosis Not Reportable 02/10/21 Unknown Microcytosis Not Reportable 02/10/21 Unknown Macrocytosis Not Reportable 02/10/21 Unknown Spherocytes Not Reportable 02/10/21 Unknown Pappenheimer Bodies Not Reportable 02/10/21 Unknown Sickle Cells Not Reportable 02/10/21 Unknown Target Cells Not Reportable 02/10/21 Unknown Tear Drop Cells Not Reportable 02/10/21 Unknown Ovalocytes Not Reportable 02/10/21 Unknown Helmet Cells Not Reportable 02/10/21 Unknown [place] Bodies Not Reportable 02/10/21 Unknown [place] Rings Not Reportable 02/10/21 Unknown Praveena Cells Not Reportable 02/10/21 Unknown Bite Cells Not Reportable 02/10/21 Unknown Crenated Cell Not Reportable 02/10/21 Unknown Elliptocytes Not Reportable 02/10/21 Unknown Acanthocytes (Spur) Not Reportable 02/10/21 Unknown Rouleaux Not Reportable 02/10/21 Unknown Hemoglobin C Crystals Not Reportable 02/10/21 Unknown Schistocytes Not Reportable 02/10/21 Unknown Malaria parasites Not Reportable 02/10/21 Unknown Josue Bodies Not Reportable 02/10/21 Unknown Hem Pathologist Commnt No 02/10/21 Unknown Sodium 132 mmol/L (137-145) L 02/10/21 Unknown Potassium 4.0 mmol/L (3.6-5.0) 02/10/21 Unknown Chloride 98.2 mmol/L (98-107) 02/10/21 Unknown Carbon Dioxide 22 mmol/L (22-30) 02/10/21 Unknown Anion Gap 16 mmol/L 02/10/21 Unknown BUN 17 mg/dL (9-20) 02/10/21 Unknown Creatinine 1.2 mg/dL (0.8-1.3) 02/10/21 Unknown Estimated GFR > 60 ml/min 02/10/21 Unknown BUN/Creatinine Ratio 14 % 02/10/21 Unknown Glucose 106 mg/dL (75-100) H 02/10/21 Unknown Lactic Acid 0.50 mmol/L (0.7-2.0) L 02/02/21 00:41 Calcium 8.6 mg/dL (8.4-10.2) 02/10/21 Unknown Total Bilirubin 0.30 mg/dL (0.1-1.2) 02/01/21 20:54 AST 23 units/L (5-40) 02/01/21 20:54 ALT 11 units/L (7-56) 02/01/21 20:54 Alkaline Phosphatase 55 units/L (35-129) 02/01/21 20:54 Total Protein 7.2 g/dL (6.3-8.2) 02/01/21 20:54 Albumin 3.3 g/dL (3.9-5) L 02/01/21 20:54 Albumin/Globulin Ratio 0.8 % 02/01/21 20:54 Urine Color Yellow (Yellow) 02/02/21 02:00 Urine Turbidity Slightly-cloudy (Clear) 02/02/21 02:00 Urine pH 6.0 (5.0-7.0) 02/02/21 02:00 Ur Specific [place] 1.011 (1.003-1.030) 02/02/21 02:00 Urine Protein 30 mg/dl mg/dL (Negative) 02/02/21 02:00 Urine Glucose (UA) Neg mg/dL (Negative) 02/02/21 02:00 Urine Ketones Neg mg/dL (Negative) 02/02/21 02:00 Urine Blood Neg (Negative) 02/02/21 02:00 Urine Nitrite Neg (Negative) 02/02/21 02:00 Urine Bilirubin Neg (Negative) 02/02/21 02:00 Urine Urobilinogen < 2.0 mg/dL (<2.0) 02/02/21 02:00 Ur Leukocyte Esterase Neg (Negative) 02/02/21 02:00 Urine WBC (Auto) 3.0 /HPF (0.0-6.0) 02/10/21 07:00 Urine RBC (Auto) 3.0 /HPF (0.0-6.0) 02/10/21 07:00 U Epithel Cells (Auto) 5.0 /HPF (0-13.0) 02/10/21 07:00 Urine Mucus Few /HPF 02/02/21 02:00 Urine Yeast (Budding) Few /HPF 02/02/21 02:00 Salicylates < 0.3 mg/dL (2.8-20.0) L 02/01/21 17:21 Urine Opiates Screen Presumptive negative 02/02/21 02:00 Urine Methadone Screen Presumptive negative 02/02/21 02:00 Acetaminophen 5.0 ug/mL (10.0-30.0) L 02/01/21 17:21 Ur Barbiturates Screen Presumptive negative 02/02/21 02:00 Ur Phencyclidine Scrn Presumptive negative 02/02/21 02:00 Ur Amphetamines Screen Presumptive negative 02/02/21 02:00 U Benzodiazepines Scrn Presumptive negative 02/02/21 02:00 Urine Cocaine Screen Presumptive negative 02/02/21 02:00 U Marijuana (THC) Screen Presumptive negative 02/02/21 02:00 Drugs of Abuse Note Disclamer 02/02/21 02:00 Coronavirus (PCR) Negative (Negative) 02/02/21 Unknown Miscellaneous Test Flexitest 1 02/02/21 Unknown Microbiology: Microbiology 02/09/21 13:57 Peripheral/Venous Blood Culture - Preliminary NO GROWTH AFTER 24 HOURS 02/09/21 13:57 Peripheral/Venous Blood Culture - Preliminary NO GROWTH AFTER 24 HOURS North/IV: Voiding Method Urinal Active Medications - Current Medications Current Medications: Generic Name Dose Route Start Last Admin Trade Name Freq PRN Reason Stop Dose Admin Acetaminophen 650 mg 02/01/21 23:55 02/10/21 09:13 Acetaminophen 325 Mg Tab PO 650 mg Q4H PRN Administration Pain MILD(1-3)/Fever >100.5/STEPHENS Albuterol 2 puff 02/02/21 04:00 Albuterol 8.5 Gm Mdi Inhalation IH Q4HRT PRN Shortness Of Breath Alprazolam 0.5 mg 02/01/21 23:55 02/03/21 22:28 Alprazolam 0.5 Mg Tab PO 0.5 mg Q8H PRN Administration Anxiety Azithromycin 1,200 mg 02/03/21 16:00 02/10/21 17:05 Azithromycin 600 Mg Tab PO 1,200 mg Th@1600 YANELIS Administration Protocol Diphenhydramine HCl 25 mg 02/06/21 15:00 02/06/21 22:57 Diphenhydramine 25 Mg Cap PO 25 mg Q6H PRN Administration Itching Docusate Sodium 100 mg 02/02/21 10:00 02/10/21 12:30 Docusate Sodium 100 Mg Cap PO 100 mg BID YANELIS Administration Doxycycline Hyclate 100 mg 02/10/21 22:00 Doxycycline 100 Mg Cap PO BID [facility] Protocol Famotidine 10 mg 02/02/21 10:00 02/10/21 12:30 Famotidine 10 Mg Tab PO 10 mg BID YANELIS Administration Heparin Sodium (Porcine) 5,000 unit 02/02/21 10:00 02/10/21 12:30 Heparin 5,000 Unit/1 Ml Vial SUB-Q 5,000 unit Q12HR YANELIS Administration Hydrophilic Ointment 1 applic 02/06/21 16:00 02/10/21 17:08 Aquaphor Ointment TP 1 applic Q12H YANELIS Administration Levofloxacin 750 mg 02/10/21 14:00 02/10/21 17:05 Levofloxacin 750 Mg Tab PO 750 mg Q24HR YANELIS Administration Protocol Naloxone HCl 0.1 mg 02/01/21 22:55 Naloxone 0.4 Mg/1 Ml Inj IV Q2MIN PRN Res Rate </= 8 or 02 SAT < 92% Ondansetron HCl 4 mg 02/01/21 23:55 Ondansetron 4 Mg/2 Ml Inj IV Q6H PRN Nausea And Vomiting Oxycodone/Acetaminophen 1 tab 02/01/21 23:55 02/09/21 20:35 Oxycodone /Acetaminophen 5-325mg Tab PO 1 tab Q6H PRN Administration Pain, Moderate (4-6) Sodium Chloride 10 ml 02/02/21 10:00 02/10/21 12:31 Sodium Chloride 0.9% 10 Ml Flush Syringe IV 10 ml BID YANELIS Administration Sodium Chloride 10 ml 02/01/21 23:55 Sodium Chloride 0.9% 10 Ml Flush Syringe IV PRN PRN LINE FLUSH Trimethoprim/Sulfamethoxazole 1 each 02/02/21 13:00 02/10/21 12:30 Sulfamethoxazole/Trimethoprim 800/160mg Ds Tab PO 1 each Q24HR YANELIS Administration Protocol Nutrition/Malnutrition Assess - Dietary Evaluation Nutrition/Malnutrition Findings: Nutrition Notes Start: 02/08/21 13:44 Freq: Status: Active Protocol: Document 02/09/21 11:57 GB (Rec: 02/09/21 12:08 GB [id number]) Nutrition Notes Need for Assessment generated from: LOS Initial or Follow up Assessment Other Pertinent Diagnosis suididal thoughts/ideation Current Diet cardiac Labs/Tests 02/03: Na 135, BUN 8, Ca 7.8 Pertinent Medications azithromycin Height 6 ft 3 in Weight 81.647 kg [facility] Body Weight (kg) 89.09 BMI 22.5 Weight change and time frame No reported weight changes Weight Status Appropriate Subjective/Other Information homeless, no resources Percent of energy/protein needs met: 100% Burn Absent Trauma Absent GI Symptoms None Food Allergy Yes Skin Integrity/Comment mulitple superficial wounds Current % PO Good (75-100%) Minimum of two criteria No #1 Nutrition Diagnosis No nutrition diagnosis at this time As Evidenced by Signs and Symptoms Good PO, no reported weight changes. Documented that pt has limited resources/homeless Is patient on ventilator? No Is Patient Ambulatory and/or Out of Bed Yes REE-([place]-ambulatory/OOB) [ 2336.230 NUTR.[id number]] Kcal/Kg value to use for calculation 25 Approximate Energy Requirements Using 2041 kcal/Kg Calculation Used for Recommendations Kcal/kg Additional Notes Protein: 0.8-1 g/kg @ 82k -82g 1 ml/kcal or per MD Nutrition Intervention Change Diet Order: continue Nutrition Support: n/a Add Supplement/Snack (indicate name/kcal n/a /protein ) Goal #1 PO intake continues at 75% or greater during LOS Follow-Up By: 03/09/21 Revisit per MD consult or patient Sign Off request:
--- NOTE | 2021-02-11 10:12 | Progress Note ---
Assessment and Plan Assessment and plan: --Suicidal thoughts and ideation; Nurse reports that patient expressed suicidal thoughts and plans Patient was evaluated for suicidal ideation and later cleared for discharge We will request psych for reevaluation --Persistent fever; T-max last 24 hours is 103.1F, patient is already on antibiotics, ID following [place] PCR test is negative, chest x-ray on 02/01/2021 - for pneumonia Set of cultures are negative 02/01/2021, cryptococcal antigen negative 02/02/2021 We will check new chest x-ray to rule out pneumonia Send new set of urine and blood cultures, ID adjusted antibiotics --Negative COVID-19 test --HIV AIDS; noncompliant with antiretrovirals, ID following I recommend compliance with medications follow-up visits Health department, [place] Case management to assist with home health/transportation --History of asthma; patient is saturating well on room air, Albuterol as needed --Multiple superficial wounds; wound care --Discharge planning; patient has multiple social issues Homeless, no resources, case management 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 Patient states his has taken everything from him, and he is now homeless struggling to find food and fpc. Endorses feeling anxious, and depressed and wants to end his life. He states that he has voices in his head telling him to kill himself which started approximately a day ago. While in the ED patient was noted to have a fever and multiple excoriations throughout his body. Additionally he complains of generalized body pain. Endorses feeling itchy and as a result he continues to scratch his body, which has contributed to the multiple excoriation s noted. 02/02: Patient remains clinically stable, awaiting COVID19 TESTING RESULT. Psych input noted, cleared as patient denies suicidal ideation. Wound management. Anticipate discharge in am if COVID19 is negative. Replace K. 02/03: Patient still with low grade fever, Negative COVID 19 TEST, per ID, - Antibiotics switched to ceftriaxone -P.O. Bactrim ordered for prophylaxis -LDH, Fungitell, serum cryptococcal antigen ordered. Continue supportive care. 02/04: Patient seen and examined today no acute distress still with skin excoriation dry skin etiology of skin lesions is unclear if this needs to be evaluated outpatient. Patient was seen by ID and was recommended and treated with ceftriaxone and vancomycin also p.o. Bactrim DS 1 tab daily for prophylaxis and azithromycin 1200 mg as prophylaxis. (since it is unclear when he will actually begin ART, added Azithromycin prophylaxis) If he remains afebrile, may discharge on PO Keflex 500 mg QID plus doxycycline 100 mg BID x 10 days Patient's leukopenia was felt to be secondary to uncontrolled HIV/AIDS chest x- ray was without pneumonia and is on room air doing well no other options infection is noted. Patient was cleared by psychiatry for suicidal ideation. He tolerated ceftriaxone here just the reason why Keflex has been added to his medication regimen. I did discuss with social workers for assistance in providing him resources on for placement and also transportation Patient will need to follow-up at [facility] clinic or [facility] guarded prognosis 02/05: Patient has been discharged awaiting placement. My anticipation is with the patient will go to personal retirement out of the fpc. He continues to refuse treatment while in house here. 02/06: Awaiting safe discharge. Continue supportive care, counselling provided to comply with treatment 02/07: Patient seen and examined resting comfortably Case management working with him have ordered a wheelchair unfortunately the company bringing it was going to take it to his previous address in [place] that has been corrected and I will bring it here for him to go to a fpc and then follow-up with his doctors as 02/08/2021; patient is medically stable for discharge Multiple social issues, homeless, fpc placement 02/09/2021; patient reported to the nurse that he has full suicidal thoughts and ideation Patient had similar symptoms at the time of admission, psych has evaluated and cleared for discharge We will place him 1013 again and reconsult psych, hold discharge at this point Follow psych recommendations ; persistent fevers, ID adjusted antibiotics Follow cultures, x-ray negative for pneumonia Psych following, poor prognosis 02/11; DC planning per case management Patient is homeless, placement issues History Interval history: Patient reports that he feels better Now suicidal thoughts or ideation No new complaints Hospitalist Physical - Constitutional Vitals: Temp Pulse Resp BP Pulse Ox 99.1 F 92 H 16 112/61 99 02/11/21 05:32 02/11/21 05:32 02/11/21 05:32 02/11/21 05:32 02/11/21 05:32 General appearance: Present: mild distress, well-nourished, other (Afebrile) - EENT Eyes: Present: PERRL, EOM intact - Neck Neck: Present: supple, normal ROM - Respiratory Respiratory effort: normal Respiratory: bilateral: diminished, negative: rales, rhonchi, wheezing - Cardiovascular Rhythm: regular Heart Sounds: Present: S1 & S2 - Extremities Extremities: no ischemia, No edema - Abdominal General gastrointestinal: soft, non-tender, non-distended, normal bowel sounds - Integumentary Integumentary: Present: clear, warm - Psychiatric Psychiatric: appropriate mood/affect, cooperative - Neurologic Neurologic: CNII-XII intact, moves all extremities Results - Labs CBC & Chem 7: 02/10/21 Unknown 02/10/21 Unknown Labs: Laboratory Last Values WBC 2.9 K/mm3 (4.5-11.0) L 02/10/21 Unknown RBC 2.57 M/mm3 (3.65-5.03) L 02/10/21 Unknown Hgb 7.2 gm/dl (11.8-15.2) L 02/10/21 Unknown Hct 21.5 % (35.5-45.6) L 02/10/21 Unknown MCV 84 fl (84-94) 02/10/21 Unknown MCH 28 pg (28-32) 02/10/21 Unknown MCHC 33 % (32-34) 02/10/21 Unknown RDW 16.7 % (13.2-15.2) H 02/10/21 Unknown Plt Count 275 K/mm3 (140-440) 02/10/21 Unknown [place] % (Auto) Waste[employer] Operator 02/10/21 Unknown Add Manual Diff Complete 02/10/21 Unknown Total Counted 100 02/10/21 Unknown Seg Neuts % (Manual) 66.0 % (40.0-70.0) 02/10/21 Unknown Band Neutrophils % 1.0 % 02/10/21 Unknown Lymphocytes % (Manual) 12.0 % (13.4-35.0) L 02/10/21 Unknown Monocytes % (Manual) 18.0 % (0.0-7.3) H 02/10/21 Unknown Eosinophils % (Manual) 3.0 % (0.0-4.3) 02/10/21 Unknown Nucleated RBC % Not Reportable 02/10/21 Unknown Seg Neutrophils # Man 1.9 K/mm3 (1.8-7.7) 02/10/21 Unknown Band Neutrophils # 0.0 K/mm3 02/10/21 Unknown Lymphocytes # (Manual) 0.3 K/mm3 (1.2-5.4) L 02/10/21 Unknown Abs React Lymphs (Man) 0.0 K/mm3 02/10/21 Unknown Monocytes # (Manual) 0.5 K/mm3 (0.0-0.8) 02/10/21 Unknown Eosinophils # (Manual) 0.1 K/mm3 (0.0-0.4) 02/10/21 Unknown Basophils # (Manual) 0.0 K/mm3 (0.0-0.1) 02/10/21 Unknown Metamyelocytes # 0.0 K/mm3 02/10/21 Unknown Myelocytes # 0.0 K/mm3 02/10/21 Unknown Promyelocytes # 0.0 K/mm3 02/10/21 Unknown Blast Cells # 0.0 K/mm3 02/10/21 Unknown WBC Morphology Not Reportable 02/10/21 Unknown Hypersegmented Neuts Not Reportable 02/10/21 Unknown Hyposegmented Neuts Not Reportable 02/10/21 Unknown Hypogranular Neuts Not Reportable 02/10/21 Unknown Smudge Cells Not Reportable 02/10/21 Unknown Toxic Granulation Not Reportable 02/10/21 Unknown Toxic Vacuolation Not Reportable 02/10/21 Unknown Dohle Bodies Not Reportable 02/10/21 Unknown Pelger-Huet Anomaly Not Reportable 02/10/21 Unknown Steffi Rods Not Reportable 02/10/21 Unknown Platelet Estimate Consistent w auto 02/10/21 Unknown Clumped Platelets Not Reportable 02/10/21 Unknown Plt Clumps, EDTA Not Reportable 02/10/21 Unknown Large Platelets Not Reportable 02/10/21 Unknown Giant Platelets Not Reportable 02/10/21 Unknown Platelet Satelliting Not Reportable 02/10/21 Unknown Plt Morphology Comment Not Reportable 02/10/21 Unknown RBC Morphology Not Reportable 02/10/21 Unknown Dimorphic RBCs Not Reportable 02/10/21 Unknown Polychromasia Not Reportable 02/10/21 Unknown Hypochromasia Not Reportable 02/10/21 Unknown Poikilocytosis Not Reportable 02/10/21 Unknown Anisocytosis Not Reportable 02/10/21 Unknown Microcytosis Not Reportable 02/10/21 Unknown Macrocytosis Not Reportable 02/10/21 Unknown Spherocytes Not Reportable 02/10/21 Unknown Pappenheimer Bodies Not Reportable 02/10/21 Unknown Sickle Cells Not Reportable 02/10/21 Unknown Target Cells Not Reportable 02/10/21 Unknown Tear Drop Cells Not Reportable 02/10/21 Unknown Ovalocytes Not Reportable 02/10/21 Unknown Helmet Cells Not Reportable 02/10/21 Unknown Hackett-Henning Bodies Not Reportable 02/10/21 Unknown Nathalie Rings Not Reportable 02/10/21 Unknown Praveena Cells Not Reportable 02/10/21 Unknown Bite Cells Not Reportable 02/10/21 Unknown Crenated Cell Not Reportable 02/10/21 Unknown Elliptocytes Not Reportable 02/10/21 Unknown Acanthocytes (Spur) Not Reportable 02/10/21 Unknown Rouleaux Not Reportable 02/10/21 Unknown Hemoglobin C Crystals Not Reportable 02/10/21 Unknown Schistocytes Not Reportable 02/10/21 Unknown Malaria parasites Not Reportable 02/10/21 Unknown Josue Bodies Not Reportable 02/10/21 Unknown Hem Pathologist Commnt No 02/10/21 Unknown Sodium 132 mmol/L (137-145) L 02/10/21 Unknown Potassium 4.0 mmol/L (3.6-5.0) 02/10/21 Unknown Chloride 98.2 mmol/L (98-107) 02/10/21 Unknown Carbon Dioxide 22 mmol/L (22-30) 02/10/21 Unknown Anion Gap 16 mmol/L 02/10/21 Unknown BUN 17 mg/dL (9-20) 02/10/21 Unknown Creatinine 1.2 mg/dL (0.8-1.3) 02/10/21 Unknown Estimated GFR > 60 ml/min 02/10/21 Unknown BUN/Creatinine Ratio 14 % 02/10/21 Unknown Glucose 106 mg/dL (75-100) H 02/10/21 Unknown Lactic Acid 0.50 mmol/L (0.7-2.0) L 02/02/21 00:41 Calcium 8.6 mg/dL (8.4-10.2) 02/10/21 Unknown Total Bilirubin 0.30 mg/dL (0.1-1.2) 02/01/21 20:54 AST 23 units/L (5-40) 02/01/21 20:54 ALT 11 units/L (7-56) 02/01/21 20:54 Alkaline Phosphatase 55 units/L (35-129) 02/01/21 20:54 Total Protein 7.2 g/dL (6.3-8.2) 02/01/21 20:54 Albumin 3.3 g/dL (3.9-5) L 02/01/21 20:54 Albumin/Globulin Ratio 0.8 % 02/01/21 20:54 Urine Color Yellow (Yellow) 02/02/21 02:00 Urine Turbidity Slightly-cloudy (Clear) 02/02/21 02:00 Urine pH 6.0 (5.0-7.0) 02/02/21 02:00 Ur Specific [place] 1.011 (1.003-1.030) 02/02/21 02:00 Urine Protein 30 mg/dl mg/dL (Negative) 02/02/21 02:00 Urine Glucose (UA) Neg mg/dL (Negative) 02/02/21 02:00 Urine Ketones Neg mg/dL (Negative) 02/02/21 02:00 Urine Blood Neg (Negative) 02/02/21 02:00 Urine Nitrite Neg (Negative) 02/02/21 02:00 Urine Bilirubin Neg (Negative) 02/02/21 02:00 Urine Urobilinogen < 2.0 mg/dL (<2.0) 02/02/21 02:00 Ur Leukocyte Esterase Neg (Negative) 02/02/21 02:00 Urine WBC (Auto) 3.0 /HPF (0.0-6.0) 02/10/21 07:00 Urine RBC (Auto) 3.0 /HPF (0.0-6.0) 02/10/21 07:00 U Epithel Cells (Auto) 5.0 /HPF (0-13.0) 02/10/21 07:00 Urine Mucus Few /HPF 02/02/21 02:00 Urine Yeast (Budding) Few /HPF 02/02/21 02:00 Salicylates < 0.3 mg/dL (2.8-20.0) L 02/01/21 17:21 Urine Opiates Screen Presumptive negative 02/02/21 02:00 Urine Methadone Screen Presumptive negative 02/02/21 02:00 Acetaminophen 5.0 ug/mL (10.0-30.0) L 02/01/21 17:21 Ur Barbiturates Screen Presumptive negative 02/02/21 02:00 Ur Phencyclidine Scrn Presumptive negative 02/02/21 02:00 Ur Amphetamines Screen Presumptive negative 02/02/21 02:00 U Benzodiazepines Scrn Presumptive negative 02/02/21 02:00 Urine Cocaine Screen Presumptive negative 02/02/21 02:00 U Marijuana (THC) Screen Presumptive negative 02/02/21 02:00 Drugs of Abuse Note Disclamer 02/02/21 02:00 Coronavirus (PCR) Negative (Negative) 02/02/21 Unknown Miscellaneous Test Flexitest 1 02/02/21 Unknown Microbiology: Microbiology 02/09/21 13:57 Peripheral/Venous Blood Culture - Preliminary NO GROWTH AFTER 24 HOURS 02/09/21 13:57 Peripheral/Venous Blood Culture - Preliminary NO GROWTH AFTER 24 HOURS North/IV: Voiding Method Urinal Active Medications - Current Medications Current Medications: Generic Name Dose Route Start Last Admin Trade Name Freq PRN Reason Stop Dose Admin Acetaminophen 650 mg 02/01/21 23:55 02/10/21 09:13 Acetaminophen 325 Mg Tab PO 650 mg Q4H PRN Administration Pain MILD(1-3)/Fever >100.5/STEPHENS Albuterol 2 puff 02/02/21 04:00 Albuterol 8.5 Gm Mdi Inhalation IH Q4HRT PRN Shortness Of Breath Alprazolam 0.5 mg 02/01/21 23:55 02/03/21 22:28 Alprazolam 0.5 Mg Tab PO 0.5 mg Q8H PRN Administration Anxiety Azithromycin 1,200 mg 02/03/21 16:00 02/10/21 17:05 Azithromycin 600 Mg Tab PO 1,200 mg Th@1600 YANELIS Administration Protocol Diphenhydramine HCl 25 mg 02/06/21 15:00 02/06/21 22:57 Diphenhydramine 25 Mg Cap PO 25 mg Q6H PRN Administration Itching Docusate Sodium 100 mg 02/02/21 10:00 02/10/21 12:30 Docusate Sodium 100 Mg Cap PO 100 mg BID YANELIS Administration Doxycycline Hyclate 100 mg 02/10/21 22:00 02/10/21 22:42 Doxycycline 100 Mg Cap PO 100 mg BID YANELIS Administration Protocol Famotidine 10 mg 02/02/21 10:00 02/10/21 22:41 Famotidine 10 Mg Tab PO 10 mg BID YANELIS Administration Heparin Sodium (Porcine) 5,000 unit 02/02/21 10:00 02/10/21 22:40 Heparin 5,000 Unit/1 Ml Vial SUB-Q 5,000 unit Q12HR YANELIS Administration Hydrophilic Ointment 1 applic 02/06/21 16:00 02/10/21 17:08 Aquaphor Ointment TP 1 applic Q12H YANELIS Administration Levofloxacin 750 mg 02/10/21 14:00 02/10/21 17:05 Levofloxacin 750 Mg Tab PO 750 mg Q24HR YANELIS Administration Protocol Naloxone HCl 0.1 mg 02/01/21 22:55 Naloxone 0.4 Mg/1 Ml Inj IV Q2MIN PRN Res Rate </= 8 or 02 SAT < 92% Ondansetron HCl 4 mg 02/01/21 23:55 Ondansetron 4 Mg/2 Ml Inj IV Q6H PRN Nausea And Vomiting Oxycodone/Acetaminophen 1 tab 02/01/21 23:55 02/09/21 20:35 Oxycodone /Acetaminophen 5-325mg Tab PO 1 tab Q6H PRN Administration Pain, Moderate (4-6) Sodium Chloride 10 ml 02/02/21 10:00 02/10/21 22:41 Sodium Chloride 0.9% 10 Ml Flush Syringe IV 10 ml BID YANELIS Administration Sodium Chloride 10 ml 02/01/21 23:55 Sodium Chloride 0.9% 10 Ml Flush Syringe IV PRN PRN LINE FLUSH Trimethoprim/Sulfamethoxazole 1 each 02/02/21 13:00 02/10/21 12:30 Sulfamethoxazole/Trimethoprim 800/160mg Ds Tab PO 1 each Q24HR YANELIS Administration Protocol Nutrition/Malnutrition Assess - Dietary Evaluation Nutrition/Malnutrition Findings: Nutrition Notes Start: 02/08/21 13:44 Freq: Status: Active Protocol: Document 02/09/21 11:57 GB (Rec: 02/09/21 12:08 GB [email or web address]) Nutrition Notes Need for Assessment generated from: LOS Initial or Follow up Assessment Other Pertinent Diagnosis suididal thoughts/ideation Current Diet cardiac Labs/Tests 02/03: Na 135, BUN 8, Ca 7.8 Pertinent Medications azithromycin Height 6 ft 3 in Weight 81.647 kg [place] Body Weight (kg) 89.09 BMI 22.5 Weight change and time frame No reported weight changes Weight Status Appropriate Subjective/Other Information homeless, no resources Percent of energy/protein needs met: 100% Burn Absent Trauma Absent GI Symptoms None Food Allergy Yes Skin Integrity/Comment mulitple superficial wounds Current % PO Good (75-100%) Minimum of two criteria No #1 Nutrition Diagnosis No nutrition diagnosis at this time As Evidenced by Signs and Symptoms Good PO, no reported weight changes. Documented that pt has limited resources/homeless Is patient on ventilator? No Is Patient Ambulatory and/or Out of Bed Yes REE-([place]-St. Jeor-ambulatory/OOB) [ 2336.230 NUTR.[id number]] Kcal/Kg value to use for calculation 25 Approximate Energy Requirements Using 1 kcal/Kg Calculation Used for Recommendations Kcal/kg Additional Notes Protein: 0.8-1 g/kg @ 82k -82g 1 ml/kcal or per MD Nutrition Intervention Change Diet Order: continue Nutrition Support: n/a Add Supplement/Snack (indicate name/kcal n/a /protein ) Goal #1 PO intake continues at 75% or greater during LOS Follow-Up By: 03/09/21 Revisit per MD consult or patient Sign Off request:
[2021-02-11] MEDS: levoFLOXacin 750 MG TAB PO SCH (11:42)
[2021-02-11] MEDS: SULFAMETHOXAZOLE/TRIMETHOPRIM 800/160MG DS TAB PO SCH (11:42)
[2021-02-11] MEDS: HEPARIN 5,000 UNIT/1 ML VIAL SUB-Q SCH ×2 (11:42→22:00)
[2021-02-11] MEDS: FAMOTIDINE 10 MG TAB PO SCH ×2 (11:42→23:27)
[2021-02-11] MEDS: DOXYCYCLINE 100 MG CAP PO SCH ×2 (11:44→23:28)
[2021-02-11] MEDS: DOCUSATE SODIUM 100 MG CAP PO SCH ×2 (11:44→22:00)
[2021-02-11] MEDS: AQUAPHOR OINTMENT TP SCH ×2 (11:45→16:00)
--- NOTE | 2021-02-11 14:47 | Progress Note ---
Assessment and Plan SARS CoV2 PCR: negative 02/01/2021 blood culture: No growth 02/02/2021 serum cryptococcal antigen: Negative A/P: 45-year-old male with homelessness, HIV/AIDS, not on antiretroviral therapy, anxiety, asthma was admitted to the hospital with suicidal ideation: #Low-grade fever, leukopenia: Could be related to uncontrolled HIV/AIDS. Chest x-ray without any pneumonia, on room air. Evaluate for other occult opportunistic infections. #HIV/AIDS: not on ARVs. CD4 count of 3 in 01/2021. Patient states he was only recently diagnosed. He is not aware of any HIV related community resources. He has no home, no insurance, no money to pay for anything. #Suicidal ideation: Psychiatry cleared pt. #Multiple wounds, skin excoriations, suspected b/l LE cellulitis: Recommend wound care and empiric abx. Etiology of other skin lesions is unclear. Recs: Follow up repeat blood cultures and urine culture Unclear source of new fevers. continue wound care Continue ceftriaxone, vancomycin for now. Complete 5 days Continue PO Bactrim DS 1 tab daily as prophylaxis Continue weekly PO azithromycin 1200 mg as prophylaxis (since it is unclear when he will actually begin ART, added Azithromycin prophylaxis) Given persistent fevers, escalated therapy to vancomycin, cefepime for now. Will need nephrology social worker assistance in providing resources as well as transportation. Patient will need to follow-up at [facility] clinic or [facility] guarded prognosis Angeline Blackmon MD [facility] O: [phone] F: [phone] Subjective Date of service: 02/11/21 Interval history: Febrile to 100.6 with a white count of 2.9. Cultures remain negative. He re ports some soft stools which has improved since requesting his stool softener be held. Objective - Exam Narrative Exam: Physical exam deferred to reduce risk of transmission of COVID-19. Please refer to primary team's note. - Constitutional Vitals: Vital Signs Temp Pulse Resp BP Pulse Ox 98.4 F 84 20 120/75 100 02/11/21 12:28 02/11/21 12:28 02/11/21 12:28 02/11/21 12:28 02/11/21 12:28 Temperature -Last 24 Hours Temperature 98.4 F Temperature 99.1 F Temperature 100.6 F - Labs CBC & Chem 7: 02/10/21 Unknown 02/10/21 Unknown Labs: Abnormal lab results 02/10/21 Range/Units Unknown Lymphocytes % (Manual) 12.0 L (13.4-35.0) % Monocytes % (Manual) 18.0 H (0.0-7.3) % Lymphocytes # (Manual) 0.3 L (1.2-5.4) K/mm3
[2021-02-12] MEDS: ALPRAZolam 0.5 MG TAB PO PRN ×2 (00:15→21:30)
[2021-02-12] MEDS: AQUAPHOR OINTMENT TP SCH ×2 (05:20→15:38)
[2021-02-12] MEDS: levoFLOXacin 750 MG TAB PO SCH (09:19)
[2021-02-12] MEDS: DOXYCYCLINE 100 MG CAP PO SCH ×2 (09:19→21:18)
[2021-02-12] MEDS: DOCUSATE SODIUM 100 MG CAP PO SCH ×3 (09:20→21:30)
[2021-02-12] MEDS: SULFAMETHOXAZOLE/TRIMETHOPRIM 800/160MG DS TAB PO SCH (09:24)
[2021-02-12] MEDS: HEPARIN 5,000 UNIT/1 ML VIAL SUB-Q SCH ×2 (09:28→21:19)
[2021-02-12] MEDS: FAMOTIDINE 10 MG TAB PO SCH ×2 (10:00→21:18)
--- NOTE | 2021-02-12 13:03 | Progress Note ---
Assessment and Plan Assessment and plan: --Suicidal thoughts and ideation; Patient denies suicidal thoughts or ideation today Patient was evaluated for suicidal ideation and later cleared for discharge We will request psych for reevaluation as patient expressed suicidal thoughts and ideation And currently on 1013 status --Persistent fever; resolved, ID following [place] PCR test is negative, chest x-ray on 02/01/2021 -negative for pneumonia Set of cultures are negative 02/01/2021, cryptococcal antigen negative 02/02/2021 We will check new chest x-ray to rule out pneumonia Send new set of urine and blood cultures negative to date Antibiotics per ID --Negative COVID-19 test --HIV AIDS; noncompliant with antiretrovirals, ID following I recommend compliance with medications follow-up visits Health department, [place] Case management to assist with home health/transportation --History of asthma; patient is saturating well on room air, Albuterol as needed --Multiple superficial wounds; wound care --Discharge planning; patient has multiple social issues Homeless, no resources, case management and child and family services specialist trying to secure A place in the local shelters --Requested psych reevaluation today --1013 status/suicidal watch Hold discharge at this point We will closely monitor the patient and adjust management as needed Follow-up psych reevaluation and 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 Patient states his has taken everything from him, and he is now homeless struggling to find food and assisted. Endorses feeling anxious, and depressed and wants to end his life. He states that he has voices in his head telling him to kill himself which started approximately a day ago. While in the ED patient was noted to have a fever and multiple excoriations throughout his body. Additionally he complains of generalized body pain. Endorses feeling itchy and as a result he continues to scratch his body, which has contributed to the multiple excoriations noted. 02/02: Patient remains clinically stable, awaiting COVID19 TESTING RESULT. Psych input noted, cleared as patient denies suicidal ideation. Wound management. Anticipate discharge in am if COVID19 is negative. Replace K. 02/03: Patient still with low grade fever, Negative COVID 19 TEST, per ID, - Antibiotics switched to ceftriaxone -P.O. Bactrim ordered for prophylaxis -LDH, Fungitell, serum cryptococcal antigen ordered. Continue supportive care. 02/04: Patient seen and examined today no acute distress still with skin excoriation dry skin etiology of skin lesions is unclear if this needs to be evaluated outpatient. Patient was seen by ID and was recommended and treated with ceftriaxone and vancomycin also p.o. Bactrim DS 1 tab daily for prophylaxis and azithromycin 1200 mg as prophylaxis. (since it is unclear when he will actually begin ART, added Azithromycin prophylaxis) If he remains afebrile, may discharge on PO Keflex 500 mg QID plus doxycycline 100 mg BID x 10 days Patient's leukopenia was felt to be secondary to uncontrolled HIV/AIDS chest x- ray was without pneumonia and is on room air doing well no other options infection is noted. Patient was cleared by psychiatry for suicidal ideation. He tolerated ceftriaxone here just the reason why Keflex has been added to his medication regimen. I did discuss with social workers for assistance in providing him resources on for placement and also transportation Patient will need to follow-up at [facility] or [facility] guarded prognosis 02/05: Patient has been discharged awaiting placement. My anticipation is with the patient will go to [facility] [place] [facility] out of the assisted. He continues to refuse treatment while in house here. 02/06: Awaiting safe discharge. Continue supportive care, counselling provided to comply with treatment 02/07: Patient seen and examined resting comfortably Case management working with him have ordered a wheelchair unfortunately the company bringing it was going to take it to his previous address in [place] that has been corrected and I will bring it here for him to go to a assisted and then follow-up with his doctors as 02/08/2021; patient is medically stable for discharge Multiple social issues, homeless, assisted placement 02/09/2021; patient reported to the nurse that he has full suicidal thoughts and ideation Patient had similar symptoms at the time of admission, psych has evaluated and cleared for discharge We will place him 1013 again and reconsult psych, hold discharge at this point Follow psych recommendations ; persistent fevers, ID adjusted antibiotics Follow cultures, x-ray negative for pneumonia Psych following, poor prognosis 02/11; DC planning per case management Patient is homeless, placement issues 02/12; patient is 1013, pending psych reevaluation Pending psych clearance, DC planning Case management Homeless placement issues Medically stable for discharge History Interval history: I have seen and examined the patient at the bedside Patient feels better denies suicidal thoughts or ideation Pending psych evaluation Hospitalist Physical - Constitutional Vitals: Temp Pulse Resp BP Pulse Ox 98.3 F 108 H 18 134/77 100 02/12/21 11:05 02/12/21 11:05 02/12/21 11:05 02/12/21 11:05 02/12/21 11:05 General appearance: Present: no acute distress, well-nourished - EENT Eyes: Present: PERRL, EOM intact - Neck Neck: Present: supple, normal ROM - Respiratory Respiratory effort: normal Respiratory: bilateral: diminished, negative: rales, rhonchi, wheezing - Cardiovascular Rhythm: regular Heart Sounds: Present: S1 & S2 - Extremities Extremities: no ischemia, No edema - Abdominal General gastrointestinal: soft, non-tender, non-distended, normal bowel sounds - Integumentary Integumentary: Present: clear, warm - Psychiatric Psychiatric: appropriate mood/affect, memory intact - Neurologic Neurologic: CNII-XII intact, moves all extremities Results - Labs CBC & Chem 7: 02/10/21 Unknown 02/10/21 Unknown Labs: Laboratory Last Values WBC 2.9 K/mm3 (4.5-11.0) L 02/10/21 Unknown RBC 2.57 M/mm3 (3.65-5.03) L 02/10/21 Unknown Hgb 7.2 gm/dl (11.8-15.2) L 02/10/21 Unknown Hct 21.5 % (35.5-45.6) L 02/10/21 Unknown MCV 84 fl (84-94) 02/10/21 Unknown MCH 28 pg (28-32) 02/10/21 Unknown MCHC 33 % (32-34) 02/10/21 Unknown RDW 16.7 % (13.2-15.2) H 02/10/21 Unknown Plt Count 275 K/mm3 (140-440) 02/10/21 Unknown [place] % (Auto) [place] Dealer 02/10/21 Unknown Add Manual Diff Complete 02/10/21 Unknown Total Counted 100 02/10/21 Unknown Seg Neuts % (Manual) 66.0 % (40.0-70.0) 02/10/21 Unknown Band Neutrophils % 1.0 % 02/10/21 Unknown Lymphocytes % (Manual) 12.0 % (13.4-35.0) L 02/10/21 Unknown Monocytes % (Manual) 18.0 % (0.0-7.3) H 02/10/21 Unknown Eosinophils % (Manual) 3.0 % (0.0-4.3) 02/10/21 Unknown Nucleated RBC % Not Reportable 02/10/21 Unknown Seg Neutrophils # Man 1.9 K/mm3 (1.8-7.7) 02/10/21 Unknown Band Neutrophils # 0.0 K/mm3 02/10/21 Unknown Lymphocytes # (Manual) 0.3 K/mm3 (1.2-5.4) L 02/10/21 Unknown Abs React Lymphs (Man) 0.0 K/mm3 02/10/21 Unknown Monocytes # (Manual) 0.5 K/mm3 (0.0-0.8) 02/10/21 Unknown Eosinophils # (Manual) 0.1 K/mm3 (0.0-0.4) 02/10/21 Unknown Basophils # (Manual) 0.0 K/mm3 (0.0-0.1) 02/10/21 Unknown Metamyelocytes # 0.0 K/mm3 02/10/21 Unknown Myelocytes # 0.0 K/mm3 02/10/21 Unknown Promyelocytes # 0.0 K/mm3 02/10/21 Unknown Blast Cells # 0.0 K/mm3 02/10/21 Unknown WBC Morphology Not Reportable 02/10/21 Unknown Hypersegmented Neuts Not Reportable 02/10/21 Unknown Hyposegmented Neuts Not Reportable 02/10/21 Unknown Hypogranular Neuts Not Reportable 02/10/21 Unknown Smudge Cells Not Reportable 02/10/21 Unknown Toxic Granulation Not Reportable 02/10/21 Unknown Toxic Vacuolation Not Reportable 02/10/21 Unknown Dohle Bodies Not Reportable 02/10/21 Unknown Pelger-Huet Anomaly Not Reportable 02/10/21 Unknown Steffi Rods Not Reportable 02/10/21 Unknown Platelet Estimate Consistent w auto 02/10/21 Unknown Clumped Platelets Not Reportable 02/10/21 Unknown Plt Clumps, EDTA Not Reportable 02/10/21 Unknown Large Platelets Not Reportable 02/10/21 Unknown Giant Platelets Not Reportable 02/10/21 Unknown Platelet Satelliting Not Reportable 02/10/21 Unknown Plt Morphology Comment Not Reportable 02/10/21 Unknown RBC Morphology Not Reportable 02/10/21 Unknown Dimorphic RBCs Not Reportable 02/10/21 Unknown Polychromasia Not Reportable 02/10/21 Unknown Hypochromasia Not Reportable 02/10/21 Unknown Poikilocytosis Not Reportable 02/10/21 Unknown Anisocytosis Not Reportable 02/10/21 Unknown Microcytosis Not Reportable 02/10/21 Unknown Macrocytosis Not Reportable 02/10/21 Unknown Spherocytes Not Reportable 02/10/21 Unknown Pappenheimer Bodies Not Reportable 02/10/21 Unknown Sickle Cells Not Reportable 02/10/21 Unknown Target Cells Not Reportable 02/10/21 Unknown Tear Drop Cells Not Reportable 02/10/21 Unknown Ovalocytes Not Reportable 02/10/21 Unknown Helmet Cells Not Reportable 02/10/21 Unknown [place] Bodies Not Reportable 02/10/21 Unknown [place] Rings Not Reportable 02/10/21 Unknown Praveena Cells Not Reportable 02/10/21 Unknown Bite Cells Not Reportable 02/10/21 Unknown Crenated Cell Not Reportable 02/10/21 Unknown Elliptocytes Not Reportable 02/10/21 Unknown Acanthocytes (Spur) Not Reportable 02/10/21 Unknown Rouleaux Not Reportable 02/10/21 Unknown Hemoglobin C Crystals Not Reportable 02/10/21 Unknown Schistocytes Not Reportable 02/10/21 Unknown Malaria parasites Not Reportable 02/10/21 Unknown Josue Bodies Not Reportable 02/10/21 Unknown Hem Pathologist Commnt No 02/10/21 Unknown Sodium 132 mmol/L (137-145) L 02/10/21 Unknown Potassium 4.0 mmol/L (3.6-5.0) 02/10/21 Unknown Chloride 98.2 mmol/L (98-107) 02/10/21 Unknown Carbon Dioxide 22 mmol/L (22-30) 02/10/21 Unknown Anion Gap 16 mmol/L 02/10/21 Unknown BUN 17 mg/dL (9-20) 02/10/21 Unknown Creatinine 1.2 mg/dL (0.8-1.3) 02/10/21 Unknown Estimated GFR > 60 ml/min 02/10/21 Unknown BUN/Creatinine Ratio 14 % 02/10/21 Unknown Glucose 106 mg/dL (75-100) H 02/10/21 Unknown Lactic Acid 0.50 mmol/L (0.7-2.0) L 02/02/21 00:41 Calcium 8.6 mg/dL (8.4-10.2) 02/10/21 Unknown Total Bilirubin 0.30 mg/dL (0.1-1.2) 02/01/21 20:54 AST 23 units/L (5-40) 02/01/21 20:54 ALT 11 units/L (7-56) 02/01/21 20:54 Alkaline Phosphatase 55 units/L (35-129) 02/01/21 20:54 Total Protein 7.2 g/dL (6.3-8.2) 02/01/21 20:54 Albumin 3.3 g/dL (3.9-5) L 02/01/21 20:54 Albumin/Globulin Ratio 0.8 % 02/01/21 20:54 Urine Color Yellow (Yellow) 02/02/21 02:00 Urine Turbidity Slightly-cloudy (Clear) 02/02/21 02:00 Urine pH 6.0 (5.0-7.0) 02/02/21 02:00 Ur Specific [place] 1.011 (1.003-1.030) 02/02/21 02:00 Urine Protein 30 mg/dl mg/dL (Negative) 02/02/21 02:00 Urine Glucose (UA) Neg mg/dL (Negative) 02/02/21 02:00 Urine Ketones Neg mg/dL (Negative) 02/02/21 02:00 Urine Blood Neg (Negative) 02/02/21 02:00 Urine Nitrite Neg (Negative) 02/02/21 02:00 Urine Bilirubin Neg (Negative) 02/02/21 02:00 Urine Urobilinogen < 2.0 mg/dL (<2.0) 02/02/21 02:00 Ur Leukocyte Esterase Neg (Negative) 02/02/21 02:00 Urine WBC (Auto) 3.0 /HPF (0.0-6.0) 02/10/21 07:00 Urine RBC (Auto) 3.0 /HPF (0.0-6.0) 02/10/21 07:00 U Epithel Cells (Auto) 5.0 /HPF (0-13.0) 02/10/21 07:00 Urine Mucus Few /HPF 02/02/21 02:00 Urine Yeast (Budding) Few /HPF 02/02/21 02:00 Salicylates < 0.3 mg/dL (2.8-20.0) L 02/01/21 17:21 Urine Opiates Screen Presumptive negative 02/02/21 02:00 Urine Methadone Screen Presumptive negative 02/02/21 02:00 Acetaminophen 5.0 ug/mL (10.0-30.0) L 02/01/21 17:21 Ur Barbiturates Screen Presumptive negative 02/02/21 02:00 Ur Phencyclidine Scrn Presumptive negative 02/02/21 02:00 Ur Amphetamines Screen Presumptive negative 02/02/21 02:00 U Benzodiazepines Scrn Presumptive negative 02/02/21 02:00 Urine Cocaine Screen Presumptive negative 02/02/21 02:00 U Marijuana (THC) Screen Presumptive negative 02/02/21 02:00 Drugs of Abuse Note Disclamer 02/02/21 02:00 Coronavirus (PCR) Negative (Negative) 02/02/21 Unknown Miscellaneous Test Flexitest 1 02/02/21 Unknown Microbiology: Microbiology 02/09/21 Unknown Urine,Clean Catch Urine Culture - Final 02/09/21 13:57 Peripheral/Venous Blood Culture - Preliminary NO GROWTH AFTER 48 HOURS 02/09/21 13:57 Peripheral/Venous Blood Culture - Preliminary NO GROWTH AFTER 48 HOURS [place]/IV: Voiding Method Urinal Active Medications - Current Medications Current Medications: Generic Name Dose Route Start Last Admin Trade Name Freq PRN Reason Stop Dose Admin Acetaminophen 650 mg 02/01/21 23:55 02/10/21 09:13 Acetaminophen 325 Mg Tab PO 650 mg Q4H PRN Administration Pain MILD(1-3)/Fever >100.5/STEPHENS Albuterol 2 puff 02/02/21 04:00 Albuterol 8.5 Gm Mdi Inhalation IH Q4HRT PRN Shortness Of Breath Alprazolam 0.5 mg 02/01/21 23:55 02/12/21 00:15 Alprazolam 0.5 Mg Tab PO 0.5 mg Q8H PRN Administration Anxiety Azithromycin 1,200 mg 02/03/21 16:00 02/10/21 17:05 Azithromycin 600 Mg Tab PO 1,200 mg Th@1600 YANELIS Administration Protocol Diphenhydramine HCl 25 mg 02/06/21 15:00 02/06/21 22:57 Diphenhydramine 25 Mg Cap PO 25 mg Q6H PRN Administration Itching Docusate Sodium 100 mg 02/02/21 10:00 02/12/21 09:20 Docusate Sodium 100 Mg Cap PO 100 mg BID YANELIS Administration Doxycycline Hyclate 100 mg 02/10/21 22:00 02/12/21 09:19 Doxycycline 100 Mg Cap PO 100 mg BID [facility] Administration Protocol Famotidine 10 mg 02/02/21 10:00 02/12/21 10:00 Famotidine 10 Mg Tab PO 10 mg BID YANELIS Administration Heparin Sodium (Porcine) 5,000 unit 02/02/21 10:00 02/12/21 09:28 Heparin 5,000 Unit/1 Ml Vial SUB-Q Not Given Q12HR [facility] Hydrophilic Ointment 1 applic 02/06/21 16:00 02/12/21 05:20 Aquaphor Ointment TP Not Given Q12H [facility] Levofloxacin 750 mg 02/10/21 14:00 02/12/21 09:19 Levofloxacin 750 Mg Tab PO 750 mg Q24HR [facility] Administration Protocol Naloxone HCl 0.1 mg 02/01/21 22:55 Naloxone 0.4 Mg/1 Ml Inj IV Q2MIN PRN Res Rate </= 8 or 02 SAT < 92% Ondansetron HCl 4 mg 02/01/21 23:55 Ondansetron 4 Mg/2 Ml Inj IV Q6H PRN Nausea And Vomiting Oxycodone/Acetaminophen 1 tab 02/01/21 23:55 02/09/21 20:35 Oxycodone /Acetaminophen 5-325mg Tab PO 1 tab Q6H PRN Administration Pain, Moderate (4-6) Sodium Chloride 10 ml 02/02/21 10:00 02/12/21 09:21 Sodium Chloride 0.9% 10 Ml Flush Syringe IV 10 ml BID YANELIS Administration Sodium Chloride 10 ml 02/01/21 23:55 Sodium Chloride 0.9% 10 Ml Flush Syringe IV PRN PRN LINE FLUSH Trimethoprim/Sulfamethoxazole 1 each 02/02/21 13:00 02/12/21 09:24 Sulfamethoxazole/Trimethoprim 800/160mg Ds Tab PO 1 each Q24HR YANELIS Administration Protocol Nutrition/Malnutrition Assess - Dietary Evaluation Nutrition/Malnutrition Findings: Nutrition Notes Start: 02/08/21 13:44 Freq: Status: Active Protocol: Document 02/09/21 11:57 GB (Rec: 02/09/21 12:08 GB [id number]) Nutrition Notes Need for Assessment generated from: LOS Initial or Follow up Assessment Other Pertinent Diagnosis suididal thoughts/ideation Current Diet cardiac Labs/Tests 02/03: Na 135, BUN 8, Ca 7.8 Pertinent Medications azithromycin Height 6 ft 3 in Weight 81.647 kg [place] Body Weight (kg) 89.09 BMI 22.5 Weight change and time frame No reported weight changes Weight Status Appropriate Subjective/Other Information homeless, no resources Percent of energy/protein needs met: 100% Burn Absent Trauma Absent GI Symptoms None Food Allergy Yes Skin Integrity/Comment mulitple superficial wounds Current % PO Good (75-100%) Minimum of two criteria No #1 Nutrition Diagnosis No nutrition diagnosis at this time As Evidenced by Signs and Symptoms Good PO, no reported weight changes. Documented that pt has limited resources/homeless Is patient on ventilator? No Is Patient Ambulatory and/or Out of Bed Yes REE-([facility]-ambulatory/OOB) [ 2336.230 [id number]] Kcal/Kg value to use for calculation 25 Approximate Energy Requirements Using 1 kcal/Kg Calculation Used for Recommendations Kcal/kg Additional Notes Protein: 0.8-1 g/kg @ 82k -82g 1 ml/kcal or per MD Nutrition Intervention Change Diet Order: continue Nutrition Support: n/a Add Supplement/Snack (indicate name/kcal n/a /protein ) Goal #1 PO intake continues at 75% or greater during LOS Follow-Up By: 03/09/21 Revisit per MD consult or patient Sign Off request:
[2021-02-13] MEDS: AQUAPHOR OINTMENT TP SCH ×2 (04:24→16:23)
[2021-02-13] MEDS: SULFAMETHOXAZOLE/TRIMETHOPRIM 800/160MG DS TAB PO SCH (09:00)
[2021-02-13] MEDS: levoFLOXacin 750 MG TAB PO SCH (09:00)
[2021-02-13] MEDS: FAMOTIDINE 10 MG TAB PO SCH ×2 (09:00→22:00)
[2021-02-13] MEDS: DOXYCYCLINE 100 MG CAP PO SCH ×2 (09:00→22:00)
[2021-02-13] MEDS: HEPARIN 5,000 UNIT/1 ML VIAL SUB-Q SCH ×2 (09:04→22:00)
[2021-02-13] MEDS: DOCUSATE SODIUM 100 MG CAP PO SCH ×2 (09:04→22:00)
--- NOTE | 2021-02-13 13:32 | Progress Note ---
Assessment and Plan Assessment and plan: --Suicidal thoughts and ideation; Patient denies suicidal thoughts or ideation today Patient was evaluated for suicidal ideation and later cleared for discharge Follow reevaluation by psych, and if cleared, will plan discharge And currently on 1013 status --Persistent fever; resolved, [place] PCR test is negative, chest x-ray on 02/01/2021 -negative for pneumonia Set of cultures are negative 02/01/2021, cryptococcal antigen negative 02/02/2021 We will check new chest x-ray to rule out pneumonia Send new set of urine and blood cultures negative to date Antibiotics per ID --Negative COVID-19 test --HIV AIDS; noncompliant with antiretrovirals, ID following I recommend compliance with medications follow-up visits Health department, [place] Case management to assist with home health/transportation --History of asthma; patient is saturating well on room air, Albuterol as needed --Multiple superficial wounds; wound care --Discharge planning; patient has multiple social issues Homeless, no resources, case management and social services manager trying to secure A place in the local shelters --Requested psych reevaluation today --1013 status/suicidal watch Hold discharge at this point We will closely monitor the patient and adjust management as needed Follow-up psych reevaluation and recommendations prop sawyer at the bedside Patient is medically stable, disposition per psych DC planning per case management[multiple social and placement issues, patient is homeless] Brief history and hospital course: 45-year-old homeless male with history of AIDS, anxiety, and asthma who presented at [facility] ED with complaints of suicidal ideation. Patient states his has taken everything from him, and he is now homeless struggling to find food and [place] [facility]. Endorses feeling anxious, and depressed and wants to end his life. He states that he has voices in his head telling him to kill himself which started approximately a day ago. While in the ED patient was noted to have a fever and multiple excoriations throughout his body. Additionally he complains of generalized body pain. Endorses feeling itchy and as a result he continues to scratch his body, which has contributed to the multiple excoriations noted. 02/02: Patient remains clinically stable, awaiting COVID19 TESTING RESULT. Psych input noted, cleared as patient denies suicidal ideation. Wound management. An ticipate discharge in am if COVID19 is negative. Replace K. 02/03: Patient still with low grade fever, Negative COVID 19 TEST, per ID, - Antibiotics switched to ceftriaxone -P.O. Bactrim ordered for prophylaxis -LDH, Fungitell, serum cryptococcal antigen ordered. Continue supportive care. 02/04: Patient seen and examined today no acute distress still with skin excoriation dry skin etiology of skin lesions is unclear if this needs to be evaluated outpatient. Patient was seen by ID and was recommended and treated with ceftriaxone and vancomycin also p.o. Bactrim DS 1 tab daily for prophylaxis and azithromycin 1200 mg as prophylaxis. (since it is unclear when he will actually begin ART, added Azithromycin prophylaxis) If he remains afebrile, may discharge on PO Keflex 500 mg QID plus doxycycline 100 mg BID x 10 days Patient's leukopenia was felt to be secondary to uncontrolled HIV/AIDS chest x- ray was without pneumonia and is on room air doing well no other options infection is noted. Patient was cleared by psychiatry for suicidal ideation. He tolerated ceftriaxone here just the reason why Keflex has been added to his medication regimen. I did discuss with social workers for assistance in providing him resources on for placement and also transportation Patient will need to follow-up at [facility] or [facility] guarded prognosis 02/05: Patient has been discharged awaiting placement. My anticipation is with the patient will go to personal [facility] of the [place] [facility]. He continues to refuse treatment while in house here. 02/06: Awaiting safe discharge. Continue supportive care, counselling provided to comply with treatment 02/07: Patient seen and examined resting comfortably Case management working with him have ordered a wheelchair unfortunately the company bringing it was going to take it to his previous address in [place] that has been corrected and I will bring it here for him to go to a [place] [facility] and then follow-up with his doctors as 02/08/2021; patient is medically stable for discharge Multiple social issues, homeless, [place] [facility] placement 02/09/2021; patient reported to the nurse that he has full suicidal thoughts and ideation Patient had similar symptoms at the time of admission, psych has evaluated and cleared for discharge We will place him 1013 again and reconsult psych, hold discharge at this point Follow psych recommendations ; persistent fevers, ID adjusted antibiotics Follow cultures, x-ray negative for pneumonia Psych following, poor prognosis 02/11; DC planning per case management Patient is homeless, placement issues 02/12; patient is 1013, pending psych reevaluation Pending psych clearance, DC planning Case management Homeless placement issues Medically stable for discharge 02/13; patient is medically stable for discharge Pending psych evaluation and clearance Case management to assist with DC planning Possible discharge tomorrow History Interval history: I seen and examined the patient at the bedside Patient's chart and medications reviewed Patient feels better Denies any suicidal thoughts or ideation Reports that he is homeless Hospitalist Physical - Constitutional Vitals: Temp Pulse Resp BP Pulse Ox 97.9 F 99 H 20 121/79 100 02/13/21 12:03 02/13/21 12:03 02/13/21 12:03 02/13/21 12:03 02/13/21 12:03 General appearance: Present: no acute distress, well-nourished - EENT Eyes: Present: PERRL, EOM intact - Neck Neck: Present: supple, normal ROM - Respiratory Respiratory effort: normal Respiratory: bilateral: diminished, negative: rales, rhonchi, wheezing - Cardiovascular Rhythm: regular Heart Sounds: Present: S1 & S2 - Extremities Extremities: no ischemia, No edema - Abdominal General gastrointestinal: soft, non-tender, non-distended, normal bowel sounds - Integumentary Integumentary: Present: clear, warm - Psychiatric Psychiatric: appropriate mood/affect, cooperative - Neurologic Neurologic: CNII-XII intact, moves all extremities Results - Labs CBC & Chem 7: 02/10/21 Unknown 02/10/21 Unknown Labs: Laboratory Last Values WBC 2.9 K/mm3 (4.5-11.0) L 02/10/21 Unknown RBC 2.57 M/mm3 (3.65-5.03) L 02/10/21 Unknown Hgb 7.2 gm/dl (11.8-15.2) L 02/10/21 Unknown Hct 21.5 % (35.5-45.6) L 02/10/21 Unknown MCV 84 fl (84-94) 02/10/21 Unknown MCH 28 pg (28-32) 02/10/21 Unknown MCHC 33 % (32-34) 02/10/21 Unknown RDW 16.7 % (13.2-15.2) H 02/10/21 Unknown Plt Count 275 K/mm3 (140-440) 02/10/21 Unknown [place] % (Auto) Wind Instrument Repairer 02/10/21 Unknown Add Manual Diff Complete 02/10/21 Unknown Total Counted 100 02/10/21 Unknown Seg Neuts % (Manual) 66.0 % (40.0-70.0) 02/10/21 Unknown Band Neutrophils % 1.0 % 02/10/21 Unknown Lymphocytes % (Manual) 12.0 % (13.4-35.0) L 02/10/21 Unknown Monocytes % (Manual) 18.0 % (0.0-7.3) H 02/10/21 Unknown Eosinophils % (Manual) 3.0 % (0.0-4.3) 02/10/21 Unknown Nucleated RBC % Not Reportable 02/10/21 Unknown Seg Neutrophils # Man 1.9 K/mm3 (1.8-7.7) 02/10/21 Unknown Band Neutrophils # 0.0 K/mm3 02/10/21 Unknown Lymphocytes # (Manual) 0.3 K/mm3 (1.2-5.4) L 02/10/21 Unknown Abs React Lymphs (Man) 0.0 K/mm3 02/10/21 Unknown Monocytes # (Manual) 0.5 K/mm3 (0.0-0.8) 02/10/21 Unknown Eosinophils # (Manual) 0.1 K/mm3 (0.0-0.4) 02/10/21 Unknown Basophils # (Manual) 0.0 K/mm3 (0.0-0.1) 02/10/21 Unknown Metamyelocytes # 0.0 K/mm3 02/10/21 Unknown Myelocytes # 0.0 K/mm3 02/10/21 Unknown Promyelocytes # 0.0 K/mm3 02/10/21 Unknown Blast Cells # 0.0 K/mm3 02/10/21 Unknown WBC Morphology Not Reportable 02/10/21 Unknown Hypersegmented Neuts Not Reportable 02/10/21 Unknown Hyposegmented Neuts Not Reportable 02/10/21 Unknown Hypogranular Neuts Not Reportable 02/10/21 Unknown Smudge Cells Not Reportable 02/10/21 Unknown Toxic Granulation Not Reportable 02/10/21 Unknown Toxic Vacuolation Not Reportable 02/10/21 Unknown Dohle Bodies Not Reportable 02/10/21 Unknown Pelger-Huet Anomaly Not Reportable 02/10/21 Unknown Steffi Rods Not Reportable 02/10/21 Unknown Platelet Estimate Consistent w auto 02/10/21 Unknown Clumped Platelets Not Reportable 02/10/21 Unknown Plt Clumps, EDTA Not Reportable 02/10/21 Unknown Large Platelets Not Reportable 02/10/21 Unknown Giant Platelets Not Reportable 02/10/21 Unknown Platelet Satelliting Not Reportable 02/10/21 Unknown Plt Morphology Comment Not Reportable 02/10/21 Unknown RBC Morphology Not Reportable 02/10/21 Unknown Dimorphic RBCs Not Reportable 02/10/21 Unknown Polychromasia Not Reportable 02/10/21 Unknown Hypochromasia Not Reportable 02/10/21 Unknown Poikilocytosis Not Reportable 02/10/21 Unknown Anisocytosis Not Reportable 02/10/21 Unknown Microcytosis Not Reportable 02/10/21 Unknown Macrocytosis Not Reportable 02/10/21 Unknown Spherocytes Not Reportable 02/10/21 Unknown Pappenheimer Bodies Not Reportable 02/10/21 Unknown Sickle Cells Not Reportable 02/10/21 Unknown Target Cells Not Reportable 02/10/21 Unknown Tear Drop Cells Not Reportable 02/10/21 Unknown Ovalocytes Not Reportable 02/10/21 Unknown Helmet Cells Not Reportable 02/10/21 Unknown [place] Bodies Not Reportable 02/10/21 Unknown [place] Rings Not Reportable 02/10/21 Unknown Praveena Cells Not Reportable 02/10/21 Unknown Bite Cells Not Reportable 02/10/21 Unknown Crenated Cell Not Reportable 02/10/21 Unknown Elliptocytes Not Reportable 02/10/21 Unknown Acanthocytes (Spur) Not Reportable 02/10/21 Unknown Rouleaux Not Reportable 02/10/21 Unknown Hemoglobin C Crystals Not Reportable 02/10/21 Unknown Schistocytes Not Reportable 02/10/21 Unknown Malaria parasites Not Reportable 02/10/21 Unknown Josue Bodies Not Reportable 02/10/21 Unknown Hem Pathologist Commnt No 02/10/21 Unknown Sodium 132 mmol/L (137-145) L 02/10/21 Unknown Potassium 4.0 mmol/L (3.6-5.0) 02/10/21 Unknown Chloride 98.2 mmol/L (98-107) 02/10/21 Unknown Carbon Dioxide 22 mmol/L (22-30) 02/10/21 Unknown Anion Gap 16 mmol/L 02/10/21 Unknown BUN 17 mg/dL (9-20) 02/10/21 Unknown Creatinine 1.2 mg/dL (0.8-1.3) 02/10/21 Unknown Estimated GFR > 60 ml/min 02/10/21 Unknown BUN/Creatinine Ratio 14 % 02/10/21 Unknown Glucose 106 mg/dL (75-100) H 02/10/21 Unknown Lactic Acid 0.50 mmol/L (0.7-2.0) L 02/02/21 00:41 Calcium 8.6 mg/dL (8.4-10.2) 02/10/21 Unknown Total Bilirubin 0.30 mg/dL (0.1-1.2) 02/01/21 20:54 AST 23 units/L (5-40) 02/01/21 20:54 ALT 11 units/L (7-56) 02/01/21 20:54 Alkaline Phosphatase 55 units/L (35-129) 02/01/21 20:54 Total Protein 7.2 g/dL (6.3-8.2) 02/01/21 20:54 Albumin 3.3 g/dL (3.9-5) L 02/01/21 20:54 Albumin/Globulin Ratio 0.8 % 02/01/21 20:54 Urine Color Yellow (Yellow) 02/02/21 02:00 Urine Turbidity Slightly-cloudy (Clear) 02/02/21 02:00 Urine pH 6.0 (5.0-7.0) 02/02/21 02:00 Ur Specific [place] 1.011 (1.003-1.030) 02/02/21 02:00 Urine Protein 30 mg/dl mg/dL (Negative) 02/02/21 02:00 Urine Glucose (UA) Neg mg/dL (Negative) 02/02/21 02:00 Urine Ketones Neg mg/dL (Negative) 02/02/21 02:00 Urine Blood Neg (Negative) 02/02/21 02:00 Urine Nitrite Neg (Negative) 02/02/21 02:00 Urine Bilirubin Neg (Negative) 02/02/21 02:00 Urine Urobilinogen < 2.0 mg/dL (<2.0) 02/02/21 02:00 Ur Leukocyte Esterase Neg (Negative) 02/02/21 02:00 Urine WBC (Auto) 3.0 /HPF (0.0-6.0) 02/10/21 07:00 Urine RBC (Auto) 3.0 /HPF (0.0-6.0) 02/10/21 07:00 U Epithel Cells (Auto) 5.0 /HPF (0-13.0) 02/10/21 07:00 Urine Mucus Few /HPF 02/02/21 02:00 Urine Yeast (Budding) Few /HPF 02/02/21 02:00 Salicylates < 0.3 mg/dL (2.8-20.0) L 02/01/21 17:21 Urine Opiates Screen Presumptive negative 02/02/21 02:00 Urine Methadone Screen Presumptive negative 02/02/21 02:00 Acetaminophen 5.0 ug/mL (10.0-30.0) L 02/01/21 17:21 Ur Barbiturates Screen Presumptive negative 02/02/21 02:00 Ur Phencyclidine Scrn Presumptive negative 02/02/21 02:00 Ur Amphetamines Screen Presumptive negative 02/02/21 02:00 U Benzodiazepines Scrn Presumptive negative 02/02/21 02:00 Urine Cocaine Screen Presumptive negative 02/02/21 02:00 U Marijuana (THC) Screen Presumptive negative 02/02/21 02:00 Drugs of Abuse Note Disclamer 02/02/21 02:00 Coronavirus (PCR) Negative (Negative) 02/02/21 Unknown Miscellaneous Test Flexitest 1 02/02/21 Unknown Microbiology: Microbiology 02/09/21 13:57 Peripheral/Venous Blood Culture - Preliminary NO GROWTH AFTER 72 HOURS 02/09/21 13:57 Peripheral/Venous Blood Culture - Preliminary NO GROWTH AFTER 72 HOURS 02/09/21 Unknown Urine,Clean Catch Urine Culture - Final North/IV: Voiding Method Diaper Active Medications - Current Medications Current Medications: Generic Name Dose Route Start Last Admin Trade Name Freq PRN Reason Stop Dose Admin Acetaminophen 650 mg 02/01/21 23:55 02/10/21 09:13 Acetaminophen 325 Mg Tab PO 650 mg Q4H PRN Administration Pain MILD(1-3)/Fever >100.5/STEPHENS Albuterol 2 puff 02/02/21 04:00 Albuterol 8.5 Gm Mdi Inhalation IH Q4HRT PRN Shortness Of Breath Alprazolam 0.5 mg 02/01/21 23:55 02/12/21 21:30 Alprazolam 0.5 Mg Tab PO 0.5 mg Q8H PRN Administration Anxiety Azithromycin 1,200 mg 02/03/21 16:00 02/10/21 17:05 Azithromycin 600 Mg Tab PO 1,200 mg Th@1600 [facility] Administration Protocol Diphenhydramine HCl 25 mg 02/06/21 15:00 02/06/21 22:57 Diphenhydramine 25 Mg Cap PO 25 mg Q6H PRN Administration Itching Docusate Sodium 100 mg 02/02/21 10:00 02/13/21 09:04 Docusate Sodium 100 Mg Cap PO Not Given BID [facility] Doxycycline Hyclate 100 mg 02/10/21 22:00 02/13/21 09:00 Doxycycline 100 Mg Cap PO 100 mg BID [facility] Administration Protocol Famotidine 10 mg 02/02/21 10:00 02/13/21 09:00 Famotidine 10 Mg Tab PO 10 mg BID [facility] Administration Heparin Sodium (Porcine) 5,000 unit 02/02/21 10:00 02/13/21 09:04 Heparin 5,000 Unit/1 Ml Vial SUB-Q Not Given Q12HR [facility] Hydrophilic Ointment 1 applic 02/06/21 16:00 02/13/21 04:24 Aquaphor Ointment TP 1 applic Q12H [facility] Administration Levofloxacin 750 mg 02/10/21 14:00 02/13/21 09:00 Levofloxacin 750 Mg Tab PO 750 mg Q24HR [facility] Administration Protocol Naloxone HCl 0.1 mg 02/01/21 22:55 Naloxone 0.4 Mg/1 Ml Inj IV Q2MIN PRN Res Rate </= 8 or 02 SAT < 92% Ondansetron HCl 4 mg 02/01/21 23:55 Ondansetron 4 Mg/2 Ml Inj IV Q6H PRN Nausea And Vomiting Oxycodone/Acetaminophen 1 tab 02/01/21 23:55 02/09/21 20:35 Oxycodone /Acetaminophen 5-325mg Tab PO 1 tab Q6H PRN Administration Pain, Moderate (4-6) Sodium Chloride 10 ml 02/02/21 10:00 02/13/21 09:01 Sodium Chloride 0.9% 10 Ml Flush Syringe IV 10 ml BID YANELIS Administration Sodium Chloride 10 ml 02/01/21 23:55 Sodium Chloride 0.9% 10 Ml Flush Syringe IV PRN PRN LINE FLUSH Trimethoprim/Sulfamethoxazole 1 each 02/02/21 13:00 02/13/21 09:00 Sulfamethoxazole/Trimethoprim 800/160mg Ds Tab PO 1 each Q24HR YANELIS Administration Protocol Nutrition/Malnutrition Assess - Dietary Evaluation Nutrition/Malnutrition Findings: Nutrition Notes Start: 02/08/21 13:44 Freq: Status: Active Protocol: Document 02/09/21 11:57 GB (Rec: 02/09/21 12:08 GB [id number]) Nutrition Notes Need for Assessment generated from: LOS Initial or Follow up Assessment Other Pertinent Diagnosis suididal thoughts/ideation Current Diet cardiac Labs/Tests 02/03: Na 135, BUN 8, Ca 7.8 Pertinent Medications azithromycin Height 6 ft 3 in Weight 81.647 kg [place] Body Weight (kg) 89.09 BMI 22.5 Weight change and time frame No reported weight changes Weight Status Appropriate Subjective/Other Information homeless, no resources Percent of energy/protein needs met: 100% Burn Absent Trauma Absent GI Symptoms None Food Allergy Yes Skin Integrity/Comment mulitple superficial wounds Current % PO Good (75-100%) Minimum of two criteria No #1 Nutrition Diagnosis No nutrition diagnosis at this time As Evidenced by Signs and Symptoms Good PO, no reported weight changes. Documented that pt has limited resources/homeless Is patient on ventilator? No Is Patient Ambulatory and/or Out of Bed Yes REE-([facility]-ambulatory/OOB) [ 2336.230 [id number]] Kcal/Kg value to use for calculation 25 Approximate Energy Requirements Using 1 kcal/Kg Calculation Used for Recommendations Kcal/kg Additional Notes Protein: 0.8-1 g/kg @ 82k -82g 1 ml/kcal or per MD Nutrition Intervention Change Diet Order: continue Nutrition Support: n/a Add Supplement/Snack (indicate name/kcal n/a /protein ) Goal #1 PO intake continues at 75% or greater during LOS Follow-Up By: 03/09/21 Revisit per MD consult or patient Sign Off request:
[2021-02-13] MEDS: ALPRAZolam 0.5 MG TAB PO PRN (23:45)
[2021-02-14] MEDS: AQUAPHOR OINTMENT TP SCH (04:38)
--- NOTE | 2021-02-14 09:13 | Discharge Summary ---
Providers - Providers Date of Admission: 02/01/21 21:42 Date of discharge: 02/14/21 Attending physician: TU YOUNG 02/01/21 17:03 Consult to Mental Health [CONS] Stat Reason For Exam: SI, auditory hallucinations 02/01/21 23:26 Consult to Physician [CONS] Routine Comment: Consulting Provider: LORENZA DOVE Physician Instructions: Reason For Exam: sepsis, PUI, AIDS 02/02/21 03:05 Consult to Wound/ET Nurse [CONS] Routine Reason For Exam: wound eval, scattered excoriations throughout body 02/03/21 15:03 Consult to Case Management [CONS] Routine Services Needed at Discharge: Neurology Teacher Notified:: PETER Additional Physician Instructions: Community HIV resources including transportation to [facility] or [facility] 02/05/21 13:38 Physical Therapy Evaluation and Treat [CONS] Urgent Comment: Reason For Exam: DEBILITY 02/09/21 07:36 psychiatry consult [Consult to Mental Health] [CONS] Urgent Reason For Exam: Reconsult/suicidal thoughts and suicidal ideation Primary care physician: DIRECTOR [employer] Hospitalization Reason for admission: Suicidal ideation, fever, chronic wounds Condition: Stable Pertinent studies: Chest x-ray no acute abnormality noted Repeat chest x-ray 02/09/2021 no acute abnormality noted Hospital course: 45-year-old homeless male with history of AIDS, anxiety, and asthma who presented at [facility] ED with complaints of suicidal ideation. Patient states his has taken everything from him, and he is now homeless struggling to find food and [place] [facility]. Endorses feeling anxious, and depressed and wants to end his life. He states that he has voices in his head telling him to kill himself which started approximately a day ago. While in the ED patient was noted to have a fever and multiple excoriations throughout his body. Additionally he complains of generalized body pain. Endorses feeling itchy and as a result he continues to scratch his body, which has contributed to the multiple excoriations noted. 02/02: Patient remains clinically stable, awaiting COVID19 TESTING RESULT. Psych input noted, cleared as patient denies suicidal ideation. Wound management. Anticipate discharge in am if COVID19 is negative. Replace K. 02/03: Patient still with low grade fever, Negative COVID 19 TEST, per ID, - Antibiotics switched to ceftriaxone -P.O. Bactrim ordered for prophylaxis -LDH, Fungitell, serum cryptococcal antigen ordered. Continue supportive care. 02/04: Patient seen and examined today no acute distress still with skin excoriation dry skin etiology of skin lesions is unclear if this needs to be evaluated outpatient. Patient was seen by ID and was recommended and treated with ceftriaxone and vancomycin also p.o. Bactrim DS 1 tab daily for prophylaxis and azithromycin 1200 mg as prophylaxis. (since it is unclear when he will actually begin ART, added Azithromycin prophylaxis) If he remains afebrile, may discharge on PO Keflex 500 mg QID plus doxycycline 100 mg BID x 10 days Patient's leukopenia was felt to be secondary to uncontrolled HIV/AIDS chest x- ray was without pneumonia and is on room air doing well no other options infection is noted. Patient was cleared by psychiatry for suicidal ideation. He tolerated ceftriaxone here just the reason why Keflex has been added to his medication regimen. I did discuss with social workers for assistance in providing him resources on for placement and also transportation Patient will need to [facility] or [facility] guarded prognosis 02/05: Patient has been discharged awaiting placement. My anticipation is with the patient will go to personal intermediate out of the [place] [facility]. He continues to refuse treatment while in house here. 02/06: Awaiting safe discharge. Continue supportive care, counselling provided to comply with treatment 02/07: Patient seen and examined resting comfortably Case management working with him have ordered a wheelchair unfortunately the company bringing it was going to take it to his previous address in [place] that has been corrected and I will bring it here for him to go to a [place] [facility] and then follow-up with his doctors as 02/08/2021; patient is medically stable for discharge Multiple social issues, homeless, [place] [facility] [place] placement 02/09/2021; patient reported to the nurse that he has full suicidal thoughts and ideation Patient had similar symptoms at the time of admission, psych has evaluated and cleared for discharge We will place him 1013 again and reconsult psych, hold discharge at this point Follow psych recommendations Psych reevaluated the patient today and cleared for discharge, 1013 was rescinded Advised to follow primary care physician and private psych per schedule. Patient is hemodynamically and clinically stable at discharge. Case management assisted with discharge planning. Discharge diagnosis: --Suicidal thoughts and ideation; Patient denies suicidal thoughts or ideation today Patient was evaluated for suicidal ideation and later cleared for discharge Follow reevaluation by psych, and if cleared, will plan discharge And currently on 1013 status --Persistent fever; resolved, [place] PCR test is negative, chest x-ray on 02/01/2021 -negative for pneumonia Set of cultures are negative 02/01/2021, cryptococcal antigen negative 02/02/2021 We will check new chest x-ray to rule out pneumonia Send new set of urine and blood cultures negative to date Antibiotics per ID --Negative COVID-19 test --HIV AIDS; noncompliant with antiretrovirals, ID following I recommend compliance with medications follow-up visits Health department, [place] Case management to assist with home health/transportation --History of asthma; patient is saturating well on room air, Albuterol as needed --Multiple superficial wounds; wound care --Discharge planning; patient has multiple social issues Homeless, no resources, case management and social service manager trying to secure A place in the local shelters. Stable at discharge DC planning per case management Disposition: 01 HOME / SELF CARE / HOMELESS Final Discharge Diagnosis (Prints w/discharge instructions): Suicidal thoughts a nd ideation resolved. Persistent fever resolved. COVID-19 test negative. HIV AIDS. History of bronchial asthma. Multiple superficial wound. Medical noncompliance. Leukopenia. Chronic anemia. Mild Malnutrition Time spent for discharge: 35 min Core Measure Documentation - Palliative Care Palliative Care/ Comfort Measures: Not Applicable - Core Measures Any of the following diagnoses?: none Exam - Constitutional Vitals: Temp Pulse Resp BP Pulse Ox 98.4 F 108 H 16 192/124 98 02/14/21 04:26 02/14/21 04:26 02/14/21 04:26 02/14/21 04:26 02/14/21 04:26 General appearance: Present: no acute distress, well-nourished - EENT Eyes: Present: PERRL, EOM intact - Neck Neck: Present: supple, normal ROM - Respiratory Respiratory effort: normal Respiratory: bilateral: diminished, negative: rales, rhonchi, wheezing - Cardiovascular Rhythm: regular Heart Sounds: Present: S1 & S2 - Extremities Extremities: no ischemia, abnormal (Multiple chronic wounds) - Abdominal General gastrointestinal: Present: soft, non-tender, non-distended, normal bowel sounds - Integumentary Integumentary: Present: clear, warm, rash (Multiple chronic wounds) - Musculoskeletal Musculoskeletal: strength equal bilaterally, generalized weakness - Psychiatric Psychiatric: appropriate mood/affect, cooperative - Neurologic Neurologic: moves all extremities Plan Activity: no restrictions Diet: regular Additional Instructions: Case management to assist with resources, transportation to follow-up at [facility] clinic or [facility] daily IDP. Patient advised to comply with medications, follow-up visits. If you have any worsening symptoms contact MD or go to nearest emergency room as needed Follow up with: [facility] [Outside] - [address] [facility] [Outside] - 7 Days [facility] [Outside] - 7 Days [facility]IMARY [facility]ARE,MD [Primary Care Provider] - 3-5 Days Prescriptions: Sulfamethoxazole/Trimethoprim [Bactrim DS TAB] 1 each PO Q24HR #30 tablet Docusate Sodium [Colace CAP] 100 mg PO BID PRN #30 capsule PRN Reason: Constipation cephALEXin [Keflex] 500 mg PO Q6HR #40 capsule traMADoL [Ultram] 50 mg PO Q6HR PRN #14 tablet PRN Reason: Pain ALPRAZolam [Xanax TAB] 0.5 mg PO Q8H PRN #14 tablet PRN Reason: Anxiety Azithromycin [Zithromax TAB] 1,200 mg PO Th@1600 #8 tablet
[2021-02-14 09:55] VITALS: BP 140/80
--- NOTE | 2021-02-14 11:06 | Progress Note ---
Assessment and Plan SARS CoV2 PCR: negative 02/01/2021 blood culture: No growth 02/02/2021 serum cryptococcal antigen: Negative A/P: 45-year-old male with homelessness, HIV/AIDS, not on antiretroviral therapy, anxiety, asthma was admitted to the hospital with suicidal ideation: #Low-grade fever, leukopenia: Could be related to uncontrolled HIV/AIDS. Chest x-ray without any pneumonia, on room air. Evaluate for other occult opportunistic infections. #HIV/AIDS: not on ARVs. CD4 count of 3 in 01/2021. Patient states he was only recently diagnosed. He is not aware of any HIV related community resources. He has no home, no insurance, no money to pay for anything. #Suicidal ideation: Psychiatry cleared pt. #Multiple wounds, skin excoriations, suspected b/l LE cellulitis: Recommend wound care and empiric abx. Etiology of other skin lesions is unclear. Recs: continue wound care Continue PO Bactrim DS 1 tab daily as prophylaxis Continue weekly PO azithromycin 1200 mg as prophylaxis (since it is unclear when he will actually begin ART, added Azithromycin prophylaxis) Will need transition social worker assistance in providing resources as well as transportation. Patient will need to follow-up at [facility] clinic or [place] IDP guarded prognosis Fevers resolved. OK for DC from ID perspective. Given transportation issues will likely need to go to [facility] MD [facility] O: [phone] F: [phone] Subjective Date of service: 02/14/21 Interval history: Patient afebrile, whtie count remains low. No new issues. Objective - Exam Narrative Exam: Physical exam deferred to reduce risk of transmission of COVID-19. Please refer to primary team's note. - Constitutional Vitals: Vital Signs Temp Pulse Resp BP Pulse Ox 98.5 F 102 H 20 140/80 100 02/14/21 09:53 02/14/21 09:53 02/14/21 09:53 02/14/21 09:53 02/14/21 09:53 Temperature -Last 24 Hours Temperature 98.5 F Temperature 98.4 F Temperature 98.6 F Temperature 97.2 F Temperature 97.9 F - Labs CBC & Chem 7: 02/10/21 Unknown 02/10/21 Unknown
[2021-02-14] MEDS: DOXYCYCLINE 100 MG CAP PO SCH (11:09)
[2021-02-14] MEDS: levoFLOXacin 750 MG TAB PO SCH (11:09)
[2021-02-14] MEDS: SULFAMETHOXAZOLE/TRIMETHOPRIM 800/160MG DS TAB PO SCH (11:10)
[2021-02-14] MEDS: DOCUSATE SODIUM 100 MG CAP PO SCH (11:10)
[2021-02-14] MEDS: HEPARIN 5,000 UNIT/1 ML VIAL SUB-Q SCH (11:10)
[2021-02-14] MEDS: FAMOTIDINE 10 MG TAB PO SCH (11:17)
--- NOTE | 2021-02-14 11:28 | Progress Note ---
Subjective - Reason for Consult Consult date: 02/14/21 Reason for consult: SI - Chief Complaint Chief complaint: The patient was seen today. He is a/o x 3. He is calm and cooperative. A sitter is at bedside. The patient says he has just been laying there and nobody has told him anything. He denies SI/HI. He says he wish people would stop saying that he's suicidal. He says "If I wanted to hurt myself or I would have not come to the hospital. I would have just laid in the ditch." He says he feels "alright." The patient says "I just want to get my life back on track." He denies hallucinations. REVIEW OF SYSTEMS Constitutional: Negative for weight loss ENT: Negative for stridor Respiratory: Negative for cough or hemoptysis All other systems reviewed and are negative MENTAL STATUS EXAMINATION General Appearance and Behavior: Age appropriate, dressed appropriately, calm and cooperative Cooperation: engaging Psychomotor Behavior: psychomotor normal Mood: better Affect and affective range: Congruent with stated mood Thought Process: goal oriented Thought Content: None Speech: Normal volume, Regular rate and rhythm, Suicidal Ideation: Denies Homicidal Ideation: denies Hallucinations: Denies Delusions: None elicited Impulse Control: Unimpaired Insight and Judgment: limited insight and judgment, Memory: Normal Attention: attentive Orientation: Alert, oriented Assessment and Plan (1) Generalized Anxiety Disorder Treatment plan d/c 1013 Continue previous prescribed meds Risks, benefits and alternatives of medications discussed with the patient, questions answered and consent obtained from patient. PSYCHOTHERAPY: Supportive psychotherapy provided MEDICAL: Per primary team DELIRIUM PRECAUTIONS: Please re-orient patient frequently, keep lights on during the day, and minimize benzodiazepines and opiates as these medications could worsen patient's confusion. CASHIER AND WAITER/WAITRESS: Per medical team DISPOSITION: Do not Recommend acute inpatient psychiatric hospitalization. The patient may discharge once medically clear. The patient is to follow up with outpatient psych in 7 to 14 days upon discharge The solar sales assessor to give the patient all necessary outpatient resources. Please give the patient a transportation pass if needed. Will sign off. Thank you for the consult. Please contact with any questions and/or concerns. Case staffed with Dr. Norwood Mental Status Exam - Vital signs Last Vital Signs Temp 98.5 F 02/14/21 09:53 Pulse 102 H 02/14/21 09:53 Resp 20 02/14/21 09:53 BP 140/80 02/14/21 09:53 Pulse Ox 100 02/14/21 09:53
== END 2021-02-14 16:55 | disposition home or self-care (01) | DRG 975 ==
LOC: ED 09:45 → 3A 21:42
PROVIDERS: ADMIT Internal Medicine Geriatric Medicine; ATTEND Internal Medicine
DX: A41.9 Sepsis, unspecified organism (principal); R45.851 Suicidal ideations; B20 Human immunodeficiency virus [HIV] disease; Z20.822 Contact with and (suspected) exposure to COVID-19; F41.1 Generalized anxiety disorder; E87.6 Hypokalemia; Z88.0 Allergy status to penicillin; Z88.8 Allergy status to other drugs, medicaments and biological substances
CPT/HCPCS: 36415; 71045; 80048; 80053; 80307; 80320; 81001; 81015; 82140; 85007; 85025; 85027; 86403; 87040; 87086; 94640; G0378; G0480; J0692; J0696; J1644; J3370; J7030; J7040; J7050; Q0177; U0003

== ENCOUNTER 2021-02-15 15:57 | Emergency (ER) | payer SELFPAY ==
[2021-02-15] MEDS ORDERED: ASPIRIN 81 MG TAB CHEW PO ONE (17:00)
[2021-02-15 17:47] LABS: Hematocrit 25.1 % (35.5-45.6); Hemoglobin 8.4 gm/dl (11.8-15.2); Mean Corpuscular HGB Conc 34 % (32-34); Mean Corpuscular Volume 86 fl (84-94); Platelet Count 286 K/mm3 (140-440); Red Blood Count 2.94 M/mm3 (3.65-5.03); Red Cell Distribution Width 16.5 % (13.2-15.2)
--- NOTE | 2021-02-15 17:48 | XRay Report ---
. CHEST 1 VIEW INDICATION / CLINICAL INFORMATION: Chest Pain. COMPARISON: 02/09/2021 FINDINGS: SUPPORT DEVICES: None. HEART / MEDIASTINUM: No significant abnormality. LUNGS / PLEURA: No significant pulmonary or pleural abnormality. No pneumothorax. ADDITIONAL FINDINGS: No significant additional findings. IMPRESSION: 1. No acute findings. Signer Name: Todd Fernandes MD Signed: 02/15/2021 5:43 PM Workstation Name: [id number]
[2021-02-15 18:02] LABS: Alanine Aminotransferase 20 units/L (7-56); Albumin 3.3 g/dL (3.9-5); BUN/Creatinine Ratio 15; Blood Urea Nitrogen 24 mg/dL (9-20); Calcium 9.7 mg/dL (8.4-10.2); Hemolysis Index 4; INR 0.94 (0.87-1.13)
[2021-02-15 18:03] LABS: Partial Thromboplastin Time 35.1 Sec. (24.2-36.6)
[2021-02-15 19:09] LABS: Anisocytosis 1+; Poikilocytosis 1+; Total Cells Counted 50
[2021-02-15 19:10] LABS: Ovalocytes Few; Platelet Estimate Consistent w Auto; Schistocytes Rare; Tear Drop Cells Few
--- NOTE | 2021-02-15 20:41 | Emergency Department Report ---
ED General Adult HPI - General Chief complaint: Chest Pain Stated complaint: SUICIDAL Time Seen by Provider: 02/15/21 16:29 Source: patient Mode of arrival: Ambulatory Limitations: No Limitations - History of Present Illness Initial comments: Patient presents to the emergency department initially for suicidal ideation. Patient states he wants to jump off a bridge. Patient is nonambulatory and uses a wheelchair. Patient was recently seen within the last 48 hours in the emergency department for mental health evaluation as well. Patient states chest pain is located left-sided chest without radiation describes it as dull in nature. He denies headache or abdominal pain. -: Sudden Location: chest Radiation: non-radiation Severity scale (0 -10): 4 Quality: dull Consistency: constant Improves with: none Worsens with: none Associated Symptoms: denies other symptoms Treatments Prior to Arrival: none - Related Data Home Medications Medication Instructions Recorded Confirmed Last Taken Ibuprofen 400 mg PO Q6H PRN 02/03/21 02/03/21 Unknown Previous Rx's Medication Instructions Recorded Last Taken Type ALPRAZolam [Xanax TAB] 0.5 mg PO Q8H PRN #14 tablet 02/04/21 Unknown Rx Azithromycin [Zithromax TAB] 1,200 mg PO Th@1600 #8 tablet 02/04/21 Unknown Rx Docusate Sodium [Colace CAP] 100 mg PO BID PRN #30 capsule 02/04/21 Unknown Rx Sulfamethoxazole/Trimethoprim 1 each PO Q24HR #30 tablet 02/04/21 Unknown Rx [Bactrim DS TAB] cephALEXin [Keflex] 500 mg PO Q6HR #40 capsule 02/04/21 Unknown Rx traMADoL [Ultram] 50 mg PO Q6HR PRN #14 tablet 02/04/21 Unknown Rx Allergies Allergy/AdvReac Type Severity Reaction Status Date / Time Penicillins Allergy Angioedema Verified 01/14/21 12:05 cinnamon AdvReac Unknown Hives Verified 02/02/21 06:11 ED Review of Systems ROS: Stated complaint: SUICIDAL Other details as noted in HPI Comment: All other systems reviewed and negative Constitutional: denies: chills, fever Eyes: denies: eye pain, eye discharge, vision change ENT: denies: ear pain, throat pain Respiratory: denies: cough, shortness of breath, wheezing Cardiovascular: denies: chest pain, palpitations Endocrine: no symptoms reported Gastrointestinal: denies: abdominal pain, nausea, diarrhea Genitourinary: denies: urgency, dysuria Musculoskeletal: denies: back pain, joint swelling, arthralgia Skin: denies: rash, lesions Neurological: denies: headache, weakness, paresthesias Psychiatric: suicidal thoughts. denies: anxiety, depression Hematological/Lymphatic: denies: easy bleeding, easy bruising ED Past Medical Hx - Past Medical History Previous Medical History?: Yes Hx Psychiatric Treatment: Yes (anxiety) Hx Asthma: Yes Hx HIV: Yes Additional medical history: HIV/AIDS - Surgical History Past Surgical History?: Yes Hx Appendectomy: Yes - Social History Smoking Status: Never Smoker Substance Use Type: None - Medications Home Medications: Home Medications Medication Instructions Recorded Confirmed Last Taken Type Ibuprofen 400 mg PO Q6H PRN 02/03/21 02/03/21 Unknown History ALPRAZolam [Xanax TAB] 0.5 mg PO Q8H PRN #14 tablet 02/04/21 Unknown Rx Azithromycin [Zithromax TAB] 1,200 mg PO Th@1600 #8 tablet 02/04/21 Unknown Rx Docusate Sodium [Colace CAP] 100 mg PO BID PRN #30 capsule 02/04/21 Unknown Rx Sulfamethoxazole/Trimethoprim 1 each PO Q24HR #30 tablet 02/04/21 Unknown Rx [Bactrim DS TAB] cephALEXin [Keflex] 500 mg PO Q6HR #40 capsule 02/04/21 Unknown Rx traMADoL [Ultram] 50 mg PO Q6HR PRN #14 tablet 02/04/21 Unknown Rx ED Physical Exam - General Limitations: No Limitations General appearance: alert, in no apparent distress - Head Head exam: Present: atraumatic, normocephalic - Eye Eye exam: Present: normal appearance, PERRL - ENT ENT exam: Present: mucous membranes moist - Neck Neck exam: Present: normal inspection - Respiratory Respiratory exam: Present: normal lung sounds bilaterally. Absent: respiratory distress - Cardiovascular Cardiovascular Exam: Present: regular rate, normal rhythm. Absent: systolic murmur, diastolic murmur, rubs, gallop - GI/Abdominal GI/Abdominal exam: Present: soft, normal bowel sounds. Absent: distended, tenderness - Rectal Rectal exam: Present: deferred - Extremities Exam Extremities exam: Present: normal inspection - Back Exam Back exam: Present: normal inspection - Neurological Exam Neurological exam: Present: alert, oriented X3, CN II-XII intact. Absent: motor sensory deficit - Psychiatric Psychiatric exam: Present: normal affect, normal mood, suicidal ideation - Skin Skin exam: Present: warm, dry, intact, normal color. Absent: rash ED Course Vital Signs 02/15/21 02/15/21 16:05 17:18 Temperature 98.6 F Pulse Rate 117 H Respiratory 16 Rate Blood Pressure 116/71 [Left] O2 Sat by Pulse 96 96 Oximetry ED Medical Decision Making - Lab Data Result diagrams: 02/15/21 17:09 02/15/21 17:09 Lab Results 02/15/21 02/15/21 02/15/21 Range/Units 17:09 17:09 17:09 WBC 1.6 L* (4.5-11.0) K/mm3 RBC 2.94 L (3.65-5.03) M/mm3 Hgb 8.4 L (11.8-15.2) gm/dl Hct 25.1 L (35.5-45.6) % MCV 86 (84-94) fl MCH 29 (28-32) pg MCHC 34 (32-34) % RDW 16.5 H (13.2-15.2) % Plt Count 286 (140-440) K/mm3 Wheeler % (Auto) V[employer]ator Add Manual Diff Complete Total Counted 50 Seg Neuts % (Manual) 66.0 (40.0-70.0) % Lymphocytes % (Manual) 20.0 (13.4-35.0) % Monocytes % (Manual) 10.0 H (0.0-7.3) % Eosinophils % (Manual) 4.0 (0.0-4.3) % Nucleated RBC % Not Reportable Seg Neutrophils # Man 1.1 L (1.8-7.7) K/mm3 Band Neutrophils # 0.0 K/mm3 Lymphocytes # (Manual) 0.3 L (1.2-5.4) K/mm3 Abs React Lymphs (Man) 0.0 K/mm3 Monocytes # (Manual) 0.2 (0.0-0.8) K/mm3 Eosinophils # (Manual) 0.1 (0.0-0.4) K/mm3 Basophils # (Manual) 0.0 (0.0-0.1) K/mm3 Metamyelocytes # 0.0 K/mm3 Myelocytes # 0.0 K/mm3 Promyelocytes # 0.0 K/mm3 Blast Cells # 0.0 K/mm3 WBC Morphology Not Reportable Hypersegmented Neuts Not Reportable Hyposegmented Neuts Not Reportable Hypogranular Neuts Not Reportable Smudge Cells Not Reportable Toxic Granulation Not Reportable Toxic Vacuolation Not Reportable Dohle Bodies Not Reportable Pelger-Huet Anomaly Not Reportable Steffi Rods Not Reportable Platelet Estimate Consistent w auto Clumped Platelets Not Reportable Plt Clumps, EDTA Not Reportable Large Platelets Not Reportable Giant Platelets Not Reportable Platelet Satelliting Not Reportable Plt Morphology Comment Not Reportable RBC Morphology Not Reportable Dimorphic RBCs Not Reportable Polychromasia Not Reportable Hypochromasia Not Reportable Poikilocytosis 1+ Anisocytosis 1+ Microcytosis Not Reportable Macrocytosis Not Reportable Spherocytes Not Reportable Pappenheimer Bodies Not Reportable Sickle Cells Not Reportable Target Cells Not Reportable Tear Drop Cells Few Ovalocytes Few Helmet Cells Not Reportable Hackett-Dequincy Bodies Not Reportable [place] Rings Not Reportable Salix Cells Not Reportable Bite Cells Not Reportable Crenated Cell Not Reportable Elliptocytes Few Acanthocytes (Spur) Not Reportable Rouleaux Not Reportable Hemoglobin C Crystals Not Reportable Schistocytes Rare Malaria parasites Not Reportable Josue Bodies Not Reportable Hem Pathologist Commnt No PT 13.6 (12.2-14.9) Sec. INR 0.94 (0.87-1.13) APTT 35.1 (24.2-36.6) Sec. Sodium 139 (137-145) mmol/L Potassium 4.1 (3.6-5.0) mmol/L Chloride 105.6 (98-107) mmol/L Carbon Dioxide 19 L (22-30) mmol/L Anion Gap 19 mmol/L BUN 24 H (9-20) mg/dL Creatinine 1.6 H (0.8-1.3) mg/dL Estimated GFR 57 ml/min BUN/Creatinine Ratio 15 % Glucose 114 H (75-100) mg/dL Calcium 9.7 (8.4-10.2) mg/dL Total Bilirubin < 0.20 (0.1-1.2) mg/dL AST 21 (5-40) units/L ALT 20 (7-56) units/L Alkaline Phosphatase 70 (35-129) units/L Troponin T < 0.010 (0.00-0.029) ng/mL Total Protein 7.9 (6.3-8.2) g/dL Albumin 3.3 L (3.9-5) g/dL Albumin/Globulin Ratio 0.7 % Salicylates (2.8-20.0) mg/dL Acetaminophen (10.0-30.0) ug/mL Plasma/Serum Alcohol (0-0.07) % 02/15/21 02/15/21 02/15/21 Range/Units 17:09 17:09 17:09 WBC (4.5-11.0) K/mm3 RBC (3.65-5.03) M/mm3 Hgb (11.8-15.2) gm/dl Hct (35.5-45.6) % MCV (84-94) fl MCH (28-32) pg MCHC (32-34) % RDW (13.2-15.2) % Plt Count (140-440) K/mm3 Wheeler % (Auto) Add Manual Diff Total Counted Seg Neuts % (Manual) (40.0-70.0) % Lymphocytes % (Manual) (13.4-35.0) % Monocytes % (Manual) (0.0-7.3) % Eosinophils % (Manual) (0.0-4.3) % Nucleated RBC % Seg Neutrophils # Man (1.8-7.7) K/mm3 Band Neutrophils # K/mm3 Lymphocytes # (Manual) (1.2-5.4) K/mm3 Abs React Lymphs (Man) K/mm3 Monocytes # (Manual) (0.0-0.8) K/mm3 Eosinophils # (Manual) (0.0-0.4) K/mm3 Basophils # (Manual) (0.0-0.1) K/mm3 Metamyelocytes # K/mm3 Myelocytes # K/mm3 Promyelocytes # K/mm3 Blast Cells # K/mm3 WBC Morphology Hypersegmented Neuts Hyposegmented Neuts Hypogranular Neuts Smudge Cells Toxic Granulation Toxic Vacuolation Dohle Bodies Pelger-Huet Anomaly Steffi Rods Platelet Estimate Clumped Platelets Plt Clumps, EDTA Large Platelets Giant Platelets Platelet Satelliting Plt Morphology Comment RBC Morphology Dimorphic RBCs Polychromasia Hypochromasia Poikilocytosis Anisocytosis Microcytosis Macrocytosis Spherocytes Pappenheimer Bodies Sickle Cells Target Cells Tear Drop Cells Ovalocytes Helmet Cells Hackett-Dequincy Bodies Cort[place] Rings Praveena Cells Bite Cells Crenated Cell Elliptocytes Acanthocytes (Spur) Rouleaux Hemoglobin C Crystals Schistocytes Malaria parasites Josue Bodies Hem Pathologist Commnt PT (12.2-14.9) Sec. INR (0.87-1.13) APTT (24.2-36.6) Sec. Sodium (137-145) mmol/L Potassium (3.6-5.0) mmol/L Chloride (98-107) mmol/L Carbon Dioxide (22-30) mmol/L Anion Gap mmol/L BUN (9-20) mg/dL Creatinine (0.8-1.3) mg/dL Estimated GFR ml/min BUN/Creatinine Ratio % Glucose (75-100) mg/dL Calcium (8.4-10.2) mg/dL Total Bilirubin (0.1-1.2) mg/dL AST (5-40) units/L ALT (7-56) units/L Alkaline Phosphatase (35-129) units/L Troponin T (0.00-0.029) ng/mL Total Protein (6.3-8.2) g/dL Albumin (3.9-5) g/dL Albumin/Globulin Ratio % Salicylates < 0.3 L (2.8-20.0) mg/dL Acetaminophen 5.0 L (10.0-30.0) ug/mL Plasma/Serum Alcohol < 0.01 (0-0.07) % 02/15/21 Range/Units 19:31 WBC (4.5-11.0) K/mm3 RBC (3.65-5.03) M/mm3 Hgb (11.8-15.2) gm/dl Hct (35.5-45.6) % MCV (84-94) fl MCH (28-32) pg MCHC (32-34) % RDW (13.2-15.2) % Plt Count (140-440) K/mm3 Wheeler % (Auto) Add Manual Diff Total Counted Seg Neuts % (Manual) (40.0-70.0) % Lymphocytes % (Manual) (13.4-35.0) % Monocytes % (Manual) (0.0-7.3) % Eosinophils % (Manual) (0.0-4.3) % Nucleated RBC % Seg Neutrophils # Man (1.8-7.7) K/mm3 Band Neutrophils # K/mm3 Lymphocytes # (Manual) (1.2-5.4) K/mm3 Abs React Lymphs (Man) K/mm3 Monocytes # (Manual) (0.0-0.8) K/mm3 Eosinophils # (Manual) (0.0-0.4) K/mm3 Basophils # (Manual) (0.0-0.1) K/mm3 Metamyelocytes # K/mm3 Myelocytes # K/mm3 Promyelocytes # K/mm3 Blast Cells # K/mm3 WBC Morphology Hypersegmented Neuts Hyposegmented Neuts Hypogranular Neuts Smudge Cells Toxic Granulation Toxic Vacuolation Dohle Bodies Pelger-Huet Anomaly Steffi Rods Platelet Estimate Clumped Platelets Plt Clumps, EDTA Large Platelets Giant Platelets Platelet Satelliting Plt Morphology Comment RBC Morphology Dimorphic RBCs Polychromasia Hypochromasia Poikilocytosis Anisocytosis Microcytosis Macrocytosis Spherocytes Pappenheimer Bodies Sickle Cells Target Cells Tear Drop Cells Ovalocytes Helmet Cells Hackett-Dequincy Bodies Cort[place] Rings Salix Cells Bite Cells Crenated Cell Elliptocytes Acanthocytes (Spur) Rouleaux Hemoglobin C Crystals Schistocytes Malaria parasites Josue Bodies Hem Pathologist Commnt PT (12.2-14.9) Sec. INR (0.87-1.13) APTT (24.2-36.6) Sec. Sodium (137-145) mmol/L Potassium (3.6-5.0) mmol/L Chloride (98-107) mmol/L Carbon Dioxide (22-30) mmol/L Anion Gap mmol/L BUN (9-20) mg/dL Creatinine (0.8-1.3) mg/dL Estimated GFR ml/min BUN/Creatinine Ratio % Glucose (75-100) mg/dL Calcium (8.4-10.2) mg/dL Total Bilirubin (0.1-1.2) mg/dL AST (5-40) units/L ALT (7-56) units/L Alkaline Phosphatase (35-129) units/L Troponin T < 0.010 (0.00-0.029) ng/mL Total Protein (6.3-8.2) g/dL Albumin (3.9-5) g/dL Albumin/Globulin Ratio % Salicylates (2.8-20.0) mg/dL Acetaminophen (10.0-30.0) ug/mL Plasma/Serum Alcohol (0-0.07) % - EKG Data -: EKG Interpreted by Me EKG shows normal: sinus rhythm Rate: tachycardia - Radiology Data Radiology results: report reviewed - Medical Decision Making Patient's heart rate is 89 bpm on my exam Patient is medically clear patient is not neutropenic and is white blood cell count in the past has been 2,000 amd 2,200. The patient's white count is likely secondary to his chronic disease of HIV Patient is medically cleared Awaiting mental health evaluation Critical care attestation.: If time is entered above; I have spent that time in minutes in the direct care of this critically ill patient, excluding procedure time. ED Disposition Clinical Impression: Suicidal ideation, Nonspecific chest pain Disposition: [address] [place] [address] Is pt being admited?: No Does the pt Need Aspirin: No Condition: Stable Instructions: Nonspecific Chest Pain, Adult Referrals: [facility] [Outside] - 3-5 Days PRIMARY CAREMD [Primary Care Provider] - 3-5 Days ROHAN ARCOS MD [Staff Physician] - 3-5 Days
[2021-02-15 20:50] LABS: Bilirubin,Urine NEG (Negative); Blood,Urine NEG (Negative); Color,Urine Yellow (Yellow); Mucus,Urine FEW /HPF; Urobilinogen,Urine < 2.0 mg/dL (<2.0)
[2021-02-15 20:58] LABS: Amphetamine Screen,Urine Negative; Cannabinoid Screen,Urine Negative; Cocaine Screen,Urine Negative; Methadone Screen,Urine Negative; Opiate Screen,Urine Negative
[2021-02-15 21:23] LABS: Benzodiazepines Screen,Urine Positive
[2021-02-16 08:36] VITALS: BP 115/70
--- NOTE | 2021-02-16 09:37 | Consultation ---
History of Present Illness - Reason for Consult Consult date: 02/16/21 Reason for consult: SI - History of Present Psychiatric Illness Juan F Palma is a 45y/o patient whom was just discharged from the hospital. I also rounded on the patient and cleared him from psych. During my evaluation of the patient today, he says he was taken to the homeless long-term but they would not let him in. He says he's unsure if it was due to the fact that he has a wheelchair. The patient says "so I didn't have a choice but to come back here." He says "I came here because they brought me here. I was living in an abandoned apartment and I feel." I then asked him how did he end up in the psych department for a fall. He says "they started asking me about my mental, so I told them I thought about suicide." I asked the patient was he currently suicidal, he says "I thought about it." He says "I couldn't start the medication because I have nowhere to go or no way to get around." He denies hallucinations of any kind. PAST PSYCHIATRIC HISTORY Diagnoses: anxiety Suicide attempts or Self-harm behavior: Denies Prior psychiatric hospitalizations: Denies Substance Abuse history: denies Previous psychiatric medications tried: Denied Outpatient treatment: Denied SOCIAL HISTORY Marital Status: Living Arrangements: homeless Employment Status: Unemployed Access to guns/weapons: Denied Education: History of Abuse: Denied Legal History: None reported REVIEW OF SYSTEMS Constitutional: Negative for weight loss ENT: Negative for stridor Respiratory: Negative for cough or hemoptysis All other systems reviewed and are negative MENTAL STATUS EXAMINATION General Appearance and Behavior: Age appropriate, dressed appropriately, calm and cooperative Cooperation: engaging Psychomotor Behavior: psychomotor normal Mood: Anxious Affect and affective range: Congruent with stated mood Thought Process: goal oriented Thought Content: None Speech: Normal volume, Regular rate and rhythm, Suicidal Ideation: Denies Homicidal Ideation: denies Hallucinations: Denies Delusions: None elicited Impulse Control: Unimpaired Insight and Judgment: limited insight and judgment, Memory: Normal Attention: attentive Orientation: Alert, oriented Assessment (1) Mental Health Examination Treatment plan Continue previously prescribed medications Consult case management Risks, benefits and alternatives of medications discussed with the patient, questions answered and consent obtained from patient. PSYCHOTHERAPY: Supportive psychotherapy provided MEDICAL: Per primary team DELIRIUM PRECAUTIONS: Please re-orient patient frequently, keep lights on during the day, and minimize benzodiazepines and opiates as these medications could worsen patient's confusion. DIGITAL MEDIA MANAGER: Per medical team DISPOSITION: Do not recommend acute psychiatric inpatient treatment Will sign off. Thank you for the consult. Please contact with any questions and/or concerns. Case staffed with Dr. Norwood Medications and Allergies Allergies Allergy/AdvReac Type Severity Reaction Status Date / Time Penicillins Allergy Angioedema Verified 01/14/21 12:05 cinnamon AdvReac Unknown Hives Verified 02/02/21 06:11 Home Medications Medication Instructions Recorded Confirmed Last Taken Type Ibuprofen 400 mg PO Q6H PRN 02/03/21 02/03/21 Unknown History ALPRAZolam [Xanax TAB] 0.5 mg PO Q8H PRN #14 tablet 02/04/21 Unknown Rx Azithromycin [Zithromax TAB] 1,200 mg PO Th@1600 #8 tablet 02/04/21 Unknown Rx Docusate Sodium [Colace CAP] 100 mg PO BID PRN #30 capsule 02/04/21 Unknown Rx Sulfamethoxazole/Trimethoprim 1 each PO Q24HR #30 tablet 02/04/21 Unknown Rx [Bactrim DS TAB] cephALEXin [Keflex] 500 mg PO Q6HR #40 capsule 02/04/21 Unknown Rx traMADoL [Ultram] 50 mg PO Q6HR PRN #14 tablet 02/04/21 Unknown Rx Mental Status Exam - Vital signs Last Vital Signs Temp 98.6 F 02/16/21 08:35 Pulse 81 02/16/21 08:35 Resp 18 02/16/21 08:35 BP 115/70 02/16/21 08:35 Pulse Ox 96 02/16/21 08:35 Results Result Diagrams: 02/15/21 17:09 02/15/21 17:09 Abnormal lab results 02/15/21 02/15/21 02/15/21 Range/Units 17:09 17:09 17:09 WBC 1.6 L* (4.5-11.0) K/mm3 RBC 2.94 L (3.65-5.03) M/mm3 Hgb 8.4 L (11.8-15.2) gm/dl Hct 25.1 L (35.5-45.6) % RDW 16.5 H (13.2-15.2) % Monocytes % (Manual) 10.0 H (0.0-7.3) % Seg Neutrophils # Man 1.1 L (1.8-7.7) K/mm3 Lymphocytes # (Manual) 0.3 L (1.2-5.4) K/mm3 Carbon Dioxide 19 L (22-30) mmol/L BUN 24 H (9-20) mg/dL Creatinine 1.6 H (0.8-1.3) mg/dL Glucose 114 H (75-100) mg/dL Albumin 3.3 L (3.9-5) g/dL Salicylates < 0.3 L (2.8-20.0) mg/dL Acetaminophen (10.0-30.0) ug/mL 02/15/21 Range/Units 17:09 WBC (4.5-11.0) K/mm3 RBC (3.65-5.03) M/mm3 Hgb (11.8-15.2) gm/dl Hct (35.5-45.6) % RDW (13.2-15.2) % Monocytes % (Manual) (0.0-7.3) % Seg Neutrophils # Man (1.8-7.7) K/mm3 Lymphocytes # (Manual) (1.2-5.4) K/mm3 Carbon Dioxide (22-30) mmol/L BUN (9-20) mg/dL Creatinine (0.8-1.3) mg/dL Glucose (75-100) mg/dL Albumin (3.9-5) g/dL Salicylates (2.8-20.0) mg/dL Acetaminophen 5.0 L (10.0-30.0) ug/mL All other labs normal.
--- NOTE | 2021-02-16 10:50 | Emergency Department Report ---
Blank Doc - Documentation Documentation: 45-year-old male with AIDS, homelessness, and recurrent hospital visits for [facility] of complaints including suicidal ideation once again is here for mental health evaluation. Nurses notes reviewed. No events overnight. Vital signs unremarkable. Patient medically cleared by previous provider Mental health recommendation for discharge continue previous medications Patient will be discharged with instructions to continue previously prescribed medications and follow-up with previous resources including HIV clinics provided
--- NOTE | 2021-02-23 10:19 | Electrocardiograph Report ---
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
== END 2021-02-16 11:55 ==
LOC: ED 15:57
DX: R45.851 Suicidal ideations (principal); R07.89 Other chest pain; Z20.822 Contact with and (suspected) exposure to COVID-19; F41.9 Anxiety disorder, unspecified; Z91.018 Allergy to other foods; J45.909 Unspecified asthma, uncomplicated; Z90.49 Acquired absence of other specified parts of digestive tract; Z88.0 Allergy status to penicillin; Z79.899 Other long term (current) drug therapy
CPT/HCPCS: 36415; 71045; 80053; 80307; 81001; 84484; 85007; 85025; 85610; 85730; 93005; 99284; U0003; 80320; G0480

== ENCOUNTER 2021-02-16 13:48 | Emergency (ER) | payer SELFPAY ==
[2021-02-16 14:06] VITALS: BP 121/87
--- NOTE | 2021-02-16 14:30 | Event Note ---
ED Screening Note Date of service: 02/16/21 Time: 14:29 ED Screening Note: 45-year-old -[place] male presents to the emergency room with recent discharge comes in stating he had fallen out of his wheelchair and now has back pain in the lower area and right knee pain. Patient did not hit his head and did not lose consciousness. This initial assessment/diagnostic orders/clinical plan/treatment(s) is/are subject to change based on patients health status, clinical progression and re- assessment by fellow clinical providers in the ED. Further treatment and workup at subsequent clinical providers discretion. Patient/guardian urged not to elope from the ED as their condition may be serious if not clinically assessed and managed. Initial orders include: X-ray lumbar sacral and right knee. Inform MD Dr. Meza
--- NOTE | 2021-02-16 15:26 | XRay Report ---
RIGHT KNEE 2 VIEW(S) INDICATION / CLINICAL INFORMATION: fall r knee pain COMPARISON: None available. FINDINGS: BONES / JOINT(S): No acute fracture or subluxation. No significant arthritis. Right knee is maintaine d in slight flexion on both views. No significant joint effusion. SOFT TISSUES: No significant abnormality. ADDITIONAL FINDINGS: None. Signer Name: Sybil Davidson MD Signed: 02/16/2021 3:22 PM Workstation Name: [id number]
--- NOTE | 2021-02-16 15:30 | XRay Report ---
LUMBAR SPINE 3 VIEWS INDICATION / CLINICAL INFORMATION: fall lbp. COMPARISON: 01/31/21 FINDINGS: VERTEBRAE: No acute fracture. No significant malalignment. DISC SPACES / FACET JOINTS:No significant abnormality. PARASPINAL SOFT TISSUES:No significant abnormality. ADDITIONAL FINDINGS: None. Signer Name: Sybil Davidson MD Signed: 02/16/2021 3:25 PM Workstation Name: [id number]
--- NOTE | 2021-02-16 16:55 | Emergency Department Report ---
ED General Adult HPI - General Chief complaint: Back Pain/Injury Stated complaint: CANT CONTROL BOWELS, BACK PAIN Time Seen by Provider: 02/16/21 14:50 Source: patient Mode of arrival: Wheelchair Limitations: No Limitations - History of Present Illness Initial comments: Patient presents to the emergency department after being discharged for a fall. Patient states he fell off his wheelchair. Patient denies hitting his head or loss consciousness. Patient states he landed on his knees and then on his back. Patient has no other complaints -: Sudden Location: back Radiation: non-radiation Severity scale (0 -10): 2 Quality: dull Consistency: constant Improves with: none Worsens with: none Associated Symptoms: denies other symptoms Treatments Prior to Arrival: none - Related Data Home Medications Medication Instructions Recorded Confirmed Last Taken Ibuprofen 400 mg PO Q6H PRN 02/03/21 02/16/21 Unknown Previous Rx's Medication Instructions Recorded Last Taken Type ALPRAZolam [Xanax TAB] 0.5 mg PO Q8H PRN #14 tablet 02/04/21 Unknown Rx Azithromycin [Zithromax TAB] 1,200 mg PO Th@1600 #8 tablet 02/04/21 Unknown Rx Docusate Sodium [Colace CAP] 100 mg PO BID PRN #30 capsule 02/04/21 Unknown Rx Sulfamethoxazole/Trimethoprim 1 each PO Q24HR #30 tablet 02/04/21 Unknown Rx [Bactrim DS TAB] cephALEXin [Keflex] 500 mg PO Q6HR #40 capsule 02/04/21 Unknown Rx traMADoL [Ultram] 50 mg PO Q6HR PRN #14 tablet 02/04/21 Unknown Rx Allergies Allergy/AdvReac Type Severity Reaction Status Date / Time Penicillins Allergy Angioedema Verified 02/16/21 14:03 cinnamon AdvReac Unknown Hives Verified 02/16/21 14:03 ED Review of Systems ROS: Stated complaint: CANT CONTROL BOWELS, BACK PAIN Other details as noted in HPI Constitutional: denies: chills, fever Eyes: denies: eye pain, eye discharge, vision change ENT: denies: ear pain, throat pain Respiratory: denies: cough, shortness of breath, wheezing Cardiovascular: denies: chest pain, palpitations Endocrine: no symptoms reported Gastrointestinal: denies: abdominal pain, nausea, diarrhea Genitourinary: denies: urgency, dysuria Musculoskeletal: denies: back pain, joint swelling, arthralgia Skin: denies: rash, lesions Neurological: denies: headache, weakness, paresthesias Psychiatric: denies: anxiety, depression Hematological/Lymphatic: denies: easy bleeding, easy bruising ED Past Medical Hx - Past Medical History Hx Psychiatric Treatment: Yes (anxiety) Hx Asthma: Yes Hx HIV: Yes Additional medical history: HIV/AIDS - Surgical History Hx Appendectomy: Yes - Social History Smoking Status: Never Smoker Substance Use Type: None - Medications Home Medications: Home Medications Medication Instructions Recorded Confirmed Last Taken Type Ibuprofen 400 mg PO Q6H PRN 02/03/21 02/16/21 Unknown History ALPRAZolam [Xanax TAB] 0.5 mg PO Q8H PRN #14 tablet 02/04/21 02/16/21 Unknown Rx Azithromycin [Zithromax TAB] 1,200 mg PO Th@1600 #8 tablet 02/04/21 02/16/21 Unknown Rx Docusate Sodium [Colace CAP] 100 mg PO BID PRN #30 capsule 02/04/21 02/16/21 Unknown Rx Sulfamethoxazole/Trimethoprim 1 each PO Q24HR #30 tablet 02/04/21 02/16/21 Unknown Rx [Bactrim DS TAB] cephALEXin [Keflex] 500 mg PO Q6HR #40 capsule 02/04/21 02/16/21 Unknown Rx traMADoL [Ultram] 50 mg PO Q6HR PRN #14 tablet 02/04/21 02/16/21 Unknown Rx ED Physical Exam - General Limitations: No Limitations General appearance: alert, in no apparent distress - Head Head exam: Present: atraumatic, normocephalic - Eye Eye exam: Present: normal appearance - ENT ENT exam: Present: mucous membranes moist - Neck Neck exam: Present: normal inspection - Respiratory Respiratory exam: Present: normal lung sounds bilaterally. Absent: respiratory distress - Cardiovascular Cardiovascular Exam: Present: regular rate, normal rhythm. Absent: systolic murmur, diastolic murmur, rubs, gallop - Rectal Rectal exam: Present: deferred - Extremities Exam Extremities exam: Present: normal inspection - Back Exam Back exam: Present: normal inspection - Neurological Exam Neurological exam: Present: alert, oriented X3 - Psychiatric Psychiatric exam: Present: normal affect, normal mood - Skin Skin exam: Present: warm, dry, intact, normal color, other (Patient has chronic skin changes to his upper extremity and face secondary to his chronic illness) ED Course Vital Signs 02/16/21 14:05 Temperature 98.3 F Pulse Rate 100 H Respiratory 16 Rate Blood Pressure 121/87 [Left] O2 Sat by Pulse 100 Oximetry ED Medical Decision Making - Radiology Data Radiology results: report reviewed - Medical Decision Making Case management contacted and will see patient to get resources for homeless shelters Critical care attestation.: If time is entered above; I have spent that time in minutes in the direct care of this critically ill patient, excluding procedure time. ED Disposition Clinical Impression: Fall Disposition: 01 HOME / SELF CARE / HOMELESS Is pt being admited?: No Does the pt Need Aspirin: No Condition: Stable Instructions: Fall Prevention in the Home, Adult, [id number] Additional Instructions: Return if worse Referrals: ROHAN ARCOS MD [Staff Physician] - 3-5 Days Time of Disposition: 16:54
== END 2021-02-16 19:01 | disposition home or self-care (01) ==
LOC: ED 13:48
DX: M25.561 Pain in right knee (principal); R42 Dizziness and giddiness; M54.9 Dorsalgia, unspecified; W18.39XA Other fall on same level, initial encounter; Y93.89 Activity, other specified; Y92.89 Other specified places as the place of occurrence of the external cause; Y99.8 Other external cause status
CPT/HCPCS: 72100; 99283

== ENCOUNTER 2021-03-15 18:03 | Emergency (ER) | payer SELFPAY ==
[2021-03-15 18:13] VITALS: BP 112/72
--- NOTE | 2021-03-15 21:45 | Emergency Department Report ---
ED General Adult HPI - General Chief complaint: Medical Clearance Stated complaint: CHRONIC LEG PAIN Time Seen by Provider: 03/15/21 21:24 Source: patient Mode of arrival: Wheelchair Limitations: No Limitations - History of Present Illness Initial comments: 45-year-old -[place] male with a known past medical history of HIV/AIDS/neutropenia/presents emerged department complaining of a 1-1/2-month history of continued lower extremity weakness and back pain which has been progressively worsening since the onset. Has been seen at [facility] and admitted x1 and evaluated emergency department 3-4 times since the onset of this condition. He was discharged home with medications that he has not yet filled on multiple occasions and has follow-up with neurology for more definitive evaluation and treatment of this issue but has not yet been to the appointment which is at [facility] on March 17 at 11 AM. He has been diagnosed with back pain with rapidly progressing neurological symptoms and states that he initially was walking in the emergency department now due to the weakness to his O2 wheelchair from time to time to ambulate. He reports no traumatic injuries no new new injuries or changes since he was last evaluated at [place]. Currently in no fever. No loss of bowel bladder, notes no saddle paresthesia -: Gradual Radiation: non-radiation, back Quality: dull Consistency: constant Improves with: none Worsens with: none Associated Symptoms: denies other symptoms - Related Data Home Medications Medication Instructions Recorded Confirmed Last Taken Ibuprofen 400 mg PO Q6H PRN 02/03/21 02/16/21 Unknown Previous Rx's Medication Instructions Recorded Last Taken Type ALPRAZolam [Xanax TAB] 0.5 mg PO Q8H PRN #14 tablet 02/04/21 Unknown Rx Azithromycin [Zithromax TAB] 1,200 mg PO Th@1600 #8 tablet 02/04/21 Unknown Rx Docusate Sodium [Colace CAP] 100 mg PO BID PRN #30 capsule 02/04/21 Unknown Rx Sulfamethoxazole/Trimethoprim 1 each PO Q24HR #30 tablet 02/04/21 Unknown Rx [Bactrim DS TAB] cephALEXin [Keflex] 500 mg PO Q6HR #40 capsule 02/04/21 Unknown Rx traMADoL [Ultram] 50 mg PO Q6HR PRN #14 tablet 02/04/21 Unknown Rx Allergies Allergy/AdvReac Type Severity Reaction Status Date / Time Penicillins Allergy Angioedema Verified 02/16/21 14:03 cinnamon AdvReac Unknown Hives Verified 02/16/21 14:03 ED Review of Systems ROS: Stated complaint: CHRONIC LEG PAIN Other details as noted in HPI Comment: All other systems reviewed and negative ED Past Medical Hx - Past Medical History Previous Medical History?: Yes Hx Psychiatric Treatment: Yes (anxiety) Hx Asthma: Yes Hx HIV: Yes Additional medical history: HIV/AIDS - Surgical History Past Surgical History?: Yes Hx Appendectomy: Yes - Social History Smoking Status: Never Smoker Substance Use Type: None - Medications Home Medications: Home Medications Medication Instructions Recorded Confirmed Last Taken Type Ibuprofen 400 mg PO Q6H PRN 02/03/21 02/16/21 Unknown History ALPRAZolam [Xanax TAB] 0.5 mg PO Q8H PRN #14 tablet 02/04/21 02/16/21 Unknown Rx Azithromycin [Zithromax TAB] 1,200 mg PO Th@1600 #8 tablet 02/04/21 02/16/21 Unknown Rx Docusate Sodium [Colace CAP] 100 mg PO BID PRN #30 capsule 02/04/21 02/16/21 Unknown Rx Sulfamethoxazole/Trimethoprim 1 each PO Q24HR #30 tablet 02/04/21 02/16/21 Unknown Rx [Bactrim DS TAB] cephALEXin [Keflex] 500 mg PO Q6HR #40 capsule 02/04/21 02/16/21 Unknown Rx traMADoL [Ultram] 50 mg PO Q6HR PRN #14 tablet 02/04/21 02/16/21 Unknown Rx ED Physical Exam - General Limitations: No Limitations General appearance: alert, in no apparent distress - Head Head exam: Present: atraumatic, normocephalic - Eye Eye exam: Present: normal appearance - ENT ENT exam: Present: mucous membranes moist - Neck Neck exam: Present: normal inspection - Respiratory Respiratory exam: Present: normal lung sounds bilaterally. Absent: respiratory distress - Cardiovascular Cardiovascular Exam: Present: regular rate, normal rhythm. Absent: systolic murmur, diastolic murmur, rubs, gallop - Extremities Exam Extremities exam: Present: other (Bilateral lower extremity weakness cellulitis sedated full extension of his lower extremity involving his knee and ankle. No swelling is noted. Pulses are 2+) - Back Exam Back exam: Absent: CVA tenderness (R), CVA tenderness (L) - Neurological Exam Neurological exam: Present: alert, altered, oriented X3, CN II-XII intact. Absent: motor sensory deficit ED Course Vital Signs 03/15/21 18:10 Temperature 98.1 F Pulse Rate 68 Respiratory 16 Rate Blood Pressure 112/72 [Right] O2 Sat by Pulse 98 Oximetry Critical care attestation.: If time is entered above; I have spent that time in minutes in the direct care of this critically ill patient, excluding procedure time. ED Disposition Clinical Impression: Chronic lower back pain, Lower extremity neuropathy Disposition: HOME / SELF CARE / HOMELESS Is pt being admited?: No Does the pt Need Aspirin: No Condition: Stable Instructions: Chronic Back Pain, [id number], Chronic Back Pain, Peripheral Neuropathy Additional Instructions: He was seen emergency department today for your chronic back pain. It is recommended you keep your appointment with your neurology group on 17 March at 11AM fill the prescriptions which were provided for you at [place] as you adjust discharge from there on yesterday with new medications. Referrals: PRIMARY CARE [Referring] - 03/17/21 (Please keep the follow-up that was provided to you at with [facility])
== END 2021-03-15 22:25 | disposition home or self-care (01) ==
LOC: ED 18:03
DX: G62.9 Polyneuropathy, unspecified (principal); G89.29 Other chronic pain; M54.50 Low back pain, unspecified; J45.909 Unspecified asthma, uncomplicated
CPT/HCPCS: 99283

== ENCOUNTER 2021-03-16 06:09 | Emergency (ER) | payer SELFPAY ==
[2021-03-16] MEDS ORDERED: ACETAMINOPHEN 500 MG TAB PO ONE (07:36)
--- NOTE | 2021-03-16 08:21 | Emergency Department Report ---
ED General Adult HPI - General Chief complaint: Pain General Stated complaint: NUMBNESS BILATERAL LEGS/WEAKNESS Time Seen by Provider: 03/16/21 07:27 Source: patient Mode of arrival: Wheelchair Limitations: No Limitations - History of Present Illness Initial comments: This is a 45-year-old male nontoxic, well nourished in appearance, no acute signs of distress presents to the ED with c/o of acute on chronic diffuse joint pains. Patient came into the emergency room also stated that he needs to go to [facility] as they are with him. Patient stated he is homeless. Patient stated typically receives regular Tylenol for pain in [place]. Patient otherwise denies any other complaints or symptoms. Patient stated that he called [facility] which instructed patient to return for pain management. Patient stated he did not have a way to get there so he came into this ER. Patient otherwise denies any chest pain, shortness of breath, fever, chills, nausea, vomiting, headache, stiff neck, numbness or tingling. 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 Patient stated has chronic symptoms of joint pains like these. Patient had allergies to penicillin. Radiation: non-radiation Severity scale (0 -10): 3 Quality: aching Consistency: constant Improves with: none Worsens with: none Associated Symptoms: denies other symptoms. denies: confusion, chest pain, cough, diaphoresis, fever/chills, headaches, loss of appetite, malaise, nausea/vomiting, rash, seizure, shortness of breath, syncope, weakness Treatments Prior to Arrival: none - Related Data Home Medications Medication Instructions Recorded Confirmed Last Taken Ibuprofen 400 mg PO Q6H PRN 02/03/21 02/16/21 Unknown Previous Rx's Medication Instructions Recorded Last Taken Type ALPRAZolam [Xanax TAB] 0.5 mg PO Q8H PRN #14 tablet 02/04/21 Unknown Rx Azithromycin [Zithromax TAB] 1,200 mg PO Th@1600 #8 tablet 02/04/21 Unknown Rx Docusate Sodium [Colace CAP] 100 mg PO BID PRN #30 capsule 02/04/21 Unknown Rx Sulfamethoxazole/Trimethoprim 1 each PO Q24HR #30 tablet 02/04/21 Unknown Rx [Bactrim DS TAB] cephALEXin [Keflex] 500 mg PO Q6HR #40 capsule 02/04/21 Unknown Rx traMADoL [Ultram] 50 mg PO Q6HR PRN #14 tablet 02/04/21 Unknown Rx Acetaminophen [Acetaminophen 8 650 mg PO Q8H PRN #12 tablet.er 03/16/21 Unknown Rx Hour] Allergies Allergy/AdvReac Type Severity Reaction Status Date / Time Penicillins Allergy Angioedema Verified 02/16/21 14:03 cinnamon AdvReac Unknown Hives Verified 02/16/21 14:03 ED Review of Systems ROS: Stated complaint: NUMBNESS BILATERAL LEGS/WEAKNESS Other details as noted in HPI Comment: All other systems reviewed and negative Constitutional: denies: chills, fever Eyes: denies: eye pain, eye discharge, vision change ENT: denies: ear pain, throat pain Respiratory: denies: cough, shortness of breath, wheezing Cardiovascular: denies: chest pain, palpitations Endocrine: no symptoms reported Gastrointestinal: denies: abdominal pain, nausea, diarrhea Genitourinary: denies: urgency, dysuria Musculoskeletal: arthralgia. denies: back pain, joint swelling, myalgia Skin: denies: rash, lesions Neurological: denies: headache, weakness, paresthesias Psychiatric: denies: anxiety, depression Hematological/Lymphatic: denies: easy bleeding, easy bruising ED Past Medical Hx - Past Medical History Hx Psychiatric Treatment: Yes (anxiety) Hx Asthma: Yes Hx HIV: Yes Additional medical history: HIV/AIDS - Surgical History Hx Appendectomy: Yes - Social History Smoking Status: Never Smoker Substance Use Type: None - Medications Home Medications: Home Medications Medication Instructions Recorded Confirmed Last Taken Type Ibuprofen 400 mg PO Q6H PRN 02/03/21 02/16/21 Unknown History ALPRAZolam [Xanax TAB] 0.5 mg PO Q8H PRN #14 tablet 02/04/21 02/16/21 Unknown Rx Azithromycin [Zithromax TAB] 1,200 mg PO Th@1600 #8 tablet 02/04/21 02/16/21 Unknown Rx Docusate Sodium [Colace CAP] 100 mg PO BID PRN #30 capsule 02/04/21 02/16/21 Unknown Rx Sulfamethoxazole/Trimethoprim 1 each PO Q24HR #30 tablet 02/04/21 02/16/21 Unknown Rx [Bactrim DS TAB] cephALEXin [Keflex] 500 mg PO Q6HR #40 capsule 02/04/21 02/16/21 Unknown Rx traMADoL [Ultram] 50 mg PO Q6HR PRN #14 tablet 02/04/21 02/16/21 Unknown Rx Acetaminophen [Acetaminophen 8 650 mg PO Q8H PRN #12 tablet.er 03/16/21 Unknown Rx Hour] ED Physical Exam - General Limitations: No Limitations General appearance: alert, in no apparent distress - Head Head exam: Present: atraumatic, normocephalic - Eye Eye exam: Present: normal appearance - Neck Neck exam: Present: normal inspection, full ROM. Absent: lymphadenopathy - Respiratory Respiratory exam: Present: normal lung sounds bilaterally. Absent: respiratory distress, wheezes, rales, rhonchi, stridor, chest wall tenderness, accessory muscle use, decreased breath sounds, prolonged expiratory - Cardiovascular Cardiovascular Exam: Present: regular rate, normal rhythm, normal heart sounds. Absent: bradycardia, tachycardia, irregular rhythm, systolic murmur, diastolic murmur, rubs, gallop - GI/Abdominal GI/Abdominal exam: Present: soft, normal bowel sounds. Absent: distended, tenderness, guarding, rebound, rigid, diminished bowel sounds - Extremities Exam Extremities exam: Present: normal inspection, full ROM, normal capillary refill. Absent: tenderness - Back Exam Back exam: Present: normal inspection, full ROM. Absent: tenderness, CVA tenderness (R), CVA tenderness (L), muscle spasm, paraspinal tenderness, vertebral tenderness, rash noted - Neurological Exam Neurological exam: Present: alert, oriented X3 - Psychiatric Psychiatric exam: Present: normal affect, normal mood - Skin Skin exam: Present: warm, dry, intact, normal color. Absent: rash ED Course Vital Signs 03/16/21 03/16/21 03/16/21 06:34 09:19 09:21 Temperature 98.2 F 97.9 F Pulse Rate 92 H 80 Respiratory 17 18 18 Rate Blood Pressure 125/83 129/71 [Right] O2 Sat by Pulse 100 100 100 Oximetry - Reevaluation(s) Reevaluation #1: 03/16/21 08:23 Patient is speaking in full sentences with no signs of distress noted. - Consultations Consultation #1: 03/16/21 08:23 child and family services specialist paged and awaiting for callback for consult. Consultation #2: 03/16/21 09:29 Case management (ОЛЬГА AMARO) consulted and will see the patient. ED Medical Decision Making - Medical Decision Making 45-year-old male that presents with generalized arthralgia and needing for social work job titles consult. Patient is stable and was examined by me. child and family services specialist present and given patient information that is needed at this time. Patient received Tylenol 1 g which stated symptoms improved and subsided. I will discharge patient with prescription for Tylenol. Patient was instructed to follow-up with a primary care doctor in 3-5 days or if symptoms worsen and continue return to emergency room as soon as possible. At time of discharge, the patient does not seem toxic or ill in appearance. No acute signs of distress noted. Patient agrees to discharge treatment plan of care. No further questions noted by the patient. Critical care attestation.: If time is entered above; I have spent that time in minutes in the direct care of this critically ill patient, excluding procedure time. ED Disposition Clinical Impression: Homeless Arthralgia Qualifiers: Joint pain location: unspecified Qualified Code(s): M25.50 - Pain in unspecified joint Chronic pain Qualifiers: Chronic pain type: other chronic pain Qualified Code(s): G89.29 - Other chronic pain Disposition: 01 HOME / SELF CARE / HOMELESS Is pt being admited?: No Does the pt Need Aspirin: No Condition: Stable Additional Instructions: Follow-up with a primary care doctor in 3-5 days or if symptoms worsen and continue return to emergency room as soon as possible. Prescriptions: Acetaminophen [Acetaminophen 8 Hour] 650 mg PO Q8H PRN #12 tablet.er PRN Reason: Pain , Severe (7-10) Referrals: BRENT MARTINES MD [Primary Care Provider] - 3-5 Days ROHAN ACROS MD [Staff Physician] - 3-5 Days Time of Disposition: 12:28
[2021-03-16 09:22] VITALS: BP 129/71
== END 2021-03-16 14:17 | disposition home or self-care (01) ==
LOC: ED 06:09
DX: M25.59 Pain in other specified joint (principal); F41.9 Anxiety disorder, unspecified; J45.909 Unspecified asthma, uncomplicated; G89.29 Other chronic pain; Z90.49 Acquired absence of other specified parts of digestive tract; Z79.899 Other long term (current) drug therapy; Z88.0 Allergy status to penicillin; Z91.018 Allergy to other foods; Z59.00 Homelessness unspecified
CPT/HCPCS: 99282